=== PATIENT | female | born 1975 | race African-American/Black ===

== ENCOUNTER 2019-05-26 19:25 | Emergency (ER) | payer OTHER, SELFPAY ==
[2019-05-26] MEDS ORDERED: Ketorolac Tromethamine 30 MG/ML VIAL ONE (20:00)
--- NOTE | 2019-05-26 20:18 | RAD ---
EXAM: XR Toe(s) Rt Min 2 View DATE: 05/26/2019 7:56 PM INDICATION: Right toe injury 2 weeks ago; patient hit the right toe 2 weeks ago getting out of truck COMPARISON: None. FINDING: There is soft tissue swelling involving the third digit of the right foot. There is some pe riarticular osteopenia surrounding the third digit DIP joint. There is some mild periarticular erosions seen along the lateral aspect of the third digit distal phalangeal base as well as along the plantar aspect of the third digit distal phalangeal base. 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 IMPRESSION:Soft tissue swelling involving the third digit of the right foot. Periarticular osteopenia and intra-articular erosions surrounding the third digit distal interphalangeal joint. Findings can be seen related to an crystalline arthropathy such as gout or CPPD deposition disease. Monoarticu lar arthropathy such as this can also be seen with septic arthritis.
== END 2019-05-26 19:27 | disposition home or self-care (01) ==
LOC: ERS 19:25
DX: M10.9 Gout, unspecified (principal); I10 Essential (primary) hypertension
CPT/HCPCS: 96372; J1885

== ENCOUNTER 2019-11-27 14:54 | Emergency (ER) | payer MEDICAID, OTHER ==
[2019-11-27 16:19] LABS: #Basophils 0.1 thou/uL (0.0-0.2); #Eosinphils 0.2 thou/uL (0.0-0.7); #Lymphocytes 1.3 thou/uL (1.20-3.40); #Neutrophils 10.7 thou/uL (1.40-6.50); %Basophils 0.6 % (0.0-1.0); %Eosinophils 1.3 % (0.0-10.0); %Monocytes 7.5 % (0.0-10.0); %Neutrophils 80.7 % (42.0-75.0); Hemoglobin 11.8 g/dL (12.0-16.0); Mean Corpuscular HGB CONC 34.2 g/dL (32.0-36.0); Mean Corpuscular Hemoglobin 32.1 pg (27.0-31.0); Mean Corpuscular Volume 93.8 fL (78.0-98.0); RBC Distribution Width 12.7 % (11.5-14.5); Red Blood Cell (RBC) Count 3.67 mill/uL (4.20-5.40); White Blood Cell (WBC) Count 13.2 thou/uL (4.8-10.8)
[2019-11-27 16:22] LABS: BHCG - Serum Negative (NEGATIVE); Pregs Control Background? CLEAR/WHITE (CLR/WHITE); Pregs Control Bar Appear? YES (CONTROL BAR)
[2019-11-27 16:23] LABS: Mean Platelet Volume 11.5 fL (7.4-10.4); Platelet Count 92 thou/uL (130-400)
[2019-11-27 16:33] LABS: Platelet Morphology Comment Appears Decreased; RBC Morphology Normal
[2019-11-27 17:05] LABS: Bacteria/HPF 3+ HPF (None Seen); Bilirubin Negative (Negative); Blood, Urine 3+ (Negative); Clarity Turbid (Clear); Glucose, Urine (Dipstick) Normal (Negative); Leukocyte 250 Leu/uL (Negative); Nitrite Negative (Negative); Protein, Urine (Dipstick) 70 mg/dL (Neg-Trace); Renal Epithelial 0-3 HPF (None Seen); Squamous Epithelial 0-3 HPF (0-3); Urobilinogen Normal mg/dL (Less than 2)
== END 2019-11-27 17:27 | disposition home or self-care (01) ==
LOC: ERS 14:54
DX: N93.9 Abnormal uterine and vaginal bleeding, unspecified (principal); N39.0 Urinary tract infection, site not specified; I10 Essential (primary) hypertension
CPT/HCPCS: 36415; 81003; 81015; 84703; 85025; 87086; 99284

== ENCOUNTER 2020-01-08 03:19 | Inpatient (IN) | payer MEDICAID, OTHER ==
[2020-01-08] MEDS ORDERED: hydrALAZINE 20 MG/ML VIAL ONE (03:42)
[2020-01-08 04:20] LABS: #Basophils 0.1 thou/uL (0.0-0.2); #Eosinphils 0.1 thou/uL (0.0-0.7); #Lymphocytes 1.4 thou/uL (1.20-3.40); #Monocytes 0.5 thou/uL (0.11-0.59); #Neutrophils 7.5 thou/uL (1.40-6.50); %Basophils 0.7 % (0.0-1.0); %Eosinophils 1.5 % (0.0-10.0); %Lymphocytes 14.4 % (21.0-51.0); %Monocytes 4.7 % (0.0-10.0); %Neutrophils 78.6 % (42.0-75.0); Hemoglobin 10.7 g/dL (12.0-16.0); Mean Corpuscular Hemoglobin 30.1 pg (27.0-31.0); Mean Corpuscular Volume 91.1 fL (78.0-98.0); Mean Platelet Volume 9.5 fL (7.4-10.4); Platelet Count 190 thou/uL (130-400); RBC Distribution Width 14.1 % (11.5-14.5); Red Blood Cell (RBC) Count 3.56 mill/uL (4.20-5.40); White Blood Cell (WBC) Count 9.5 thou/uL (4.8-10.8)
[2020-01-08 04:41] LABS: ALT (SGPT) 74 U/L (8-55); AST (SGOT) 46 U/L (5-34); Alkaline Phosphatase 138 U/L (40-110); Anion Gap 16 mmol/L (10-20); BUN (Urea Nitrogen) 69 mg/dL (7.0-18.7); Bilirubin, Total 0.6 mg/dL (0.2-1.2); Calc. Creatinine Clearance 0 mL/min (70-130); Calcium 9.2 mg/dL (7.8-10.44); Carbon Dioxide 22 mmol/L (22-29); Chloride 101 mmol/L (98-107); Estimated GFR-MDRD 8; Globulin 2.9 g/dL (2.4-3.5); Glucose 112 mg/dL (70-105); Potassium 3.4 mmol/L (3.5-5.1); Protein, Total 6.9 g/dL (6.0-8.3); Sodium 136 mmol/L (136-145)
[2020-01-08 04:41] LABS: Amphetamine Not Detected (NotDetected); Barbiturates Screen Not Detected (NotDetected); Benzodiazepine Screen Not Detected (NotDetected); Cocaine Metabolite Screen Not Detected (NotDetected); Medtox Control Line Valid? VALID (VALID); Medtox Reader # READER 4; Methadone Not Detected (NotDetected); Methamphetamine Not Detected (NotDetected); Opiate Screen Not Detected (NotDetected); Oxycodone Screen Not Detected (NotDetected); Phencyclidine (PCP) Not Detected (NotDetected); THC/Cannabinoid Screen Not Detected (NotDetected); Tricyclic Screen Not Detected (NotDetected)
[2020-01-08] MEDS ORDERED: Labetalol HCl 100 MG/20 ML VIAL ONE (04:54)
[2020-01-08 05:02] LABS: CKMB 5.3 ng/mL (0-6.6)
[2020-01-08] MEDS ORDERED: Aspirin 325 MG TAB ONE (05:34)
[2020-01-08] MEDS ORDERED: Nitroglycerin 2% Ointment 1 INCH/1 GM Packet ONE (05:34)
[2020-01-08] MEDS ORDERED: Furosemide 40 MG/4 ML VIAL ONE (05:34)
[2020-01-08] MEDS ORDERED: Ondansetron PF 4 MG/2 ML Vial ONE (05:37)
[2020-01-08] MEDS ORDERED: Nitroglycerin 0.4 MG TAB (25 Tab Bottle) PO PRN (05:42)
[2020-01-08] MEDS ORDERED: niCARdipine 20MG In NaCl 20 MG/200 ML BAG ONE (06:03)
--- NOTE | 2020-01-08 06:11 | PDOC.EVN ---
Event Note - Event Note Event Note: [id number] dictated
[2020-01-08 07:05] LABS: Troponin I 0.199 ng/mL (< 0.028)
--- NOTE | 2020-01-08 08:19 | HP ---
CHIEF COMPLAINT: Shortness of breath and headache. HISTORY OF PRESENT ILLNESS: Ms. Cheatham is a 44-year-old female with past medical history of hypertension, chronic kidney disease ?stage 5, presents to the emergency room with headache, nausea, and shortness of breath that has been going on for the last month. The patient said that her primary care physician recently adjusted her blood pressure medications because her kidney function has been worsening. She is currently on losartan for hypertension. Workup in the emergency room, the patient initially had a blood pressure of 221/151. The patient was given labetalol. Blood pressure went down to 200/130. The patient is going to be started on IV Cardene drip. On lab work, she was found to have a creatinine of 6.8. Potassium is 3.4. Troponin 0.2. BNP 50505. Denies fevers, chills. The patient is being admitted to hospital for further management. PAST MEDICAL HISTORY: 1. Hypertension. 2. Chronic kidney disease. PAST SURGICAL HISTORY: Kidney stone stent. FAMILY HISTORY: Reviewed and noncontributory. SOCIAL HISTORY: Smokes 1 pack a day. Drinks alcohol socially. Denies drug abuse. HOME MEDICATIONS: Please see home medication reconciliation form for updated medications. ALLERGIES: NO KNOWN ALLERGIES. REVIEW OF SYSTEMS: Review of 14 systems negative except what is mentioned in history of present illness. PHYSICAL EXAMINATION: GENERAL: The patient is awake, alert, in moderate distress. VITAL SIGNS: Blood pressure 200/130. HEAD: Normocephalic, atraumatic. NECK: Supple. CHEST: Few bibasilar crackles. HEART: S1, S2. Regular. ABDOMEN: Soft, nontender. Bowel sounds present. NEUROLOGIC: Awake, alert, oriented x3. No focal deficits. PSYCHIATRIC: Unable to assess. EXTREMITIES: No clubbing or cyanosis. GENITOURINARY: No suprapubic tenderness. No flank tenderness. LABORATORY DATA: As mentioned above in the history of present illness. ASSESSMENT: 1. Hypertensive emergency. 2. Acute congestive heart failure. 3. Acute renal failure on chronic kidney disease. 4. Elevated troponin? Rule out acute coronary syndrome. 5. History of kidney stones. 6. Headache. PLAN: 1. Admit. 2. The patient is going to be started on IV Cardene drip and will be admitted to CCU. 3. Serial troponins. 4. Aspirin. 5. 2D echo. 6. Consult Jewelry Enameler for evaluation and further management. 7. Consult Applications Sales Representative for evaluation and further management. 8. Reconcile home medications. 9. DVT prophylaxis as appropriate. 10. Expected length of stay, 2 midnights or more. Job ID: [id number]
[2020-01-08] MEDS: Furosemide 40 MG/4 ML VIAL SLOW IVP SCH ×2 (08:39→14:31)
[2020-01-08] MEDS: Aspirin 325 MG TAB PO SCH (08:40)
[2020-01-08] MEDS: Heparin 5,000 UNITS/ML VIAL SC SCH ×3 (08:47→20:15)
[2020-01-08] MEDS ORDERED: Metoprolol Tartrate 25 MG TAB PO SCH ×2 (09:00→11:00)
--- NOTE | 2020-01-08 09:02 | RAD ---
CHEST 1 VIEW: HISTORY: Dyspnea, headache, nausea and vomiting, body aches. COMPARISON: 11/28/2016. FINDINGS: Heart size is borderline. Mild bilateral vascular congestion with some increased linear and intersti tial changes noted bilaterally and slight costophrenic angle blunting suggesting probable mild or min imal edema versus diffuse pneumonitis which could include viral varieties. No confluent pneumonia. IMPRESSION: Mild cardiomegaly with probable small pleural effusions and vascular congestion and probably mild naila ateral edema. No confluent lobar pneumonia. Correlate clinically. Consider followup with PA and la teral chest. POS: [facility]
[2020-01-08] MEDS ORDERED: Senokot 8.6 MG TAB PO PRN (09:48)
[2020-01-08] MEDS: Acetaminophen 325 MG TAB PO PRN ×2 (10:03→20:15)
[2020-01-08] MEDS ORDERED: niCARdipine 25 MG in Sodium Chloride 0.9% 250 ML 240 ML IVPB SCH (10:30)
[2020-01-08 10:41] LABS: Troponin I 0.206 ng/mL (< 0.028)
[2020-01-08] MEDS ORDERED: Potassium Chloride 20 MEQ TAB PO PRN (10:45)
--- NOTE | 2020-01-08 11:29 | ULT ---
EXAM: US Abdominal CLINICAL HISTORY: Elevated liver function tests. Nausea, vomiting and upper abdominal pain. COMPARISON: None. FINDINGS: Pancreas: The head and proximal pancreatic body have a normal echotexture. IVC: Visualized IVC has a normal caliber. Aorta: Visualized aorta has a normal caliber. Liver:Normal hepatic parenchymal echotexture. No hepatic masses or intrahepatic biliary dilatation. T he contour of the hepatic margin is maintained. Right hepatic lobe measures 15.8 cm. Gallbladder: No sonographic evidence of cholelithiasis, gallbladder wall thickening or pericholecysti c fluid. Zhao's sign:Negative CBD: 0.55 cm common bile duct diameter Portal vein: Patent. Appropriate directional flow. Right kidney: Normal cortical echotexture. No hydronephrosis. Right kidney measuring 5.9 x 4.6 x 9.9 cm in length. Left kidney: Normal cortical echotexture. No hydronephrosis . Left kidney measuring 7.1 x 3.5 x 4.5 cm in length Spleen: No myometrial echotexture, measuring 8.6 cm in maximum dimension IMPRESSION: Unremarkable exam.
[2020-01-08 11:46] LABS: BHCG - Serum Negative (NEGATIVE); Pregs Control Background? CLEAR/WHITE (CLR/WHITE); Pregs Control Bar Appear? YES (CONTROL BAR)
[2020-01-08] MEDS: traMADol HCl 50 MG TAB PO PRN (12:21)
[2020-01-08 13:43] LABS: HBCM Index 0.05 S/CO (0-0.79); HBSAg Index 0.15 S/CO (0-0.99); Hep A IgM AB Non-Reactive (NonReactive); Hep A IgM S/CO 0.11 S/CO (0-0.79); Hep B Surf Ag Non-Reactive S/CO (NonReactive); Hep C IgG Ab Non-Reactive (NonReactive); Hep C Index 0.09 S/CO (0-0.79); Hepatitis B Core IgM Abs Non-Reactive (NonReactive)
--- NOTE | 2020-01-08 14:00 | CON ---
DATE OF CONSULTATION: 01/08/2020 HISTORY OF PRESENT ILLNESS: Colette Cheatham is a 44-year-old female with hypertension. She apparently has had intermittent nausea and vomiting for a month. She says she has been unable to keep her blood pressure pills down. She has chronic kidney disease and is followed by seo marketing specialist here in [facility]. Blood pressure on presentation was 221/151. She has subsequently been admitted to the critical care unit. She has been weaned off her Cardene drip. Her blood pressure is back in the normal range currently. Her only complaint is a headache. She has not thrown up today, but said she did throw up yesterday. She reports pain in her epigastrium. PAST MEDICAL HISTORY: Remarkable for: 1. Chronic kidney disease. 2. Hypertension. 3. Nephrolithiasis in the past. SOCIAL HISTORY: She is a pack-a-day smoker. Drinks occasionally. MEDICATIONS: She says she takes her medicine when she could keep it down, but had been unable to keep her medicine down. REVIEW OF SYSTEMS: Ten points otherwise negative. She has never had right upper quadrant pain or fatty food intolerance. She denies hematemesis or bright red blood per rectum or melena. PHYSICAL EXAMINATION: VITAL SIGNS: Heart rate is in the 70s, blood pressure 144/88, respiratory rates in the teens, and oximetry is 99. HEENT: Pupils are equal. Sclerae are anicteric. Extraocular movements are full. NECK: Supple. No lymphadenopathy. LUNGS: Clear. HEART: Regular rhythm. S1 and S2 are normal. ABDOMEN: Soft and nontender. EXTREMITIES: Without clubbing, cyanosis, or edema. LABORATORY DATA: White count 9.5, hemoglobin 10.7, and platelets 190. Electrolytes are normal. BUN 69 and creatinine 6.8. Creatinine in the system here last checked in 2017 was 0.93. IMPRESSION: Persistent nausea and vomiting. She is not uremic. I supposed some of this could be related to her kidney disease. She also has mildly elevated liver enzymes. The etiology of this is unclear. Her BNP was 15,945. It is not surprising that she felt bad with a blood pressure with a diastolic of over 150. Mild interstitial edema is likely related to her blood pressure. It is very unlikely she has a COVID infection. Gastroenterology probably needs to be involved to make sure she does not have some type of chronic gastritis leading to her persistent symptoms. I doubt this is gallbladder disease. I doubt it is entirely explained by renal insufficiency. She is still puking when she goes home. She would not be able to keep her blood pressure pills down, so we need to get this issue resolved while she is here. Once she is weaned off Cardene, she could in theory be transferred out of Critical Care Unit. TIME SPENT: This is a 70-minute consult, 50% of the time was spent on the unit coordinating care. Job ID: [id number] MARIFER
--- NOTE | 2020-01-08 14:08 | CON ---
DATE OF CONSULTATION: REASON FOR CONSULTATION: Elevated BNP. PRIMARY BINDER LOCKSTITCH: None. HISTORY OF PRESENT ILLNESS: Ms. Cheatham is a 44-year-old woman, who has not been seen or evaluated by Cardiology in the past. She recently presented with hypertensive urgency. Blood pressure was 221/151 while in the emergency room. She had associated shortness of breath. Now that blood pressure is better, symptoms are much improved. Her BNP was 15,000. No chest pain or pressure, shortness of breath, or associated symptoms. PAST MEDICAL HISTORY: Hypertension and chronic kidney disease. SOCIAL HISTORY: Positive tobacco use. ALLERGIES: NONE. REVIEW OF SYSTEMS: A 10-point review of systems is reviewed as above, otherwise negative. HOME MEDICATIONS: Include: 1. Losartan. 2. Atorvastatin. PHYSICAL EXAMINATION: VITAL SIGNS: Blood pressure 140/92, pulse 68, respirations 20. GENERAL: The patient is a pleasant woman, in no acute distress, appears stated age. HEAD, EYES, EARS, NOSE AND THROAT: Sclerae without icterus. Mouth: Moist mucous membranes, normal palate. NECK: No jugular venous distention. Carotid upstroke is brisk. No bruits bilaterally. LUNGS: Clear to auscultation. HEART: Regular rate and rhythm, normal S1 and S2. ABDOMEN: Soft, nontender, nondistended. EXTREMITIES: No edema. LABORATORY DATA: Hemoglobin 10.7, hematocrit 32.4. Creatinine 6.8 with GFR of 8. Troponin 0.224. BNP as above. IMPRESSION: 1. Hypertensive crisis. 2. Shortness of breath. 3. Elevated troponin. RECOMMENDATIONS: Ms. Cheatham's elevated BNP is likely multifactorial. She may have a component of systolic versus diastolic dysfunction in addition to creatinine of 6.8. At this point, we would recommend conservative therapy. We would recommend reviewing her echo. Since she is followed by Renal, we would recommend blood pressure management per Renal. Recommendation on extent of renal dysfunction will also be per Renal. Certainly, it seems reasonable with combined diastolic/systolic dysfunction in addition to advanced renal insufficiency, this may have precipitated her BNP of 15,000. Job ID: [id number]
[2020-01-08] MEDS ORDERED: Propofol 1,000 MG/100 ML VIAL IV ONE (15:10)
[2020-01-08] MEDS ORDERED: Nitroglycerin 50 MG/250 ML BOT 0 ML ONE (15:18)
--- NOTE | 2020-01-08 15:43 | PDOC.HOSPP ---
- Subjective Encounter Date: 01/08/20 Encounter Time: 12:10 Subjective: still has some nasuea; BP is improving, on cardene gtt, i have increased BB. - Objective Vital Signs & Weight: Vital Signs (12 hours) Temp Pulse Ox 01/08/20 12:00 98.2 F 01/08/20 08:00 98.1 F 95 Weight Weight 123 lb 14.397 oz Most Recent Monitor Data Heart Rate from ECG 61 NIBP 151/104 NIBP BP-Mean 119 Respiration from ECG 13 SpO2 100 I&O: 01/07/20 01/08/20 01/09/20 06:59 06:59 06:59 Intake Total 520 Output Total 600 Balance -80 Result Diagrams: 01/08/20 03:47 01/08/20 03:47 Hospitalist ROS - Medication Medications: Active Medications Generic Name Dose Route Start Last Admin Trade Name Freq PRN Reason Stop Dose Admin Acetaminophen 650 mg 01/08/20 09:47 01/08/20 10:03 Tylenol PO 650 mg Q6H PRN Administration Headache/Fever or Pain Aspirin 325 mg 01/08/20 09:00 01/08/20 08:40 Aspirin PO Not Given DAILY FIDENCIO Furosemide 40 mg 01/08/20 06:00 01/08/20 14:31 Lasix SLOW IVP 40 mg 0600,1400 FIDENCIO Administration Heparin Sodium (Porcine) 5,000 units 01/08/20 09:00 01/08/20 08:47 Heparin SC 5,000 units TID FIDENCIO Administration Sodium Chloride 10 ml 01/08/20 09:00 01/08/20 08:51 Flush - Normal Saline IVF 10 ml Q12HR FIDENCIO Administration Tramadol HCl 50 mg 01/08/20 09:47 01/08/20 12:21 Ultram PO 50 mg Q8H PRN Administration Breakthrough Pain - Exam General Appearance: NAD, awake alert Eye: PERRL ENT: normocephalic atraumatic Neck: supple Heart: RRR, normal peripheral pulses Respiratory: CTAB, normal chest expansion Gastrointestinal: soft, normal bowel sounds Neurological: no focal deficits Hosp A/P - Plan persistent N/V - mulitifactorial, with main concern for worsening kidney fn.. --renal on board. HTN Urgency abn trop d/t type demand ischemia w.. HTN Urgency --on cardene gtt -- wean off as BB dose inc'd to 50 bid -cardiology and renal on board. A/ch combined syn and diastolikc dysnf Interstitial edema . high BNP - 15K --lasix IV -s-trict monitoring i/O and daily wts -echo ordered on /CKD III hx of nephrolithiasis -not on nephrotoxic [other than ultram] -caution w.. aggressive IV diuresis. full code
--- NOTE | 2020-01-08 16:00 | CON ---
DATE OF CONSULTATION: 01/08/2020 REQUESTING PHYSICIAN: Dr. Vazquez. REASON FOR CONSULTATION: Nausea and vomiting. HISTORY OF PRESENT ILLNESS: Colette Cheatham is a very pleasant 44-year-old woman with a history of hypertension and chronic kidney disease. She was admitted to the hospital overnight with hypertensive emergency with a blood pressure initially 221/151. She was placed on a Cardene drip and blood pressures have improved significantly this morning. Presenting symptoms included headaches and shortness of breath as well as worsening nausea. She reports that really over the past month, she has been having significant intermittent nausea and vomiting, bothering her most days. It has become progressively worse and more difficult to take her antihypertensive medications. Along with the nausea, she has been having pain in the epigastrium and left upper quadrant. There has been no fever, no hematemesis or any change in bowel movements. She is not having diarrhea, constipation, melena, or hematochezia with this. Upon presentation, labs are showing acute on chronic renal failure with BUN 69, creatinine 6.0. BNP is also very elevated to 15,945. She also does have some mild LFT elevation with AST 46, ALT 74. She has been treated with Cardene drip, which was just now discontinued this morning. Nephrology and Cardiology evaluations including echocardiogram are all pending today. REVIEW OF SYSTEMS: Full review of systems including constitutional, head, eyes, ears, nose, throat, GI, , cardiovascular, respiratory, musculoskeletal, neurologic systems is negative except as noted in the HPI. PAST MEDICAL HISTORY: Hypertension; chronic kidney disease, not on dialysis; urolithiasis with stent placement. ALLERGIES: NO KNOWN DRUG ALLERGIES. OUTPATIENT MEDICATIONS: 1. Losartan 50 mg daily. 2. Atorvastatin 20 mg daily. INPATIENT MEDICATIONS: 1. Aspirin 325 mg daily. 2. Lasix 40 mg IV twice daily. 3. Heparin 5000 units subcutaneously t.i.d. 4. Hydralazine 20 mg p.r.n. 5. Metoprolol 25 mg b.i.d. 6. Zofran p.r.n. 7. Senna p.r.n. 8. Tramadol p.r.n. FAMILY HISTORY: Noncontributory. SOCIAL HISTORY: The patient does smoke one pack of cigarettes per day. Alcohol use is social. No drug use. PHYSICAL EXAMINATION: VITAL SIGNS: Blood pressure 138/88, pulse 78, and 98% oxygen saturation on room air. GENERAL: A 44-year-old woman, lying in bed comfortably, in no distress. SKIN: No jaundice. No rashes were palpable. EYES: No scleral icterus. Extraocular movements are intact. ENT: Mucous membranes are moist. No oral lesions. LYMPH: No submandibular or supraclavicular lymphadenopathy. THYROID: Nontender to palpation. HEART: Regular rate and rhythm. LUNGS: Bibasilar crackles. No wheezing. No respiratory distress. ABDOMEN: Flat. Bowel sounds present. Soft. Some tenderness to palpation in the left upper quadrant and epigastrium. Nontender elsewhere. There is what I believed to be palpable splenomegaly. EXTREMITIES: No peripheral edema. VESSELS: Radial pulses 2+ bilaterally. NEUROLOGIC: Cranial nerves 2 through 12 are intact bilaterally. No focal deficits. LABORATORY STUDIES: Hemoglobin 10.7, WBC 9.5, platelets 190, MCV 91.1. Sodium 136, potassium 3.4, BUN 69, creatinine 6.80, glucose 112, total bilirubin 0.6, alkaline phosphatase 138, AST 46, ALT 74, albumin 4.0. Troponin 0.2, stable. BNP is 15,945. IMAGING STUDIES: Chest x-ray showed cardiomegaly and mild bilateral pulmonary edema. ASSESSMENT AND PLAN: 1. Nausea and vomiting. 2. Left upper quadrant and epigastric pain. 3. Elevated LFTs, mild. 4. Hypertensive emergency. 5. Acute on chronic kidney injury. 6. Possible acute congestive heart failure. The patient and I discussed a wide differential for nausea and vomiting. This has really been going on for the past month. It may be primarily a manifestation of worsening kidney failure and uremia, but also need to consider primary gastrointestinal pathology or biliary etiology. She is having abdominal pain with this as well as mild LFT elevation. Awaiting Cardiology and Nephrology evaluations as well today. For our part, we will obtain an abdominal ultrasound, trend LFTs tomorrow as well as get a lipase with tomorrow morning's labs. We will get viral hepatitis serologies. We will tentatively plan for diagnostic esophagogastroduodenoscopy tomorrow, if okay from a cardiopulmonary perspective. Continue with diuresis in the meantime. Continue with antiemetics as needed. Thank you for the consultation. We will follow up results of labs and ultrasound, and plan for esophagogastroduodenoscopy tomorrow. Please call anytime with questions or concerns. Job ID: [id number]
--- NOTE | 2020-01-08 18:48 | CON ---
DATE OF CONSULTATION: HISTORY OF PRESENT ILLNESS: Ms. Cheatham is a 44-year-old black female, who initially was admitted for shortness of breath and headache. She was found to have CHF as well as an acute kidney injury/over chronic renal failure. BNP was noted at 15,945. She was also noted to have a poorly controlled blood pressure and for that reason is Cardene drip. Once the blood pressure was improved, the patient started breathing better. She voices no new complaints this morning. REVIEW OF SYSTEMS: Occasional nausea and vomiting. No diarrhea. No constipation. No productive cough. No fever or chills. Shortness of breath, resolved. No chest pain. Occasional headache. No diplopia. No gross hematuria. No dysuria. No urinary frequency. PAST MEDICAL HISTORY: Includes 1. Hypertension. 2. Recent diagnosis of kidney problem. 3. Nephrolithiasis. PAST SURGICAL HISTORY: Status post ureteral stent placement, status post cystoscopy. FAMILY HISTORY: No family history of ESRD. SOCIAL HISTORY: Patient is . Lives in [place]. Three children. Smokes about one pack a day for the last 25 years. Alcohol, 6 packs per week. Education, high school. Used to work in [employer]. Denies any IV drug abuse. ALLERGIES: NONE. TRAUMA: None. IMMUNIZATIONS: Up to date. HOSPITALIZATIONS: Please see past medical history. PHYSICAL EXAMINATION: VITAL SIGNS: Blood pressure is noted at 138/88, heart rate is 78, respiratory rate 19, and O2 saturation 98%. GENERAL: Awake, alert, and comfortable, not in distress. SKIN: Adequate turgor. HEENT: Patient has a slightly pale conjunctivae. Anicteric sclerae. No neck mass. No carotid bruits. No JVD. CHEST: No deformities. LUNGS: Decreased breath sounds. HEART: Normal sinus rhythm. No murmur. No gallops. No rubs. ABDOMEN: Globular, soft, nontender, no masses. EXTREMITIES: No edema. No deformities. NEUROLOGIC: Oriented to 3 spheres. Moving all extremities. No tremors. No asterixis. No ataxia. IMAGING: Abdominal ultrasound was said to be normal. There is no hydronephrosis. There is a normal cortical echotexture. Chest x-ray of January 08, 2020, mild cardiomegaly with increased lung markings. LABORATORIES: Of January 08, 2020, white count 9.5 and hemoglobin 10.7. Sodium 136, potassium 3.4, chloride 101, carbon dioxide 22, BUN 69, creatinine 6.8, AST 46, and ALT 74. Troponin I 0.206. Albumin is 4.0. Urinalysis of November 27, 2019, shows rbc 11 to 20, wbc 11 to 20, protein is 70. November 28, 2016, creatinine was 0.93. ASSESSMENT/PLAN: 1. Acute kidney injury, consider possible hemodynamically mediated dysfunction. Patient was noted to have a poorly controlled blood pressure as well was in congestive heart failure. I would probably continue to observe with this patient. Continue current diuretic regimen. No indication for any emergent hemodialysis with this patient. Her potassium is not elevated and volume status is much improved with control of the blood pressure. 2. Hypertension, currently on high Cardene drip and blood pressure is much improved. 3. Chronic renal failure. The possibility of a chronic glomerulonephritis remains with this patient, especially with the proteinuria and the hematuria. We will simply observe this patient for the moment. We will recheck basic metabolic profile tomorrow. Please note, the renal ultrasound was within normal limits. There is no evidence of obstruction. Agree with the current management. Job ID: [id number]
[2020-01-08] MEDS: Metoprolol Tartrate 50 MG TAB PO SCH (20:15)
[2020-01-09 04:15] LABS: #Basophils 0.1 thou/uL (0.0-0.2); #Eosinphils 0.3 thou/uL (0.0-0.7); #Lymphocytes 1.5 thou/uL (1.20-3.40); #Monocytes 0.4 thou/uL (0.11-0.59); #Neutrophils 4.7 thou/uL (1.40-6.50); %Eosinophils 3.7 % (0.0-10.0); %Lymphocytes 21.6 % (21.0-51.0); %Monocytes 6.3 % (0.0-10.0); %Neutrophils 67.4 % (42.0-75.0); Hemoglobin 9.5 g/dL (12.0-16.0); Mean Corpuscular HGB CONC 32.1 g/dL (32.0-36.0); Mean Corpuscular Hemoglobin 29.6 pg (27.0-31.0); Mean Corpuscular Volume 92.1 fL (78.0-98.0); Mean Platelet Volume 9.7 fL (7.4-10.4); Platelet Count 163 thou/uL (130-400); RBC Distribution Width 14.2 % (11.5-14.5); Red Blood Cell (RBC) Count 3.21 mill/uL (4.20-5.40); White Blood Cell (WBC) Count 6.9 thou/uL (4.8-10.8)
[2020-01-09] MEDS: hydrALAZINE 20 MG/ML VIAL SLOW IVP PRN ×2 (07:24→11:23)
[2020-01-09 08:04] LABS: Anion Gap 16 mmol/L (10-20); BUN (Urea Nitrogen) 73 mg/dL (7.0-18.7); Calc. Creatinine Clearance 10 mL/min (70-130); Calcium 8.1 mg/dL (7.8-10.44); Carbon Dioxide 22 mmol/L (22-29); Chloride 102 mmol/L (98-107); Estimated GFR-MDRD 8; Glucose 96 mg/dL (70-105); Potassium 3.7 mmol/L (3.5-5.1); Sodium 136 mmol/L (136-145)
[2020-01-09] MEDS ORDERED: PROPOFOL 200 MG/20 ML VIAL ONE (08:21)
--- NOTE | 2020-01-09 08:54 | OP ---
DATE OF PROCEDURE: 01/09/2020 TETRYL DISSOLVER OPERATOR SURGEON: None. PROCEDURE: Esophagogastroduodenoscopy with biopsies. INDICATIONS: 1. Nausea and vomiting. 2. Left upper quadrant pain. MEDICATIONS: See Anesthesia record. FINDINGS: After discussion of the risks, benefits, and alternatives of the procedure, informed consent was obtained and witnessed. Pre-endoscopic cardiopulmonary examination was satisfactory. Time-out was performed before sedation was achieved. Sedation was achieved with Anesthesia assistance in the Endoscopy Unit. A Pentax adult upper endoscope was placed into the oropharynx and passed through the cricopharyngeus under direct visualization. The esophageal mucosa appeared normal throughout with a normal-appearing Z-line. The endoscope was advanced into the stomach. Forward and retroflexed views of the entire gastric mucosa were obtained. There was diffuse gastritis, characterized by patches of moderate erythema throughout the gastric fundus, body, and antrum. There is some friability, though no significant erosions or ulcerations noted. Biopsies were obtained from the gastric antrum, body, and fundus to rule out H pylori infection. The endoscope was advanced through the pylorus and into the first and second portions of the duodenum, which appeared normal. The upper endoscope was completely withdrawn and the patient allowed to recover. The patient tolerated the procedure well. There were no immediate postprocedure complications. IMPRESSION: 1. Diffuse moderate nonerosive gastritis, biopsied. 2. Otherwise, normal esophagogastroduodenoscopy. RECOMMENDATIONS: 1. Follow up pathology results on the gastric biopsies. If H pylori is present, treat with triple therapy and confirm eradication. 2. Advance diet. 3. Stop smoking. 4. Pantoprazole 40 mg daily. 5. We will see her back in the GI Clinic in 3 to 4 weeks. GI will sign off. Please call back anytime with questions or concerns. Job ID: [id number]
[2020-01-09] MEDS: Heparin 5,000 UNITS/ML VIAL SC SCH ×3 (09:08→20:02)
[2020-01-09] MEDS: Furosemide 40 MG/4 ML VIAL SLOW IVP SCH ×2 (09:08→15:02)
[2020-01-09] MEDS: Aspirin 325 MG TAB PO SCH (09:09)
[2020-01-09] MEDS: Metoprolol Tartrate 50 MG TAB PO SCH (09:09)
[2020-01-09] MEDS: Acetaminophen 325 MG TAB PO PRN (09:12)
--- NOTE | 2020-01-09 10:04 | PDOC.CPN ---
- Subjective Date: 01/09/20 Time: 10:01 Interval history: Patient without complaints. s/p EGD today. - Review of Systems General: denies: fever/chills, weight/appetite/sleep changes, night sweats, fatigue Respiratory: denies: cough, congestion, shortness of breath, exercise intolerance Cardiovascular: denies: chest pain, palpitation, edema, paroxysmal nocturnal dyspnea, orthopnea Gastrointestinal: denies: nausea, vomiting, diarrhea, constipation, abd pain, GI bleeding Musculoskeletal: denies: pain, tenderness, stiffness, swelling, arthritis/ arthralgias Neurological: denies: numbness, syncope, seizure, weakness - Objective Allergies/Adverse Reactions: Allergies Allergy/AdvReac Type Severity Reaction Status Date / Time No Known Allergies Allergy Unverified 10/16/19 06:10 Visit Medications: Current Medications Acetaminophen (Tylenol) 650 mg PO Q6H PRN PRN Reason: Headache/Fever or Pain Last Admin: 01/09/20 09:12 Dose: 650 mg Amlodipine Besylate (Norvasc) 5 mg PO 1700 [facility] Aspirin (Aspirin) 325 mg PO DAILY [facility] Last Admin: 01/09/20 09:09 Dose: 325 mg Carvedilol (Coreg) 12.5 mg PO BID-[facility] Furosemide (Lasix) 40 mg SLOW IVP 0600,1400 [facility] Last Admin: 01/09/20 09:08 Dose: 40 mg Heparin Sodium (Porcine) (Heparin) 5,000 units SC TID [facility] Last Admin: 01/09/20 09:08 Dose: 5,000 units Hydralazine HCl (Apresoline) 20 mg SLOW IVP Q4H PRN PRN Reason: Hypertension Last Admin: 01/09/20 07:24 Dose: 20 mg Nicardipine HCl 25 mg/ Sodium (Chloride) 250 mls @ 0 mls/hr IVPB INF [facility]; Protocol Nitroglycerin (Nitrostat) 0.4 mg PO Q5MIN PRN PRN Reason: Chest Pain Ondansetron HCl (Zofran) 4 mg IVP Q6H PRN PRN Reason: Nausea/Vomiting Pantoprazole Sodium (Protonix) 40 mg PO DAILY [facility] Potassium Chloride (K-Dur) 40 meq PO ASDIR PRN PRN Reason: FOR SERUM K+ 2.5 - 3.5 Senna (Senokot) 2 tab PO BIDPRN PRN PRN Reason: Constipation Sodium Chloride (Flush - Normal Saline) 10 ml IVF Q12HR [facility] Last Admin: 01/09/20 09:09 Dose: 10 ml Sodium Chloride (Flush - Normal Saline) 10 ml IVF PRN PRN PRN Reason: Saline Flush Tramadol HCl (Ultram) 50 mg PO Q8H PRN PRN Reason: Breakthrough Pain Last Admin: 01/08/20 12:21 Dose: 50 mg Vital Signs & Weight: Vital Signs Temp Pulse Resp BP BP Pulse Ox 01/09/20 07:29 98.0 F 66 18 182/118 H 97 01/09/20 07:24 66 182/118 H 01/09/20 04:00 98.6 F 61 18 161/104 H 100 01/08/20 23:26 158/105 H Weight 130 lb 3.2 oz - Physical Exam General: alert & oriented x3, appears well HEENT: mucus membranes moist Neck: supple neck Cardiac: regular rate and rhythm Lungs: clear to auscultation Neuro: grossly intact Abdomen: soft, non-tender Extremities: no edema Skin: clear Musculoskeletal: no pain - Labs Result Diagrams: 01/09/20 04:00 01/09/20 04:00 Troponin/CKMB CK-MB (CK-2) 5.3 ng/mL (0-6.6) 01/08/20 03:47 Troponin I 0.206 ng/mL (< 0.028) H 01/08/20 09:59 - Assessment/Plan Assessment/Plan: 1. HTN Urgency 2. Abnormal EKG - ? LVH 3. CKD-V 4. Elevated trop Add Norvasc 5mg once daily. Change Toprol to Coreg for improved BP control. ECHO ordered for today. Elevated trop could be related to HTN urgency and demand ischemia, but needs stress test in the future as BP improved to definitively r/o CAD.
--- NOTE | 2020-01-09 10:57 | PRG ---
DATE OF SERVICE: 01/09/2020 SERVICE: Renal Medicine. SUBJECTIVE: Ms. Cheatham is a 44-year-old black female, who was seen for an acute kidney injury on top of a possible chronic renal failure. She was also noted to have labile hypertension. Please note that the patient had stopped taking her BP medications in the last several days prior to admission. She may be having a rebound hypertension at that time. She stopped the BP medications because she has been having nausea and vomiting. She has also been evaluated by Cardiology, Pulmonary. No new complaints today except for mild shortness of breath. The patient is being diuresed. The patient voices no other complaints. She denies any chest pain or syncopal episode. OBJECTIVE: VITAL SIGNS: Blood pressure 182/118, heart rate 66, respiratory rate 18, temperature 98, and pulse ox 97%. GENERAL: Noted to be awake, alert, comfortable, not in overt distress. SKIN: Adequate turgor. HEENT: She has slightly pale conjunctivae. Anicteric sclerae. NECK: No neck mass. No carotid bruits. No JVD. CHEST: No deformities. LUNGS: Clear breath sounds. HEART: Normal sinus rhythm. No murmur. No gallops. No rubs. ABDOMEN: Globular, soft, and nontender. No masses. EXTREMITIES: No edema. No deformities. MEDICATIONS: Medications of January 09, 2020, were also reviewed. LABORATORY DATA: Laboratories of January 09, 2020; sodium 136, potassium 3.7, chloride 102, carbon dioxide 22, BUN 73, creatinine 6.95, glucose 96, and calcium 8.1. BNP 10,909. Troponin I 0.206. ASSESSMENT AND PLAN: 1. Acute kidney injury/chronic renal failure. Creatinine is improved. We will continue to optimize blood pressure control. Currently, on IV diuretics due to the shortness of breath as well as possible congestive heart failure. No indication for any emergent hemodialysis. The patient is being worked up for a possible cause of her chronic renal failure. Previous urinalysis has shown proteinuria and hematuria. We will rule out vasculitis with this patient - ANCA and SHANE has been ordered. 2. Hypertension. We will add clonidine 0.1 mg tablet b.i.d. Currently, Cardiology is following the patient. Amlodipine was started today at 5 mg tablet once a day. 3. Mild shortness of breath - cardiac echo is currently pending. The initial chest x-ray on January 08, 2020, showed mild cardiomegaly with increased lung markings. She is currently on diuretics. Agree with current management. Recheck basic metabolic panel and CBC in a.m. Job ID: [id number]
[2020-01-09 12:40] LABS: Bacteria/HPF None Seen HPF (None Seen); Bilirubin Negative (Negative); Blood, Urine 3+ (Negative); Clarity Clear (Clear); Glucose, Urine (Dipstick) Normal (Negative); Leukocyte Negative Leu/uL (Negative); Nitrite Negative (Negative); Protein, Urine (Dipstick) 20 mg/dL (Neg-Trace); RBC/HPF 21-50 HPF (0-3); Squamous Epithelial 0-3 HPF (0-3); Urobilinogen Normal mg/dL (Less than 2)
--- NOTE | 2020-01-09 15:18 | PRG ---
DATE OF SERVICE: 01/09/2020 SUBJECTIVE: Colette Cheatham says her stomach feels better. Her headaches better. Her hemodynamics are stable. She underwent endoscopy which showed finding suggestive of diffuse gastritis. OBJECTIVE: VITAL SIGNS: Her blood pressure is still intermittently elevated. This morning she is 182/118, but at noon she is 149/70. LUNGS: Clear. HEART: Regular rhythm. ABDOMEN: Soft. LABORATORY DATA: Creatinine 6.95, BUN 73, yesterday creatinine was 6.8. I suspect with control of her blood pressure, her creatinine is going to go up. Her BNP today was 10,909. IMPRESSION: 1. Hypertensive renal disease. 2. Hypertension out of control with hypertensive emergency on presentation. 3. Gastritis, rule out Helicobacter. PLAN: Continue supportive care. Await gastric biopsies. Monitor renal function. Job ID: [id number]
[2020-01-09 15:38] LABS: ANA Symphony (Qualitative) Negative (Negative); ANA Symphony (Quantitative) 0.2 Ratio (< 0.7 Negative); dsDNA IgG Antibody 2.2 IU/mL (<10 Negative)
[2020-01-09] MEDS: Carvedilol 6.25 MG TAB PO SCH (17:26)
[2020-01-09] MEDS: Amlodipine 5 MG TAB PO SCH (17:26)
[2020-01-09] MEDS ORDERED: cloNIDine 0.1 MG TAB PO PRN (17:48)
--- NOTE | 2020-01-09 17:50 | PDOC.HOSPP ---
- Subjective Encounter Date: 01/09/20 Encounter Time: 13:00 Subjective: Patient seen and examined. No new complaints. No overnight events - Objective Vital Signs & Weight: Vital Signs (12 hours) Temp Pulse Resp BP BP Pulse Ox 01/09/20 17:29 61 156/100 H 01/09/20 15:25 97.7 F 55 L 12 153/90 H 100 01/09/20 12:22 149/70 H 01/09/20 11:17 97.6 F 60 12 163/106 H 100 01/09/20 07:29 98.0 F 66 18 182/118 H 97 01/09/20 07:24 66 182/118 H Weight Weight 130 lb 3.2 oz Most Recent Monitor Data Heart Rate from ECG 64 NIBP 146/100 NIBP BP-Mean 115 Respiration from ECG 17 SpO2 100 I&O: 01/08/20 01/09/20 01/10/20 06:59 06:59 06:59 Intake Total 595 480 Output Total 900 1100 Balance -305 -620 Result Diagrams: 01/09/20 04:00 01/09/20 04:00 Radiology Reviewed by me: Yes (CXR - no infiltrate) EKG Reviewed by me: Yes (Tele SR) Hospitalist ROS - Review of Systems Respiratory: denies: cough, dry, shortness of breath, hemoptysis, SOB with excertion, pleuritic pain, sputum, wheezing, other Cardiovascular: denies: chest pain, palpitations, orthopnea, paroxysmal noc. dyspnea, edema, light headedness, other Gastrointestinal: denies: nausea, vomiting, abdominal pain, diarrhea, constipation, melena, hematochezia, other - Medication Medications: Active Medications Generic Name Dose Route Start Last Admin Trade Name Freq PRN Reason Stop Dose Admin Acetaminophen 650 mg 01/08/20 09:47 01/09/20 09:12 Tylenol PO 650 mg Q6H PRN Administration Headache/Fever or Pain Amlodipine Besylate 5 mg 01/09/20 17:00 01/09/20 17:26 Norvasc PO 5 mg 1700 [facility]IDENCIO Administration Aspirin 325 mg 01/08/20 09:00 01/09/20 09:09 Aspirin PO 325 mg DAILY [facility] Administration Carvedilol 12.5 mg 01/09/20 17:00 01/09/20 17:26 Coreg PO 12.5 mg BID-WM [facility]IDENCIO Administration Furosemide 40 mg 01/08/20 06:00 01/09/20 15:02 Lasix SLOW IVP 40 mg 0600,1400 [facility]IDENCIO Administration Heparin Sodium (Porcine) 5,000 units 01/08/20 09:00 01/09/20 15:03 Heparin SC 5,000 units TID [facility]IDENCIO Administration Hydralazine HCl 20 mg 01/08/20 05:51 01/09/20 11:23 Apresoline SLOW IVP 20 mg Q4H PRN Administration Hypertension Pantoprazole Sodium 40 mg 01/09/20 09:00 01/09/20 10:01 Protonix PO 40 mg DAILY [facility] Administration Sodium Chloride 10 ml 01/08/20 09:00 01/09/20 09:09 Flush - Normal Saline IVF 10 ml Q12HR [facility]ENCIO Administration Tramadol HCl 50 mg 01/08/20 09:47 01/08/20 12:21 Ultram PO 50 mg Q8H PRN Administration Breakthrough Pain - Exam General Appearance: NAD Neck: supple, no JVD Heart: RRR, no gallops, no rubs Respiratory: no wheezes, no ronchi Gastrointestinal: non-tender, non-distended, normal bowel sounds Extremities: no cyanosis, no clubbing Skin: normal turgor Neurological: no new deficit Hosp A/P - Plan DVT proph w/SCDs Hypertensive emergency requiring Cardene drip Acute on chronic diastolic HF RHODA on CKD 5 N/V due to gastritis - nonerosive - s/p EGD Chronic anemia - prob due to renal insuff Abn EKG Hypokalemia PLAN: Cont Coreg Cont IV Lasix Cont Amlodipine Cont Clonidine Cont PPI AM labs
[2020-01-09] MEDS: cloNIDine 0.1 MG TAB PO SCH (20:02)
[2020-01-09] MEDS: traMADol HCl 50 MG TAB PO PRN (22:31)
[2020-01-09] MEDS: Ondansetron PF 4 MG/2 ML Vial IVP PRN (22:34)
[2020-01-10 04:13] LABS: #Basophils 0.1 thou/uL (0.0-0.2); #Eosinphils 0.2 thou/uL (0.0-0.7); #Monocytes 0.4 thou/uL (0.11-0.59); #Neutrophils 4.9 thou/uL (1.40-6.50); %Basophils 0.8 % (0.0-1.0); %Eosinophils 3.8 % (0.0-10.0); %Lymphocytes 15.3 % (21.0-51.0); %Monocytes 5.9 % (0.0-10.0); %Neutrophils 74.3 % (42.0-75.0); Hemoglobin 9.6 g/dL (12.0-16.0); Mean Corpuscular HGB CONC 33.4 g/dL (32.0-36.0); Mean Corpuscular Hemoglobin 30.9 pg (27.0-31.0); Mean Corpuscular Volume 92.3 fL (78.0-98.0); Platelet Count 159 thou/uL (130-400); RBC Distribution Width 14.1 % (11.5-14.5); Red Blood Cell (RBC) Count 3.09 mill/uL (4.20-5.40); White Blood Cell (WBC) Count 6.6 thou/uL (4.8-10.8)
[2020-01-10 04:31] LABS: Albumin 3.2 g/dL (3.5-5.0); Anion Gap 17 mmol/L (10-20); BUN (Urea Nitrogen) 83 mg/dL (7.0-18.7); BUN/Creatinine Ratio 10.64; Calc. Creatinine Clearance 8 mL/min (70-130); Calcium 8.1 mg/dL (7.8-10.44); Carbon Dioxide 22 mmol/L (22-29); Chloride 102 mmol/L (98-107); Estimated GFR-MDRD 7; Glucose 133 mg/dL (70-105); Phosphorus 6.3 mg/dL (2.3-4.7); Sodium 137 mmol/L (136-145)
[2020-01-10] MEDS: Furosemide 40 MG/4 ML VIAL SLOW IVP SCH ×2 (05:36→09:31)
--- NOTE | 2020-01-10 09:22 | PRG ---
DATE OF SERVICE: 01/10/2020 SUBJECTIVE: Ms. Cheatham is a 44-year-old black female, who was initially admitted for labile hypertension. During the initial evaluation, she was noted to have had an acute kidney injury with a significantly elevated creatinine. She was also found to be in CHF. This morning, she is feeling better. She denies any chest pain or shortness of breath. Currently, she is on diuretic regimen. In addition, a cardiac echo was done on January 09, 2020, which showed an EF of 50% to 55%. OBJECTIVE: VITAL SIGNS: Blood pressure 168/101, heart rate 60, respiratory rate 16, temperature 97.5, and O2 saturation 100% on room air. GENERAL: The patient is noted to be awake, alert, comfortable, not in overt distress. SKIN: Adequate turgor. HEENT: She has pinkish conjunctivae. Anicteric sclerae. No neck mass. No carotid bruits. No JVD. CHEST: No deformities. LUNGS: Clear breath sounds. No wheezing. No crackles. HEART: Normal sinus rhythm. No murmur. No gallops. No rubs. ABDOMEN: Globular, soft, nontender. No masses. EXTREMITIES: No edema. No deformities. MEDICATIONS: Of January 10, 2020, were reviewed. LABORATORY DATA: Of January 10, 2020, white count 6.6, hemoglobin 9.6. Sodium 137, potassium 4, chloride 102, carbon dioxide 22, BUN 83, creatinine 7.8, glucose 133, phosphorus is 6.3. ASSESSMENT AND PLAN: 1. Hyperphosphatemia. Start Renvela 800 mg p.o. t.i.d. with meals. 2. Acute kidney injury/chronic renal failure, unimproved renal function. This patient may need dialytic intervention. I had long discussion with her in dialysis. She will think about it. I will do an options visit with the dialysis team whether she might prefer peritoneal or hemodialysis. 3. Labile hypertension. Continue current BP medications. Check renal ultrasound in full with Doppler studies. 4. Congestive heart failure, clinically much improved. She may have underlying diastolic dysfunction. Due to the improved shortness of breath, we will decrease Lasix to once a day dosing. 5. Recheck basic metabolic and CBC in a.m. Job ID: [id number]
[2020-01-10] MEDS: Heparin 5,000 UNITS/ML VIAL SC SCH ×2 (09:30→20:18)
[2020-01-10] MEDS: cloNIDine 0.1 MG TAB PO SCH ×2 (09:30→20:18)
[2020-01-10] MEDS: Sevelamer Carbonate 800 MG TAB PO SCH ×3 (09:31→16:15)
[2020-01-10] MEDS: Aspirin 325 MG TAB PO SCH (09:31)
[2020-01-10] MEDS: Carvedilol 6.25 MG TAB PO SCH ×2 (10:11→16:15)
--- NOTE | 2020-01-10 10:19 | PRG ---
DATE OF SERVICE: 01/10/2020 SUBJECTIVE: Colette Cheatham is still having some elevated blood pressures, mainly in the morning. She is having no respiratory complaints. Vital signs are otherwise stable, but her diastolic is over 100 this morning. Creatinine is up to 7.8, BUN is up to 83, potassium is 4. Ejection fraction is normal on echocardiogram, but she did have evidence of diastolic dysfunction. IMPRESSION: 1. Gastritis leading to persistent nausea and vomiting. Biopsies are pending. 2. Hypertension [id number] with hypertensive pulmonary edema on presentation. 3. Acute on chronic kidney disease, probably getting close to a point where she may need dialysis. She is stable from a pulmonary standpoint. We will sign off. Job ID: [id number]
[2020-01-10] MEDS ORDERED: traMADol HCl 50 MG TAB PO PRN (10:30)
[2020-01-10 11:29] VITALS: BMI 18.6
--- NOTE | 2020-01-10 11:43 | PRG ---
DATE OF SERVICE: 01/10/2020 SUBJECTIVE: Ms. Cheatham has no current complaints. No chest pain or pressure noted. She is contemplating dialysis after discussing with Dr. Osman. OBJECTIVE: VITAL SIGNS: Blood pressure 120/85, pulse 71, temperature 97.5. LUNGS: Clear to auscultation. HEART: Regular rate and rhythm. ABDOMEN: Soft, nontender, and nondistended. EXTREMITIES: No edema. LABORATORY DATA: Recent echo with Doppler shows LVEF 50% to 55% with moderate concentric LVH. IMPRESSION: 1. Malignant hypertension. 2. Chronic kidney disease, stage 5. 3. Noncompliance. RECOMMENDATIONS: Ms. Cheatham does admit to noncompliance for blood pressure in the past. Blood pressure current management by Renal. She is contemplating dialysis. From my standpoint, I have no further recommendations. We will follow peripherally. Job ID: [id number]
--- NOTE | 2020-01-10 12:30 | PDOC.HOSPP ---
- Subjective Encounter Date: 01/10/20 Encounter Time: 11:15 Subjective: Patient seen and examined for RHODA/HTN emergency. Some SOB last night. Denies any CP. No new complaints. No overnight events - Objective Vital Signs & Weight: Vital Signs (12 hours) Temp Pulse Resp BP BP Pulse Ox 01/10/20 11:14 97.5 F L 71 16 128/85 100 01/10/20 07:39 97.5 F L 60 16 168/101 H 100 01/10/20 03:34 97.4 F L 61 20 158/101 H 99 Weight Admit Weight 123 lb 14.397 oz Weight 126 lb Most Recent Monitor Data Heart Rate from ECG 64 NIBP 146/100 NIBP BP-Mean 115 Respiration from ECG 17 SpO2 100 I&O: 01/09/20 01/10/20 01/11/20 06:59 06:59 06:59 Intake Total 595 845 Output Total 900 1650 Balance -305 -805 Result Diagrams: 01/10/20 04:02 01/10/20 04:02 EKG Reviewed by me: Yes (Tele SR) Hospitalist ROS - Review of Systems Cardiovascular: denies: chest pain, palpitations, orthopnea, paroxysmal noc. dyspnea, edema, light headedness, other Gastrointestinal: denies: nausea, vomiting, abdominal pain, diarrhea, constipation, melena, hematochezia, other - Medication Medications: Active Medications Generic Name Dose Route Start Last Admin Trade Name Freq PRN Reason Stop Dose Admin Acetaminophen 650 mg 01/08/20 09:47 01/09/20 09:12 Tylenol PO 650 mg Q6H PRN Administration Headache/Fever or Pain Amlodipine Besylate 5 mg 01/09/20 17:00 01/09/20 17:26 Norvasc PO 5 mg 1700 [facility] Administration Carvedilol 12.5 mg 01/09/20 17:00 01/10/20 10:11 Coreg PO 12.5 mg BID-WM [facility] Administration Clonidine 0.1 mg 01/09/20 21:00 01/10/20 09:30 Catapres PO 0.1 mg BID [facility] Administration Furosemide 40 mg 01/10/20 09:00 01/10/20 09:31 Lasix SLOW IVP 40 mg DAILY [facility] Administration Hydralazine HCl 20 mg 01/08/20 05:51 01/09/20 11:23 Apresoline SLOW IVP 20 mg Q4H PRN Administration Hypertension Ondansetron HCl 4 mg 01/08/20 09:47 01/09/20 22:34 Zofran IVP 4 mg Q6H PRN Administration Nausea/Vomiting Pantoprazole Sodium 40 mg 01/09/20 09:00 01/10/20 09:31 Protonix PO 40 mg DAILY [facility] Administration Sevelamer Carbonate 800 mg 01/10/20 08:00 01/10/20 11:18 Renvela PO 800 mg TID-WM [facility] Administration Sodium Chloride 10 ml 01/08/20 09:00 01/10/20 09:32 Flush - Normal Saline IVF 10 ml Q12HR [facility]IO Administration - Exam General Appearance: NAD Heart: RRR, no gallops, no rubs Respiratory: no wheezes, no rales, no ronchi Gastrointestinal: soft, non-tender, non-distended, normal bowel sounds Extremities: no cyanosis, no edema Neurological: no new deficit Psychiatric: normal affect, A&O x 3 Hosp A/P - Plan DVT proph w/heparin, DVT proph w/SCDs Hypertensive emergency requiring Cardene drip Acute on chronic diastolic HF RHODA on CKD 5 - worsening N/V due to gastritis - nonerosive - s/p EGD Chronic anemia - prob due to renal insuff Abn EKG Hypokalemia PLAN: Cont Coreg/Amlodipine/Clonidine Lasix dose reduced Renal ultrasound today Cont PPI AM labs Cont other meds as above
--- NOTE | 2020-01-10 15:18 | ULT ---
BILATERAL RENAL ULTRASOUND COMPLETE INCLUDING COLOR AND SPECTRAL DOPPLER IMAGING: Date: 01/10/2020 HISTORY: Chronic renal failue FINDINGS: Right kidney measures 8.0 x 3.7 x 3.5 cm. Left kidney measures 8.9 x 4.2 x 4.2 cm. No renal hydronephrosis. Marked increased renal cortical echogenicity, evidence for nonspecific chronic renal disease. Urinary bladder appears unremarkable. No evidence for abnormally increased renal artery velocities. Right renal artery/aortic ratio is 1.0. Left renal artery/aortic ratio is 0.5. Right arcuate resistive index is 0.6. Left arcuate resistive index is 0.7. IMPRESSION: 1. Evidence for nonspecific chronic renal disease. 2. No renal hydronephrosis. 3. No evidence for renal artery stenosis. POS: RRE
[2020-01-10] MEDS: Amlodipine 5 MG TAB PO SCH (16:15)
[2020-01-11 04:22] LABS: #Basophils 0.1 thou/uL (0.0-0.2); #Eosinphils 0.3 thou/uL (0.0-0.7); #Lymphocytes 1.1 thou/uL (1.20-3.40); #Monocytes 0.5 thou/uL (0.11-0.59); #Neutrophils 3.7 thou/uL (1.40-6.50); %Basophils 0.9 % (0.0-1.0); %Eosinophils 5.3 % (0.0-10.0); %Lymphocytes 19.8 % (21.0-51.0); %Monocytes 9.4 % (0.0-10.0); %Neutrophils 64.6 % (42.0-75.0); Hemoglobin 8.6 g/dL (12.0-16.0); Mean Corpuscular HGB CONC 32.8 g/dL (32.0-36.0); Mean Corpuscular Hemoglobin 30.2 pg (27.0-31.0); Platelet Count 157 thou/uL (130-400); Red Blood Cell (RBC) Count 2.85 mill/uL (4.20-5.40); White Blood Cell (WBC) Count 5.7 thou/uL (4.8-10.8)
[2020-01-11 04:40] LABS: Albumin 3.2 g/dL (3.5-5.0); Anion Gap 16 mmol/L (10-20); BUN (Urea Nitrogen) 85 mg/dL (7.0-18.7); BUN/Creatinine Ratio 10.33; Calc. Creatinine Clearance 8 mL/min (70-130); Carbon Dioxide 24 mmol/L (22-29); Chloride 100 mmol/L (98-107); Estimated GFR-MDRD 6; Glucose 85 mg/dL (70-105); Phosphorus 6.3 mg/dL (2.3-4.7); Potassium 3.7 mmol/L (3.5-5.1); Sodium 136 mmol/L (136-145)
[2020-01-11] MEDS: cloNIDine 0.1 MG TAB PO SCH ×2 (07:59→22:23)
[2020-01-11] MEDS: Furosemide 40 MG/4 ML VIAL SLOW IVP SCH (08:00)
[2020-01-11] MEDS: Sevelamer Carbonate 800 MG TAB PO SCH ×2 (08:00→12:42)
[2020-01-11] MEDS: Heparin 5,000 UNITS/ML VIAL SC SCH (08:00)
[2020-01-11] MEDS: Aspirin 81 mg Enteric Coated Tablet PO SCH (08:00)
[2020-01-11] MEDS: Carvedilol 6.25 MG TAB PO SCH (08:00)
[2020-01-11] MEDS ORDERED: Tuberculin PPD 0.1 ML VIAL I-DERMAL SCH (08:30)
--- NOTE | 2020-01-11 08:47 | PRG ---
DATE OF SERVICE: 01/11/2020 SUBJECTIVE: Ms. Cheatham is a 44-year-old black female, who was admitted for labile hypertension/CHF. She was seen by the Renal Service for her acute kidney injury on top of her chronic renal failure. Renal function continues to worsen. I had a long discussion with the patient and she has agreed to proceed with dialytic intervention. She prefers peritoneal dialysis. We will be consulting surgery for placement of a PD catheter. The patient denies any chest pain or shortness of breath. OBJECTIVE: VITAL SIGNS: Blood pressure is 165/104, heart rate is 62, respiratory rate 18, temperature 96.9, O2 saturation 100%. GENERAL: The patient is awake, alert, comfortable, not in overt distress. SKIN: Adequate turgor. HEENT: She has pinkish conjunctivae. Anicteric sclerae. No neck mass. No carotid bruits. No JVD. CHEST: No deformities. LUNGS: Clear breath sounds. No murmur. No gallops. No rubs. ABDOMEN: Globular, soft, nontender. No masses. EXTREMITIES: No edema, no deformities. IMAGING: Renal ultrasound of January 10, 2020, showed marked increased renal cortical echogenicity. No evidence of renal artery stenosis. LABORATORY DATA: Laboratories of January 11, 2020, white count 5.7, hemoglobin 8.6. Sodium 136, potassium 3.7, chloride 100, carbon dioxide 24, BUN 85, creatinine is 8.23, GFR 6 mL/minute, glucose 85, calcium 8, phosphorus is 6.3, albumin 3.2. PTH is 552.6. ASSESSMENT AND PLAN: 1. Secondary hyperparathyroidism-calcitriol 0.25 mcg tablet daily. 2. Hyperphosphatemia. Renvela 800 mg one tablet t.i.d. with meals. 3. Chronic renal failure- most likely from hypertensive nephropathy. Renal function continues to worsen. Consult Surgery for placement of PD catheter. 4. Labile hypertension continue, current blood pressure medications. 5. Agree with current management. Job ID: [id number]
--- NOTE | 2020-01-11 10:14 | ULT ---
EXAM: Vein mapping for dialysis access HISTORY: End-stage renal disease. TECHNIQUE: Multiplanar grayscale and color Doppler images were obtained in a bilateral upper extremit y venous ultrasound. Spectral analysis of the Doppler waveforms of the vessels were performed. FINDINGS: The bilateral internal jugular veins and subclavian veins are patent without evidence of th rombus. Right brachial artery 4.4 mm Right radial artery 2.2 mm Right ulnar artery 2.2 mm Left brachial artery 4.2mm Left radial artery 2.3 mm Left ulnar artery 1.2 mm RIGHT CEPHALIC VEIN in millimeters 3.7 -- Shoulder 3.4 -- Upper arm 3.3 -- Mid upper arm 3.0-- Just proximal to the elbow 2.1 -- Just distal to the elbow 2.7 -- Forearm 1.4 -- Wrist RIGHT BASILIC VEIN in millimeters 4.1 -- Shoulder 4.1 -- Upper arm 5.1 -- Mid upper arm 5.1 with partial compressibility -- Just proximal to the elbow 1.0 -- Just distal to the elbow 1.6 -- Forearm 1.8 -- Wrist LEFT CEPHALIC VEIN in millimeters 1.4 -- Shoulder 1.6 -- Upper arm 1.7 -- Mid upper arm 1.5 -- Just proximal to the elbow 1.5 -- Just distal to the elbow 1.7 -- Forearm 1.6 -- Wrist LEFT BASILIC VEIN in millimeters 3.1 -- Shoulder 3.1 -- Upper arm 2.6 -- Mid upper arm 2.1 -- Just proximal to the elbow 1.7 -- Just distal to the elbow 1.2 -- Forearm 1.3 -- Wrist IMPRESSION: Vein mapping for dialysis access as above
[2020-01-11] MEDS ORDERED: Lidocaine 1% PF 5 ML VIAL ONE (11:03)
[2020-01-11] MEDS ORDERED: EPHEDRINE 25 MG/5 ML SYRINGE ONE (11:03)
[2020-01-11] MEDS ORDERED: PROPOFOL 200 MG/20 ML VIAL ONE (11:03)
[2020-01-11] MEDS ORDERED: Ondansetron PF 4 MG/2 ML Vial ONE (11:03)
[2020-01-11] MEDS ORDERED: PHENYLEPHRINE-NS 100 MCG/ML 10 ML SYRINGE ONE (11:03)
[2020-01-11 11:14] LABS: Hep B Core Total Ab Non-Reactive (NonReactive); Hep B Core Total Index 0.04 S/CO (0-0.79)
[2020-01-11 11:18] LABS: HBSAg Index 0.14 S/CO (0-0.99); Hep B Surf Ag Non-Reactive S/CO (NonReactive)
[2020-01-11 11:19] LABS: HBSAB Concentration 2.53 mIU/mL; Hep B Surf AB Non-Reactive (NonReactive); Hep C IgG Ab Non-Reactive (NonReactive); Hep C Index 0.09 S/CO (0-0.79)
[2020-01-11] MEDS: Calcitriol 0.25 MCG CAP PO SCH (13:12)
[2020-01-11] MEDS ORDERED: Acetaminophen 500 MG TAB PO PRN (13:14)
[2020-01-11] MEDS ORDERED: CEFAZOLIN 2 GM in Premix Bag 1 BAG IVPB SCH (13:15)
--- NOTE | 2020-01-11 13:56 | CON ---
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 Osman. I have been asked to see her regarding placement of a peritoneal dialysis catheter, as she needs to be dialyzed soon. The patient also this hospitalization has been seen by Cardiology and Gastroenterology. The patient was found on upper endoscopy to have diffuse erosive gastritis. She is recommended to stop smoking. H pylori studies have been submitted. Echocardiogram obtained on 01/09/2020 noting 50% to 55% EF, moderate LVH, no significant valvular disease except for mild to moderate MR. Dr. Esquivel and Elissa Baker had been seeing her. They have been seeing her for hypertensive emergency. They prescribed medication to control her hypertension. Dr. Esquivel saw her today and Cardiology signed off as she has no cardiac symptoms. The patient underwent ultrasound vein mapping demonstrating superior veins in her left. She had right when I was consulted, her nurse removed. Since Dr. Osman has talked to her this morning, the patient has talked to her family and she has decided she does not want to do PD at this time. I have explained hemodialysis and peritoneal dialysis. I have talked to Dr. Osmna by telephone and returned to talk to the patient again, spending an hour or more with the patient regarding these issues. Currently, the patient was told that if she decides she wants to do peritoneal dialysis later, she could. Plan at this time is place a hemodialysis catheter and right arm fistula and a central line. She understands risks and benefits of procedure and consents. She understands she should not allow Emergency Room or nursing to place antecubital IVs. She should avoid a phlebotomy of antecubital veins. ALLERGIES: NONE SOCIAL HISTORY: Tobacco, one pack per day. Alcohol, occasionally. MEDICATIONS: Outpatient; 1. Losartan. 2. Atorvastatin. Inpatient, she has been placed on; 1. Tramadol. 2. Sevelamer. 3. Clonidine. 4. Carvedilol. 5. Amlodipine. PAST SURGICAL HISTORY: Urolithiasis, urinary stenting, bilateral tubal ligation. 3, para 3. PAST MEDICAL HISTORY: Hypertension. REVIEW OF SYSTEMS: Ten-point noncontributory. No history of colonoscopy. PHYSICAL EXAMINATION: VITAL SIGNS: Height 5 foot 9 inches, 124 pounds, 18 BMI. Temperature 97.6, pulse 57, and blood pressure 159/104. HEAD, EARS, EYES, NOSE, AND THROAT: Unremarkable.. NEUROLOGICAL: Intact. LUNGS: Clear to auscultation. CARDIAC: Regular rate and rhythm without murmur or gallop. ABDOMEN: Soft and nontender. Umbilical ring in place. Palpable radial pulses. Scar from right antecubital IV, which has been removed. EXTREMITIES: No ankle edema. LABORATORY DATA: White count 5, hemoglobin 8.6. Sodium 136, BUN 85, creatinine 8.23, GFR 6. ASSESSMENT AND PLAN: 1. End-stage renal disease. The patient does not desire peritoneal dialysis at this time. We will plan placement of right arm primary fistula and a hemodialysis catheter and a central line. She understands risks, benefits, and consents. They will initiate dialysis tomorrow. 2. Tobacco abuse. 3. Alcohol use. Job ID: [id number]
--- NOTE | 2020-01-11 15:43 | PDOC.HOSPP ---
- Subjective Encounter Date: 01/11/20 Encounter Time: 12:00 Subjective: Patient seen and examined for RHODA/HTN. Feels weak. Reports some blood in urine. No other complaints. No overnight events - Objective Vital Signs & Weight: Vital Signs (12 hours) Temp Pulse Resp BP BP Pulse Ox 01/11/20 12:00 97.6 F 57 L 15 159/104 H 100 01/11/20 08:00 165/104 H 01/11/20 07:59 165/104 H 01/11/20 07:54 96.9 F L 62 18 165/104 H 100 01/11/20 06:35 100 01/11/20 04:00 98.3 F 59 L 14 151/87 H 100 Weight Admit Weight 123 lb 14.397 oz Weight 124 lb 11.2 oz Most Recent Monitor Data Heart Rate from ECG 64 NIBP 146/100 NIBP BP-Mean 115 Respiration from ECG 17 SpO2 100 I&O: 01/10/20 01/11/20 01/12/20 06:59 06:59 06:59 Intake Total 845 940 Output Total 1650 850 Balance -805 90 Result Diagrams: 01/11/20 04:07 01/11/20 04:07 EKG Reviewed by me: Yes (Tele SR) Hospitalist ROS - Review of Systems Cardiovascular: denies: chest pain, palpitations, orthopnea, paroxysmal noc. dyspnea, edema, light headedness, other Gastrointestinal: denies: nausea, vomiting, abdominal pain, diarrhea, constipation, melena, hematochezia, other - Medication Medications: Active Medications Generic Name Dose Route Start Last Admin Trade Name Darek PRN Reason Stop Dose Admin Amlodipine Besylate 5 mg 01/09/20 17:00 01/10/20 16:15 Norvasc PO 01/11/20 23:59 5 mg 1700 FIDENCIO Administration Aspirin 81 mg 01/11/20 09:00 01/11/20 08:00 Ecotrin PO 81 mg DAILY FIDENCIO Administration Calcitriol 0.25 mcg 01/11/20 09:00 01/11/20 13:12 Rocaltrol PO 0.25 mcg DAILY FIDENCIO Administration Carvedilol 12.5 mg 01/09/20 17:00 01/11/20 08:00 Coreg PO 12.5 mg BID- FIDENCIO Administration Clonidine 0.1 mg 01/09/20 21:00 01/11/20 07:59 Catapres PO 0.1 mg BID FIDENCIO Administration Furosemide 40 mg 01/10/20 09:00 01/11/20 08:00 Lasix SLOW IVP 40 mg DAILY FIDENCIO Administration Heparin Sodium (Porcine) 5,000 units 01/10/20 21:00 01/11/20 08:00 Heparin SC 5,000 units BID FIDENCIO Administration Hydralazine HCl 20 mg 01/08/20 05:51 01/09/20 11:23 Apresoline SLOW IVP 20 mg Q4H PRN Administration Hypertension Ondansetron HCl 4 mg 01/08/20 09:47 01/09/20 22:34 Zofran IVP 4 mg Q6H PRN Administration Nausea/Vomiting Pantoprazole Sodium 40 mg 01/09/20 09:00 01/11/20 08:00 Protonix PO 40 mg DAILY FIDENCIO Administration Sevelamer Carbonate 800 mg 01/10/20 08:00 01/11/20 12:42 Renvela PO Not Given TID-WM FIDENCIO Sodium Chloride 10 ml 01/08/20 09:00 01/11/20 08:01 Flush - Normal Saline IVF 10 ml Q12HR FIDENCIO Administration Tuberculin PPD 0.1 ml 01/11/20 08:30 01/11/20 13:12 Tuberculin Ppd I-DERMAL 01/14/20 08:31 0.1 ml ONE FIDENCIO Administration - Exam General Appearance: NAD Heart: RRR, no gallops Respiratory: no wheezes, no ronchi Gastrointestinal: non-tender, non-distended, normal bowel sounds Extremities: no cyanosis, no clubbing Hosp A/P - Plan DVT proph w/SCDs Hypertensive emergency requiring Cardene drip Acute on chronic diastolic HF RHODA on CKD 5 - worsening N/V due to gastritis - nonerosive - s/p EGD Chronic anemia - prob due to renal insuff Abn EKG Hypokalemia Gross hematuria PLAN: DC SQ Heparin due to hematuria Monitor HH Cont Coreg Increase Amlodipine Cont Clonidine IV Lasix per Nephrology Cont other meds as above
[2020-01-11] MEDS ORDERED: traMADol HCl 50 MG TAB PO PRN (17:05)
[2020-01-11] MEDS ORDERED: Protamine Sulfate 50 MG/5 ML VIAL ONE (17:07)
[2020-01-11] MEDS ORDERED: Lidocaine 2% PF 5 ML VIAL ONE (17:07)
[2020-01-11] MEDS ORDERED: Heparin 5,000 UNITS/ML VIAL ONE (17:07)
[2020-01-11] MEDS ORDERED: Sodium Chloride 0.9% 40 ML ONE (17:07)
[2020-01-11] MEDS ORDERED: Bupivacaine PF 0.5% 30 ML VIAL ONE (17:07)
[2020-01-11] MEDS ORDERED: Heparin 10,000 UNITS/1 ML VIAL ONE (17:07)
[2020-01-11] MEDS ORDERED: Lidocaine 2% Jelly 5 ML TUBE ONE (17:08)
[2020-01-11] MEDS ORDERED: Fentanyl 100 MCG/2 ML VIAL ONE (17:08)
[2020-01-11] MEDS ORDERED: hydrALAZINE 20 MG/ML VIAL ONE (19:29)
--- NOTE | 2020-01-11 19:42 | RAD ---
CHEST ONE VIEW: 01/11/20 INDICATION: History of central line placement. COMPARISON: Prior exam dated 01/08/20. FINDINGS: There is persistent cardiomegaly with pulmonary vascular congestion. There is a new right IJ dialysis catheter and a new left IJ central venous catheter. The tip of the catheters are seen within the reg ion of the SVC. No pneumothorax is evident. Osseous structures are unchanged. IMPRESSION: 1. Stable cardiomegaly with pulmonary vascular congestion. 2. New central line. POS: BH
[2020-01-11] MEDS: Ondansetron PF 4 MG/2 ML Vial IVP PRN (21:21)
[2020-01-12] MEDS: Amlodipine 5 MG TAB PO SCH ×3 (00:11→20:52)
[2020-01-12] MEDS: Carvedilol 6.25 MG TAB PO SCH ×3 (00:11→17:52)
[2020-01-12] MEDS: Sevelamer Carbonate 800 MG TAB PO SCH ×4 (00:12→17:52)
--- NOTE | 2020-01-12 02:25 | OP ---
DATE OF PROCEDURE: 01/11/2020 PREOPERATIVE DIAGNOSIS: End-stage renal disease. POSTOPERATIVE DIAGNOSIS: End-stage renal disease. PROCEDURES PERFORMED: Right internal jugular cuffed tunneled hemodialysis catheter, AngioDynamics pre-curved. Left internal jugular triple-lumen catheter, right arm primary fistula antecubital vein to the proximal radial artery, outflow cephalic vein primarily secondary to outflow basilic vein. Ligation of lateral collateral to the cephalic vein. ANESTHESIA: General, local 0.5% Marcaine 30 mL mixed with 1% Xylocaine with epinephrine 20 mL. Ultrasound and fluoroscopy used for line placement. DESCRIPTION OF PROCEDURE: The patient was taken to the operating room, where under general anesthesia, neck, chest, and right upper extremity were prepared with ChloraPrep and draped in routine fashion. Local anesthetic was infiltrated in the skin and subcutaneous tissue about the operative sites. Using ultrasound guidance, the right and left internal jugular veins were cannulated with trocar catheter. J-wire was threaded. Trocar catheter was removed. Skin site enlarged sharply. Stab incision was made over the right chest. Seldinger technique was used to place triple-lumen catheter in the left IJ, secured with interrupted 3-0 nylon suture and aspirated each port of blood, flushed with saline solution. A CHG dressing was applied. On the right side, the tunneling device was used to tunnel the pre-curved AngioDynamics cuffed tunneled dialysis catheter between the 2 incisions, placed the fabric cuff beneath the skin exit site over the chest and secured with 3-0 nylon sutures, and sterile dressing was applied. Small and medium size dilators were placed over the J-wire and removed. Dilator and Peel-Away sheath were placed over the J-wire into the internal jugular vein and superior vena cava. Dilator and J-wire were removed. Catheter was placed with the Peel-Away sheath. Peel-Away sheath was removed. Fluoroscopically, catheter was noted to be in good position. Platysma was approximated with 4-0 Monocryl, skin with subdermal 4-0 Monocryl, and Lignite glue and sterile dressings applied. Each port aspirated of blood, flushed with saline solution and heparinized saline solution with 1000 units of heparin per mL, indicating volume of the port. Attention was then turned to the right upper arm. A longitudinal incision was made below the antecubital fossa and carried down through skin and subcutaneous tissue, identifying the antecubital vein, brachial artery dissected free. The patient was given 6000 units of heparin intravenously. Proximal radial artery identified. It was good quality. No arterial sclerotic disease noted. Perforating branch was not present, communicating branch to the basilic vein preserved. There was secondary vein that was divided between silk ties and the cephalic vein proximal forearm stump on the hand side ligated with 3-0 silk tie, divided, spatulated, interrogated with coronary dilators, passing coronary dilators from 2 mm to 4 mm coronary dilator out the cephalic vein outflow without restriction. It was then flushed with heparinized saline solution. Proximal radial artery was clamped proximally and distally. Longitudinal arteriotomy was made sharply, elongated with the Ventura scissors for 2 cm anastomosis, appropriately spatulating the cephalic vein and anastomosis completed with continuous suture of 6-0 Prolene, releasing the clamps, noted good Doppler signal in the cephalic vein outflow. There was a branch laterally of the cephalic vein in the distal third upper arm, where an incision was made. It was ligated with 3-0 silk tie. Subcutaneous tissue was approximated with 3-0 Monocryl, skin with subdermal 4-0 Monocryl, noted good hemostasis and administering 25 mg of protamine intravenously by Anesthesia. The cephalic vein stood up well in the upper arm. Job ID: [id number]
[2020-01-12 04:13] LABS: Hemoglobin 8.9 g/dL (12.0-16.0); Platelet Count 172 thou/uL (130-400)
[2020-01-12 04:26] LABS: Albumin 3.3 g/dL (3.5-5.0); Anion Gap 17 mmol/L (10-20); BUN (Urea Nitrogen) 81 mg/dL (7.0-18.7); BUN/Creatinine Ratio 9.69; Calc. Creatinine Clearance 8 mL/min (70-130); Calcium 8.3 mg/dL (7.8-10.44); Carbon Dioxide 23 mmol/L (22-29); Chloride 99 mmol/L (98-107); Estimated GFR-MDRD 6; Glucose 129 mg/dL (70-105); Phosphorus 6.7 mg/dL (2.3-4.7); Potassium 3.9 mmol/L (3.5-5.1); Sodium 135 mmol/L (136-145)
[2020-01-12] MEDS ORDERED: EPOETIN ALFA-EPBX (ESRD) 4,000 UNIT/ML VIAL SC SCH (08:15)
--- NOTE | 2020-01-12 08:59 | PRG ---
DATE OF SERVICE: 01/12/2020 SERVICE: Renal Medicine. SUBJECTIVE: Ms. Cheatham is a 44-year-old black female, who was initially admitted for labile hypertension. She was also noted to have an acute kidney injury. However, I did review the renal ultrasound, which showed chronicity as well as increased echogenicity on renal ultrasound suggesting that the renal failure may be chronic in nature. Yesterday, she has changed her mind from pursuing peritoneal dialysis at the present time. A cuffed hemodialysis catheter and AV fistula had been placed. The patient voices no new complaints today except for postop pain. OBJECTIVE: VITAL SIGNS: Blood pressure 165/92, heart rate 62, respiratory rate 18, temperature 98.5, and O2 saturation 100%. GENERAL: The patient is awake, alert, comfortable, not in overt distress. SKIN: Adequate turgor. HEENT: Slightly pale conjunctivae. Anicteric sclerae. No neck mass. No carotid bruits. No JVD. CHEST: No deformities. LUNGS: Clear breath sounds. HEART: Normal sinus rhythm. No murmur. No gallops. No rubs. ABDOMEN: Globular, soft, nontender. No masses. EXTREMITIES: No edema. No deformities. MEDICATIONS: Medications of January 12, 2020, were reviewed. LABORATORY DATA: Of January 12, 2020; hemoglobin 8.9. Sodium 135, potassium 3.9, chloride 99, carbon dioxide 23, BUN 81, creatinine 8.36, glucose 129, calcium is 8.3, phosphorus is 6.7, albumin 3.3, and PTH 552. ASSESSMENT AND PLAN: 1. Hyperphosphatemia-the patient has been started on sevelamer 800 mg p.o. t.i.d. 2. Secondary hyperparathyroidism, currently on calcitriol 0.25 mcg tablet daily. 3. Anemia. We will start Epogen 7500 units subcu every week. In addition, iron tablets will also be started. 4. Labile hypertension, stable. Continue current BP medications. 5. Chronic renal failure/end-stage renal disease. We will initiate hemodialysis. We will dialyze for 1 hour and then 2 hours and subsequently increase dialysis time until it becomes a total of 4 hours, then we will convert her on Friday, Friday, and Friday. Consider outpatient dialysis placement. Job ID: [id number]
[2020-01-12] MEDS: Calcitriol 0.25 MCG CAP PO SCH (11:57)
[2020-01-12] MEDS: cloNIDine 0.1 MG TAB PO SCH ×2 (12:01→20:53)
[2020-01-12] MEDS: Aspirin 81 mg Enteric Coated Tablet PO SCH (12:02)
[2020-01-12] MEDS ORDERED: Heparin 10,000 UNITS/ 10 ML VIAL ONE (12:45)
[2020-01-12 16:36] LABS: Cytoplasmic (C-ANCA) <1:20 titer (Neg:<1:20); Myeloperoxidase AutoAbs <9.0 U/mL (0.0-9.0); Perinuclear (P-ANCA) <1:20 titer (Neg:<1:20); Proteinase-3 AutoAbs Less than 3.5 U/mL (0.0-3.5)
[2020-01-12] MEDS: Ferrous Sulfate 325 MG TAB PO SCH (17:53)
--- NOTE | 2020-01-12 18:55 | PRG ---
DATE OF SERVICE: 01/12/2020 Colette Cheatham is doing well today. She has to initiate dialysis. Her dialysis catheter is working well. Her right arm fistula has a good thrill and bruit. Her right upper arm cephalic vein fistula is well distended. She has 18 BMI, height 5 feet and 9 inches, weight 126 pounds. At this point, we would recommend exercising in the right arm and using her right arm and hand without restrictions. She should follow up in my office in 3 weeks. I suspect they will be able to begin accessing her fistula in the next 4 to 6 weeks. I will see her as needed in this hospitalization. Job ID: [id number]
--- NOTE | 2020-01-12 23:51 | PDOC.HOSPP ---
- Subjective Encounter Date: 01/12/20 Encounter Time: 14:00 Subjective: Patient seen and examined for HTN crisis/RHODA. No N/V. Tolerated 1 hr hemodialysis. No new complaints. No overnight events - Objective Vital Signs & Weight: Vital Signs (12 hours) Temp Pulse Resp BP BP Pulse Ox 01/12/20 20:53 137/81 01/12/20 20:52 70 137/81 01/12/20 19:25 99.3 F 70 18 137/81 100 01/12/20 17:52 138/86 01/12/20 15:30 97.8 F 63 16 152/93 H 100 01/12/20 14:56 147/86 H 01/12/20 11:56 65 01/12/20 11:53 98 F 65 18 176/103 H 100 Weight Admit Weight 123 lb 14.397 oz Weight 126 lb 8 oz Most Recent Monitor Data Heart Rate from ECG 64 NIBP 146/100 NIBP BP-Mean 115 Respiration from ECG 17 SpO2 100 I&O: 01/11/20 01/12/20 01/13/20 06:59 06:59 06:59 Intake Total 940 240 720 Output Total 850 450 Balance 90 -210 720 Result Diagrams: 01/13/20 04:45 01/13/20 04:45 EKG Reviewed by me: Yes (Tele SR) Hospitalist ROS - Review of Systems Respiratory: denies: cough, dry, shortness of breath, hemoptysis, SOB with excertion, pleuritic pain, sputum, wheezing, other Cardiovascular: denies: chest pain, palpitations, orthopnea, paroxysmal noc. dyspnea, edema, light headedness, other Gastrointestinal: denies: nausea, vomiting, abdominal pain, diarrhea, constipation, melena, hematochezia, other - Medication Medications: Active Medications Generic Name Dose Route Start Last Admin Trade Name Freq PRN Reason Stop Dose Admin Amlodipine Besylate 5 mg 01/12/20 09:00 01/12/20 20:52 Norvasc PO 5 mg BID FIDENCIO Administration Aspirin 81 mg 01/11/20 09:00 01/12/20 12:02 Ecotrin PO 81 mg DAILY FIDENCIO Administration Calcitriol 0.25 mcg 01/11/20 09:00 01/12/20 11:57 Rocaltrol PO 0.25 mcg DAILY FIDENCIO Administration Carvedilol 12.5 mg 01/09/20 17:00 01/12/20 17:52 Coreg PO 12.5 mg BID-WM FIDENCIO Administration Clonidine 0.1 mg 01/09/20 21:00 01/12/20 20:53 Catapres PO 0.1 mg BID FIDENCIO Administration Epoetin Sandor-epbx 7,500 unit 01/12/20 08:15 01/12/20 12:06 Retacrit SC 7,500 unit Q7D FIDENCIO Administration Ferrous Sulfate 325 mg 01/12/20 17:00 01/12/20 17:53 Feosol PO 325 mg BID-WM FIDENCIO Administration Hydralazine HCl 20 mg 01/08/20 05:51 01/09/20 11:23 Apresoline SLOW IVP 20 mg Q4H PRN Administration Hypertension Ondansetron HCl 4 mg 01/08/20 09:47 01/11/20 21:21 Zofran IVP 4 mg Q6H PRN Administration Nausea/Vomiting Pantoprazole Sodium 40 mg 01/09/20 09:00 01/12/20 11:56 Protonix PO 40 mg DAILY FIDENCIO Administration Sevelamer Carbonate 800 mg 01/10/20 08:00 01/12/20 17:52 Renvela PO 800 mg TID-WM FIDENCIO Administration Sodium Chloride 10 ml 01/08/20 09:00 01/12/20 20:53 Flush - Normal Saline IVF 10 ml Q12HR FIDENCIO Administration Tramadol HCl 50 mg 01/11/20 17:05 01/12/20 14:04 Ultram PO 50 mg Q6H PRN Administration Moderate Pain (4-6) Tuberculin PPD 0.1 ml 01/11/20 08:30 01/11/20 13:12 Tuberculin Ppd I-DERMAL 01/14/20 08:31 0.1 ml ONE FIDENCIO Administration - Exam General Appearance: NAD Heart: RRR, no gallops Respiratory: no wheezes, no ronchi Gastrointestinal: soft, non-tender, non-distended Extremities: no cyanosis Neurological: no new deficit Hosp A/P - Plan DVT proph w/SCDs Hypertensive emergency s/p Cardene drip Acute on chronic diastolic HF RHODA on CKD 5 - worsening N/V due to gastritis - nonerosive - s/p EGD Chronic anemia - prob due to renal insuff Abn EKG Hypokalemia Gross hematuria PLAN: Cont Coreg/Amlodipine/Clonidine Started on dialysis Outpt dialysis setup AM labs Cont other meds as above
[2020-01-13 04:59] LABS: Hemoglobin 8.4 g/dL (12.0-16.0); Platelet Count 163 thou/uL (130-400)
[2020-01-13 05:16] LABS: Anion Gap 14 mmol/L (10-20); BUN (Urea Nitrogen) 68 mg/dL (7.0-18.7); Calc. Creatinine Clearance 9 mL/min (70-130); Calcium 8.6 mg/dL (7.8-10.44); Carbon Dioxide 26 mmol/L (22-29); Chloride 98 mmol/L (98-107); Estimated GFR-MDRD 7; Glucose 96 mg/dL (70-105); Sodium 134 mmol/L (136-145)
[2020-01-13] MEDS: Carvedilol 6.25 MG TAB PO SCH ×2 (07:45→16:18)
[2020-01-13] MEDS: Ferrous Sulfate 325 MG TAB PO SCH ×2 (07:45→16:18)
[2020-01-13] MEDS: cloNIDine 0.1 MG TAB PO SCH ×2 (07:45→20:54)
[2020-01-13] MEDS: Amlodipine 5 MG TAB PO SCH ×2 (07:45→20:55)
[2020-01-13] MEDS: Aspirin 81 mg Enteric Coated Tablet PO SCH (07:45)
[2020-01-13] MEDS: Sevelamer Carbonate 800 MG TAB PO SCH ×3 (07:46→16:18)
[2020-01-13] MEDS: Calcitriol 0.25 MCG CAP PO SCH (07:46)
[2020-01-13] MEDS: Losartan 25 MG TAB PO SCH (08:33)
--- NOTE | 2020-01-13 08:46 | PRG ---
DATE OF SERVICE: 01/13/2020 SERVICE: Renal Medicine. SUBJECTIVE: Ms. Cheatham is a 44-year-old black female, who was admitted for labile hypertension and an acute kidney injury. After evaluation of her renal function, she was found to have ESRD. Hemodialysis has been initiated with this patient. She also had proteinuria and hematuria in the urinalysis. She was screened for lupus as well as for vasculitis. The tests were all reported as negative. She most likely has hypertensive nephropathy. She underwent hemodialysis yesterday. She initially was considered peritoneal dialysis, but changed her mind. She is now on hemodialysis. She voices no new complaints today. OBJECTIVE: VITAL SIGNS: Blood pressure 158/93, heart rate 68, respiratory rate 16, temperature 98.7, O2 saturation 99% room air. GENERAL: The patient is awake, alert, comfortable, not in distress. SKIN: Adequate turgor. HEENT: She has slightly pale conjunctivae. Anicteric sclerae. No neck mass. No carotid bruits. No JVD. CHEST: No deformities. LUNGS: Clear breath sounds. No wheezing. No crackles. HEART: Normal sinus rhythm. No murmur. No gallops. No rubs. ABDOMEN: Globular, soft, nontender. No masses. EXTREMITIES: No edema. No deformities. MEDICATIONS: Medications of January 13, 2020, were reviewed. LABORATORY DATA: Laboratories of January 13, 2020; hemoglobin 8.4, sodium 134, potassium 4, chloride 98, carbon dioxide 26, BUN 68, creatinine 7.55, calcium 8.6, glucose 96. ASSESSMENT AND PLAN: 1. Chronic renal failure/end-stage renal disease - Most likely from hypertensive nephropathy. Continue current supportive care. Continue daily hemodialysis. Fluid removal as tolerated. 2. Labile hypertension. We will add losartan 25 mg tablet q.a.m. 3. Anemia, currently on iron supplementation and Epogen. 4. Renal osteodystrophy - The patient is now on calcitriol and sevelamer. 5. Awaiting outpatient dialysis placement. Job ID: [id number]
[2020-01-13] MEDS ORDERED: Heparin 10,000 UNITS/ 10 ML VIAL ONE (12:47)
--- NOTE | 2020-01-13 15:07 | PDOC.HOSPP ---
- Subjective Encounter Date: 01/13/20 Encounter Time: 11:00 Subjective: Patient seen and examined for RHODA/HTN. No new complaints. No overnight events - Objective Vital Signs & Weight: Vital Signs (12 hours) Temp Pulse Resp BP Pulse Ox 01/13/20 11:37 58 L 20 132/80 100 01/13/20 08:35 99 01/13/20 07:42 98.7 F 68 16 158/93 H 99 01/13/20 04:28 98.4 F 68 14 144/93 H 100 Weight Admit Weight 123 lb 14.397 oz Weight 126 lb 8 oz Most Recent Monitor Data Heart Rate from ECG 64 NIBP 146/100 NIBP BP-Mean 115 Respiration from ECG 17 SpO2 100 I&O: 01/12/20 01/13/20 01/14/20 06:59 06:59 06:59 Intake Total 240 870 Output Total 450 Balance -210 870 Result Diagrams: 01/13/20 04:45 01/13/20 04:45 EKG Reviewed by me: Yes (Tele SR) Hospitalist ROS - Review of Systems Respiratory: denies: cough, dry, shortness of breath, hemoptysis, SOB with excertion, pleuritic pain, sputum, wheezing, other Cardiovascular: denies: chest pain, palpitations, orthopnea, paroxysmal noc. dyspnea, edema, light headedness, other - Medication Medications: Active Medications Generic Name Dose Route Start Last Admin Trade Name Freq PRN Reason Stop Dose Admin Amlodipine Besylate 5 mg 01/12/20 09:00 01/13/20 07:45 Norvasc PO 5 mg BID FIDENCIO Administration Aspirin 81 mg 01/11/20 09:00 01/13/20 07:45 Ecotrin PO 81 mg DAILY FIDENCIO Administration Calcitriol 0.25 mcg 01/11/20 09:00 01/13/20 07:46 Rocaltrol PO 0.25 mcg DAILY FIDENCIO Administration Carvedilol 12.5 mg 01/09/20 17:00 01/13/20 07:45 Coreg PO 12.5 mg BID-WM FIDENCIO Administration Clonidine 0.1 mg 01/09/20 21:00 01/13/20 07:45 Catapres PO 0.1 mg BID FIDENCIO Administration Epoetin Sandor-epbx 7,500 unit 01/12/20 08:15 01/12/20 12:06 Retacrit SC 7,500 unit Q7D FIDENCIO Administration Ferrous Sulfate 325 mg 01/12/20 17:00 01/13/20 07:45 Feosol PO 325 mg BID-WM FIDENCIO Administration Hydralazine HCl 20 mg 01/08/20 05:51 01/09/20 11:23 Apresoline SLOW IVP 20 mg Q4H PRN Administration Hypertension Losartan Potassium 25 mg 01/13/20 09:00 01/13/20 08:33 Cozaar PO 25 mg DAILY FIDENCIO Administration Ondansetron HCl 4 mg 01/08/20 09:47 01/11/20 21:21 Zofran IVP 4 mg Q6H PRN Administration Nausea/Vomiting Pantoprazole Sodium 40 mg 01/09/20 09:00 01/13/20 07:45 Protonix PO 40 mg DAILY FIDENCIO Administration Sevelamer Carbonate 800 mg 01/10/20 08:00 01/13/20 11:50 Renvela PO 800 mg TID-WM FIDENCIO Administration Sodium Chloride 10 ml 01/08/20 09:00 01/13/20 07:46 Flush - Normal Saline IVF 10 ml Q12HR FIDENCIO Administration Tramadol HCl 50 mg 01/11/20 17:05 01/12/20 14:04 Ultram PO 50 mg Q6H PRN Administration Moderate Pain (4-6) Tuberculin PPD 0.1 ml 01/11/20 08:30 01/11/20 13:12 Tuberculin Ppd I-DERMAL 01/14/20 08:31 0.1 ml ONE FIDENCIO Administration - Exam General Appearance: NAD Heart: RRR, no gallops Respiratory: no wheezes, no ronchi Gastrointestinal: non-tender, normal bowel sounds, no guarding, no rigidity Neurological: no new deficit Hosp A/P - Plan DVT proph w/SCDs Hypertensive emergency s/p Cardene drip Acute on chronic diastolic HF RHODA on CKD 5 - worsening N/V due to gastritis - nonerosive - s/p EGD Chronic anemia - prob due to renal insuff Abn EKG Hypokalemia Gross hematuria PLAN: Cont Coreg Cont Amlodipine Cont Clonidine Cont dialysis per Nephrology Await outpt dialysis setup Cont other meds as above Renal diet AM labs Transfer to [facility]
[2020-01-14 06:04] LABS: #Basophils 0.1 thou/uL (0.0-0.2); #Eosinphils 0.2 thou/uL (0.0-0.7); #Lymphocytes 1.4 thou/uL (1.20-3.40); #Monocytes 0.6 thou/uL (0.11-0.59); #Neutrophils 4.1 thou/uL (1.40-6.50); %Basophils 1.3 % (0.0-1.0); %Eosinophils 3.3 % (0.0-10.0); %Lymphocytes 21.7 % (21.0-51.0); %Monocytes 8.9 % (0.0-10.0); %Neutrophils 64.7 % (42.0-75.0); Hemoglobin 9.2 g/dL (12.0-16.0); Mean Corpuscular HGB CONC 32.5 g/dL (32.0-36.0); Mean Corpuscular Volume 92.1 fL (78.0-98.0); Mean Platelet Volume 10.2 fL (7.4-10.4); Platelet Count 182 thou/uL (130-400); RBC Distribution Width 13.7 % (11.5-14.5); Red Blood Cell (RBC) Count 3.06 mill/uL (4.20-5.40); White Blood Cell (WBC) Count 6.3 thou/uL (4.8-10.8)
[2020-01-14 06:39] LABS: Anion Gap 10 mmol/L (10-20); BUN (Urea Nitrogen) 42 mg/dL (7.0-18.7); Calc. Creatinine Clearance 11 mL/min (70-130); Calcium 8.4 mg/dL (7.8-10.44); Carbon Dioxide 29 mmol/L (22-29); Chloride 100 mmol/L (98-107); Estimated GFR-MDRD 10; Glucose 82 mg/dL (70-105); Potassium 4.3 mmol/L (3.5-5.1); Sodium 135 mmol/L (136-145)
--- NOTE | 2020-01-14 09:23 | PRG ---
DATE OF SERVICE: 01/14/2020 SUBJECTIVE: Ms. Cheatham is a 44-year-old black female, who came in for labile hypertension and acute kidney injury. At that time, we felt that this was acute, but further review of her records and lab suggested this is chronic renal failure. She is now undergoing hemodialysis. She voices no new complaints. OBJECTIVE: VITAL SIGNS: Blood pressure 132/84, heart rate 60, respiratory rate 16, temperature 97.9, and pulse ox 100%. GENERAL: Awake, alert, and comfortable, not in distress. SKIN: Adequate turgor. HEENT: Slightly pale conjunctivae. Anicteric sclerae. NECK: No neck mass. No carotid bruits. No JVD. CHEST: No deformities. LUNGS: Clear breath sounds. No wheezing. No crackles. HEART: Normal sinus rhythm. No murmur. No gallops. No rubs. ABDOMEN: Globular, soft, and nontender. No masses. EXTREMITIES: No edema. No deformities. MEDICATIONS: Medications of January 14, 2020, were reviewed. LABORATORY DATA: Laboratories of January 14, 2020; white count 6.3, hemoglobin 9.2. Sodium 135, potassium 4.3, chloride 100, carbon dioxide 29, BUN 42, creatinine 5.6, and calcium 8.4. ASSESSMENT AND PLAN: 1. Chronic renal failure/end-stage renal disease. Continue daily hemodialysis with this patient. After a 4-hour treatment in the next few days, we will place the patient on 3 times a week hemodialysis. We are awaiting for outpatient dialysis placement. 2. Anemia, continuing weekly Epogen. 3. Hypertension, much improved with addition of losartan. 4. Agree with current management. Job ID: [id number]
[2020-01-14] MEDS ORDERED: Heparin 10,000 UNITS/ 10 ML VIAL ONE (10:02)
[2020-01-14] MEDS: Amlodipine 5 MG TAB PO SCH ×2 (11:36→20:18)
[2020-01-14] MEDS: cloNIDine 0.1 MG TAB PO SCH ×2 (11:36→20:17)
[2020-01-14] MEDS: Aspirin 81 mg Enteric Coated Tablet PO SCH (11:36)
[2020-01-14] MEDS: Losartan 25 MG TAB PO SCH (11:36)
[2020-01-14] MEDS: Carvedilol 6.25 MG TAB PO SCH ×2 (11:37→17:00)
[2020-01-14] MEDS: Ferrous Sulfate 325 MG TAB PO SCH ×2 (11:37→17:00)
[2020-01-14] MEDS: Sevelamer Carbonate 800 MG TAB PO SCH ×3 (11:37→17:00)
[2020-01-14] MEDS: Calcitriol 0.25 MCG CAP PO SCH (11:38)
--- NOTE | 2020-01-14 13:34 | PDOC.HOSPP ---
- Subjective Encounter Date: 01/14/20 Encounter Time: 12:30 Subjective: Patient seen and examined for RHODA/HTN. No new complaints. No overnight events - Objective Vital Signs & Weight: Vital Signs (12 hours) Temp Pulse Resp BP Pulse Ox 01/14/20 11:45 97.7 F 60 16 132/75 100 01/14/20 11:36 57 L 01/14/20 10:39 97.6 F 57 L 16 160/89 H 100 01/14/20 08:00 100 01/14/20 03:37 97.9 F 60 16 132/84 100 Weight Admit Weight 123 lb 14.397 oz Weight 125 lb 3.2 oz Most Recent Monitor Data Heart Rate from ECG 64 NIBP 146/100 NIBP BP-Mean 115 Respiration from ECG 17 SpO2 100 I&O: 01/13/20 01/14/20 01/15/20 06:59 06:59 06:59 Intake Total 870 1500 180 Balance 870 1500 180 Result Diagrams: 01/14/20 06:00 01/14/20 06:00 Hospitalist ROS - Review of Systems Respiratory: denies: cough, dry, shortness of breath, hemoptysis, SOB with excertion, pleuritic pain, sputum, wheezing, other Cardiovascular: denies: chest pain, palpitations, orthopnea, paroxysmal noc. dyspnea, edema, light headedness, other - Medication Medications: Active Medications Generic Name Dose Route Start Last Admin Trade Name Freq PRN Reason Stop Dose Admin Amlodipine Besylate 5 mg 01/12/20 09:00 01/14/20 11:36 Norvasc PO 5 mg BID FIDENCIO Administration Aspirin 81 mg 01/11/20 09:00 01/14/20 11:36 Ecotrin PO 81 mg DAILY FIDENCIO Administration Calcitriol 0.25 mcg 01/11/20 09:00 01/14/20 11:38 Rocaltrol PO 0.25 mcg DAILY FIDENCIO Administration Carvedilol 12.5 mg 01/09/20 17:00 01/14/20 11:37 Coreg PO 12.5 mg BID-WM FIDENCIO Administration Clonidine 0.1 mg 01/09/20 21:00 01/14/20 11:36 Catapres PO 0.1 mg BID FIDENCIO Administration Epoetin Sandor-epbx 7,500 unit 01/12/20 08:15 01/12/20 12:06 Retacrit SC 7,500 unit Q7D FIDENCIO Administration Ferrous Sulfate 325 mg 01/12/20 17:00 01/14/20 11:37 Feosol PO 325 mg BID-WM FIDENCIO Administration Hydralazine HCl 20 mg 01/08/20 05:51 01/09/20 11:23 Apresoline SLOW IVP 20 mg Q4H PRN Administration Hypertension Losartan Potassium 25 mg 01/13/20 09:00 01/14/20 11:36 Cozaar PO 25 mg DAILY FIDENCIO Administration Ondansetron HCl 4 mg 01/08/20 09:47 01/11/20 21:21 Zofran IVP 4 mg Q6H PRN Administration Nausea/Vomiting Pantoprazole Sodium 40 mg 01/09/20 09:00 01/14/20 12:42 Protonix PO 40 mg DAILY FIDENCIO Administration Sevelamer Carbonate 800 mg 01/10/20 08:00 01/14/20 12:44 Renvela PO Not Given TID-WM FIDENCIO Sodium Chloride 10 ml 01/08/20 09:00 01/14/20 11:38 Flush - Normal Saline IVF 10 ml Q12HR FIDENCIO Administration Tramadol HCl 50 mg 01/11/20 17:05 01/12/20 14:04 Ultram PO 50 mg Q6H PRN Administration Moderate Pain (4-6) - Exam General Appearance: NAD Heart: RRR, no gallops Respiratory: no wheezes, no rales Gastrointestinal: non-tender, non-distended, normal bowel sounds Extremities: no cyanosis Neurological: no new deficit Hosp A/P - Plan DVT proph w/SCDs Hypertensive emergency s/p Cardene drip Acute on chronic diastolic HF RHODA on CKD 5 - worsening N/V due to gastritis - nonerosive - s/p EGD Chronic anemia - prob due to renal insuff Abn EKG Hypokalemia Gross hematuria PLAN: Cont Coreg, Amlodipine with Clonidine Cont dialysis per Nephrology Cont other meds as above Await outpt dialysis setup
[2020-01-15 05:42] LABS: #Basophils 0.1 thou/uL (0.0-0.2); #Eosinphils 0.3 thou/uL (0.0-0.7); #Lymphocytes 1.5 thou/uL (1.20-3.40); #Monocytes 0.7 thou/uL (0.11-0.59); #Neutrophils 4.5 thou/uL (1.40-6.50); %Basophils 0.8 % (0.0-1.0); %Eosinophils 4.6 % (0.0-10.0); %Lymphocytes 21.8 % (21.0-51.0); %Monocytes 9.4 % (0.0-10.0); %Neutrophils 63.5 % (42.0-75.0); Hemoglobin 9.6 g/dL (12.0-16.0); Mean Corpuscular HGB CONC 32.6 g/dL (32.0-36.0); Mean Corpuscular Volume 92.3 fL (78.0-98.0); Mean Platelet Volume 9.8 fL (7.4-10.4); Platelet Count 191 thou/uL (130-400); RBC Distribution Width 13.6 % (11.5-14.5); Red Blood Cell (RBC) Count 3.19 mill/uL (4.20-5.40); White Blood Cell (WBC) Count 7.1 thou/uL (4.8-10.8)
[2020-01-15 06:06] LABS: Anion Gap 12 mmol/L (10-20); BUN (Urea Nitrogen) 28 mg/dL (7.0-18.7); Calc. Creatinine Clearance 15 mL/min (70-130); Calcium 8.5 mg/dL (7.8-10.44); Carbon Dioxide 29 mmol/L (22-29); Chloride 97 mmol/L (98-107); Estimated GFR-MDRD 13; Glucose 90 mg/dL (70-105); Potassium 4.1 mmol/L (3.5-5.1); Sodium 134 mmol/L (136-145)
--- NOTE | 2020-01-15 10:19 | PRG ---
DATE OF SERVICE: 01/15/2020 SERVICE: Renal Medicine. SUBJECTIVE: Ms. Cheatham is a 44-year-old black female, who was admitted for labile hypertension. She was found to have chronic renal failure from hypertensive nephropathy. She has been initiated on dialysis. She is undergoing hemodialysis today and tolerating said treatment. Adjustment of BP medications has also been done with her, which has improved her blood pressure. OBJECTIVE: VITAL SIGNS: Blood pressure 143/85, heart rate 55, respiratory rate 16, temperature 98, O2 saturation 100%. GENERAL: The patient is awake, alert, comfortable, not in distress. SKIN: Adequate turgor. HEENT: Slightly pale conjunctivae. Anicteric sclerae. NECK: No neck mass. No carotid bruits. No JVD. CHEST: No deformities. LUNGS: Clear breath sounds. No wheezing. No crackles. HEART: Normal sinus rhythm. No murmurs. No gallops. No rubs. ABDOMEN: Globular, soft, nontender. No masses. EXTREMITIES: No edema. No deformities. MEDICATIONS: On January 15, 2020, were reviewed. LABORATORY DATA: On January 15, 2020; white count 7.1, hemoglobin 9.6. Sodium 134, potassium 4.1, chloride 97, carbon dioxide 29, BUN 28, creatinine 4.28, glucose 90, calcium 8.5. ASSESSMENT AND PLAN: 1. Chronic renal failure/end-stage renal disease. Continuing hemodialysis regimen. She is undergoing 4-hour hemodialysis today. Our plan is to place her back on 3 times a week hemodialysis. We are awaiting outpatient dialysis placement. 2. Secondary hyperparathyroidism, currently on calcitriol. 3. Hyperphosphatemia, continuing Renvela. 4. Anemia. The patient is noted to be on a weekly Epogen regimen. 5. Overall, agree with current management. Job ID: [id number]
--- NOTE | 2020-01-15 10:36 | PDOC.HOSPP ---
- Subjective Encounter Date: 01/15/20 Encounter Time: 09:30 Subjective: Patient seen and examined for RHODA. No new complaints. No overnight events - Objective Vital Signs & Weight: Vital Signs (12 hours) Temp Pulse Resp BP Pulse Ox 01/15/20 08:16 98 F 55 L 16 143/85 H 100 01/15/20 08:00 100 01/15/20 02:13 99 Weight Admit Weight 123 lb 14.397 oz Weight 126 lb 1.6 oz Most Recent Monitor Data Heart Rate from ECG 64 NIBP 146/100 NIBP BP-Mean 115 Respiration from ECG 17 SpO2 100 I&O: 01/14/20 01/15/20 01/16/20 06:59 06:59 06:59 Intake Total 1500 570 Balance 1500 570 Result Diagrams: 01/15/20 05:30 01/15/20 05:30 Hospitalist ROS - Review of Systems Respiratory: denies: cough, dry, shortness of breath, hemoptysis, SOB with excertion, pleuritic pain, sputum, wheezing, other Cardiovascular: denies: chest pain, palpitations, orthopnea, paroxysmal noc. dyspnea, edema, light headedness, other Gastrointestinal: denies: nausea, vomiting, abdominal pain, diarrhea, constipation, melena, hematochezia, other - Medication Medications: Active Medications Generic Name Dose Route Start Last Admin Trade Name Darek PRN Reason Stop Dose Admin Amlodipine Besylate 5 mg 01/12/20 09:00 01/14/20 20:18 Norvasc PO Not Given BID FIDENCIO Aspirin 81 mg 01/11/20 09:00 01/14/20 11:36 Ecotrin PO 81 mg DAILY FIDENCIO Administration Calcitriol 0.25 mcg 01/11/20 09:00 01/14/20 11:38 Rocaltrol PO 0.25 mcg DAILY FIDENCIO Administration Carvedilol 12.5 mg 01/09/20 17:00 01/14/20 17:00 Coreg PO 12.5 mg BID-WM FIDENCIO Administration Clonidine 0.1 mg 01/09/20 21:00 01/14/20 20:17 Catapres PO 0.1 mg BID FIDENCIO Administration Epoetin Sandor-epbx 7,500 unit 01/12/20 08:15 01/12/20 12:06 Retacrit SC 7,500 unit Q7D FIDENCIO Administration Ferrous Sulfate 325 mg 01/12/20 17:00 01/14/20 17:00 Feosol PO 325 mg BID-WM FIDENCIO Administration Hydralazine HCl 20 mg 01/08/20 05:51 01/09/20 11:23 Apresoline SLOW IVP 20 mg Q4H PRN Administration Hypertension Losartan Potassium 25 mg 01/13/20 09:00 01/14/20 11:36 Cozaar PO 25 mg DAILY FIDENCIO Administration Ondansetron HCl 4 mg 01/08/20 09:47 01/11/20 21:21 Zofran IVP 4 mg Q6H PRN Administration Nausea/Vomiting Pantoprazole Sodium 40 mg 01/09/20 09:00 01/14/20 12:42 Protonix PO 40 mg DAILY FIDENCIO Administration Sevelamer Carbonate 800 mg 01/10/20 08:00 01/14/20 17:00 Renvela PO 800 mg TID-WM FIDENCIO Administration Sodium Chloride 10 ml 01/08/20 09:00 01/14/20 20:20 Flush - Normal Saline IVF 10 ml Q12HR FIDENCIO Administration Tramadol HCl 50 mg 01/11/20 17:05 01/12/20 14:04 Ultram PO 50 mg Q6H PRN Administration Moderate Pain (4-6) - Exam General Appearance: NAD Heart: RRR, no gallops Respiratory: no wheezes, no rales Gastrointestinal: soft, non-tender, non-distended Extremities: no cyanosis Neurological: no new deficit Psychiatric: normal affect, A&O x 3 Hosp A/P - Plan DVT proph w/heparin, DVT proph w/SCDs Hypertensive emergency s/p Cardene drip Acute on chronic diastolic HF RHODA on CKD 5 - worsening N/V due to gastritis - nonerosive - s/p EGD Chronic anemia - prob due to renal insuff Abn EKG Hypokalemia Gross hematuria - resolved PLAN: Cont Coreg Amlodipine Cont Losartan and Clonidine Dialysis per Nephrology Cont other meds as above Await outpt dialysis setup - stable for dc
[2020-01-15] MEDS: Sevelamer Carbonate 800 MG TAB PO SCH ×3 (14:38→18:22)
--- NOTE | 2020-01-15 14:38 | EKG ---
Test Reason : EMERGENCY Blood Pressure : / mmHG Vent. Rate : 105 BPM Atrial Rate : 105 BPM P-R Int : 148 ms QRS Dur : 086 ms QT Int : 354 ms P-R-T Axes : 081 059 011 degrees QTc Int : 467 ms Sinus tachycardia Possible Left atrial enlargement Left ventricular hypertrophy with repolarization abnormality Abnormal ECG Confirmed by CORAZON MINOR ([id number]), video news editor MAITE GARCIA ([id number]) on 01/15/2020 2:37:50 PM Referred By: Confirmed By:CORAZON MINOR
[2020-01-15] MEDS: Losartan 25 MG TAB PO SCH (14:39)
[2020-01-15] MEDS: Carvedilol 6.25 MG TAB PO SCH ×2 (14:39→18:22)
[2020-01-15] MEDS: Aspirin 81 mg Enteric Coated Tablet PO SCH (14:39)
[2020-01-15] MEDS: cloNIDine 0.1 MG TAB PO SCH ×2 (14:39→22:09)
[2020-01-15] MEDS: Amlodipine 5 MG TAB PO SCH ×2 (14:40→22:10)
[2020-01-15] MEDS: Ferrous Sulfate 325 MG TAB PO SCH ×2 (14:41→18:22)
[2020-01-15] MEDS: Calcitriol 0.25 MCG CAP PO SCH (14:41)
[2020-01-16] MEDS: Sevelamer Carbonate 800 MG TAB PO SCH ×3 (08:36→18:15)
[2020-01-16] MEDS: Carvedilol 6.25 MG TAB PO SCH ×2 (08:36→18:15)
[2020-01-16] MEDS: Ferrous Sulfate 325 MG TAB PO SCH ×2 (08:36→18:15)
--- NOTE | 2020-01-16 09:36 | PDOC.HOSPP ---
- Subjective Encounter Date: 01/16/20 Encounter Time: 08:00 Subjective: Patient seen and examined for RHODA. s/p dialysis yesterday. No CP/SOB. No new complaints. No overnight events - Objective Vital Signs & Weight: Vital Signs (12 hours) Temp Pulse Resp BP Pulse Ox 01/16/20 07:26 98.1 F 99 18 127/77 97 01/16/20 00:53 100 01/15/20 22:10 63 Weight Admit Weight 123 lb 14.397 oz Weight 125 lb 14.4 oz Most Recent Monitor Data Heart Rate from ECG 64 NIBP 146/100 NIBP BP-Mean 115 Respiration from ECG 17 SpO2 100 I&O: 01/15/20 01/16/20 01/17/20 06:59 06:59 06:59 Intake Total 570 1580 Output Total 2100 Balance 570 -520 Result Diagrams: 01/15/20 05:30 01/15/20 05:30 Hospitalist ROS - Review of Systems Respiratory: denies: cough, dry, shortness of breath, hemoptysis, SOB with excertion, pleuritic pain, sputum, wheezing, other Cardiovascular: denies: chest pain, palpitations, orthopnea, paroxysmal noc. dyspnea, edema, light headedness, other Gastrointestinal: denies: nausea, vomiting, abdominal pain, diarrhea, constipation, melena, hematochezia, other - Medication Medications: Active Medications Generic Name Dose Route Start Last Admin Trade Name Freq PRN Reason Stop Dose Admin Amlodipine Besylate 5 mg 01/12/20 09:00 01/15/20 22:10 Norvasc PO 5 mg BID FIDENCIO Administration Aspirin 81 mg 01/11/20 09:00 01/15/20 14:39 Ecotrin PO 81 mg DAILY FIDENCIO Administration Calcitriol 0.25 mcg 01/11/20 09:00 01/15/20 14:41 Rocaltrol PO 0.25 mcg DAILY FIDENCIO Administration Carvedilol 12.5 mg 01/09/20 17:00 01/15/20 18:22 Coreg PO 12.5 mg BID-WM FIDENCIO Administration Clonidine 0.1 mg 01/09/20 21:00 01/15/20 22:09 Catapres PO 0.1 mg BID FIDENCIO Administration Epoetin Sandor-epbx 7,500 unit 01/12/20 08:15 01/12/20 12:06 Retacrit SC 7,500 unit Q7D FIDENCIO Administration Ferrous Sulfate 325 mg 01/12/20 17:00 01/15/20 18:22 Feosol PO 325 mg BID-WM FIDENCIO Administration Hydralazine HCl 20 mg 01/08/20 05:51 01/09/20 11:23 Apresoline SLOW IVP 20 mg Q4H PRN Administration Hypertension Losartan Potassium 25 mg 01/13/20 09:00 01/15/20 14:39 Cozaar PO 25 mg DAILY FIDENCIO Administration Ondansetron HCl 4 mg 01/08/20 09:47 01/11/20 21:21 Zofran IVP 4 mg Q6H PRN Administration Nausea/Vomiting Pantoprazole Sodium 40 mg 01/09/20 09:00 01/15/20 14:40 Protonix PO 40 mg DAILY FIDENCIO Administration Sevelamer Carbonate 800 mg 01/10/20 08:00 01/15/20 18:22 Renvela PO 800 mg TID-WM FIDENCIO Administration Sodium Chloride 10 ml 01/08/20 09:00 01/15/20 22:12 Flush - Normal Saline IVF 10 ml Q12HR FIDENCIO Administration Tramadol HCl 50 mg 01/11/20 17:05 01/12/20 14:04 Ultram PO 50 mg Q6H PRN Administration Moderate Pain (4-6) - Exam General Appearance: NAD Heart: RRR, no gallops Respiratory: no wheezes, no rales Gastrointestinal: soft, non-tender, normal bowel sounds Extremities: no cyanosis Neurological: no new deficit Psychiatric: A&O x 3 Hosp A/P - Plan Hypertensive emergency -s/p Cardene drip -on Amlodipine/Coreg/Losartan Acute on chronic diastolic HF -improved with dialysis RHODA on CKD 5/ESRD -started on dialysis -s/p dialysis access N/V due to gastritis - nonerosive -s/p EGD this admission -on PPI Chronic anemia - prob due to renal insuff -on Epogen per Nephro Abn EKG -prob due to uncontrolled HTN -Echo - LVH -needs stress test as outpt Abn LFTS -prob due to passive hepatic congestion Hypokalemia -corrected Secondary hyperparathyroidism -on Calcitriol/Sevelamer Gross hematuria -resolved PLAN: Cont above meds Dialysis per Nephrology Await outpt dialysis setup - stable for dc
[2020-01-16] MEDS: cloNIDine 0.1 MG TAB PO SCH ×2 (09:37→20:22)
[2020-01-16] MEDS: Aspirin 81 mg Enteric Coated Tablet PO SCH (09:37)
[2020-01-16] MEDS: Amlodipine 5 MG TAB PO SCH ×2 (09:39→20:22)
[2020-01-16] MEDS: Losartan 25 MG TAB PO SCH (09:39)
[2020-01-16] MEDS: Calcitriol 0.25 MCG CAP PO SCH (09:39)
--- NOTE | 2020-01-16 11:08 | PRG ---
DATE OF SERVICE: 01/16/2020 SUBJECTIVE: Ms. Cheatham is a 44-year-old black female, who was initially admitted for labile hypertension. She was found to be in acute kidney injury/chronic renal failure and was initiated on dialysis. Her etiology is most likely from underlying hypertensive nephropathy. The patient voices no new complaints today. She has been tolerating dialysis. We are awaiting outpatient dialysis placement. OBJECTIVE: VITAL SIGNS: Blood pressure 127/77, heart rate 99, respiratory rate 18, temperature 98.1, O2 saturation 97%. GENERAL: The patient is awake, alert, comfortable, not in overt distress. SKIN: Adequate turgor. HEENT: She has pinkish conjunctivae. Anicteric sclerae. No neck mass. No carotid bruits. No JVD. CHEST: No deformities. LUNGS: Clear breath sounds. No wheezing. No crackles. HEART: Normal sinus rhythm. No murmur. No gallops. No rubs. ABDOMEN: Globular, soft, nontender. No masses. EXTREMITIES: No edema. No deformities. MEDICATIONS: Medications of January 16, 2020, was reviewed. LABORATORY DATA: Laboratories of January 15, 2020 was also reviewed. ASSESSMENT AND PLAN: 1. Chronic renal failure/end-stage renal disease, continuing 3 times a week hemodialysis. Fluid removal as tolerated. 2. Labile hypertension, much improved. Continue current BP medications. 3. Renal osteodystrophy. Continuing phosphate binders and calcitriol. 4. Anemia, continuing weekly Epogen. Continue current management. Job ID: [id number]
[2020-01-17 06:29] LABS: #Basophils 0.1 thou/uL (0.0-0.2); #Eosinphils 0.4 thou/uL (0.0-0.7); #Lymphocytes 1.7 thou/uL (1.20-3.40); #Monocytes 0.9 thou/uL (0.11-0.59); #Neutrophils 5.2 thou/uL (1.40-6.50); %Basophils 1.1 % (0.0-1.0); %Eosinophils 5.3 % (0.0-10.0); %Lymphocytes 20.7 % (21.0-51.0); %Monocytes 10.3 % (0.0-10.0); %Neutrophils 62.6 % (42.0-75.0); Hemoglobin 9.9 g/dL (12.0-16.0); Mean Corpuscular HGB CONC 32.7 g/dL (32.0-36.0); Mean Corpuscular Hemoglobin 30.2 pg (27.0-31.0); Mean Corpuscular Volume 92.3 fL (78.0-98.0); Mean Platelet Volume 9.6 fL (7.4-10.4); Platelet Count 252 thou/uL (130-400); RBC Distribution Width 13.5 % (11.5-14.5); Red Blood Cell (RBC) Count 3.26 mill/uL (4.20-5.40); White Blood Cell (WBC) Count 8.2 thou/uL (4.8-10.8)
[2020-01-17 06:52] LABS: ALT (SGPT) Less than 7 U/L (8-55); AST (SGOT) 8 U/L (5-34); Albumin 3.2 g/dL (3.5-5.0); Alkaline Phosphatase 87 U/L (40-110); Anion Gap 13 mmol/L (10-20); BUN (Urea Nitrogen) 46 mg/dL (7.0-18.7); Bilirubin, Total 0.2 mg/dL (0.2-1.2); Calc. Creatinine Clearance 11 mL/min (70-130); Calcium 8.8 mg/dL (7.8-10.44); Carbon Dioxide 27 mmol/L (22-29); Chloride 99 mmol/L (98-107); Estimated GFR-MDRD 9; Globulin 2.7 g/dL (2.4-3.5); Glucose 87 mg/dL (70-105); Potassium 4.6 mmol/L (3.5-5.1); Protein, Total 5.9 g/dL (6.0-8.3); Sodium 134 mmol/L (136-145)
--- NOTE | 2020-01-17 08:18 | PRG ---
DATE OF SERVICE: 01/17/2020 SUBJECTIVE: Ms. Cheatham is a 44-year-old black female with known history of chronic renal failure/ESRD. She was initiated dialysis with this hospitalization. She was initially admitted for labile hypertension, which is much improved. She voices no new complaints. She denies any chest pain or shortness of breath. OBJECTIVE: VITAL SIGNS: Blood pressure 147/77, heart rate 60, respiratory rate 14, temperature 97.4, O2 saturation 100% on room air. GENERAL: Awake, alert, comfortable, not in overt distress. SKIN: Adequate turgor. HEENT: She has pinkish conjunctivae. Anicteric sclerae. No neck mass. No carotid bruits. No JVD. CHEST: No deformities. LUNGS: Clear breath sounds. HEART: Normal sinus rhythm. No murmur. No gallops. No rubs. ABDOMEN: Globular, soft, nontender. No masses. EXTREMITIES: No edema. No deformities. MEDICATIONS: Medications of January 17, 2020, reviewed. LABORATORY DATA: Laboratories of January 17, 2020; white count 8.2, hemoglobin 9.9, hematocrit 30.1. Sodium 134, potassium 4.6, chloride 99, carbon dioxide 27, BUN 46, creatinine 5.92, calcium 8.8, AST is 8, ALT less than 7, albumin 3.2. ASSESSMENT AND PLAN: 1. Chronic renal failure/end-stage renal disease - secondary to hypertensive nephropathy. Continuing 3 times a week hemodialysis. Awaiting outpatient dialysis placement. 2. Anemia - we will continue current weekly Epogen. Continue iron supplementation. Job ID: [id number]
[2020-01-17 08:22] VITALS: TEMP 98.2
[2020-01-17] MEDS: Amlodipine 5 MG TAB PO SCH (08:35)
[2020-01-17] MEDS: Calcitriol 0.25 MCG CAP PO SCH (08:35)
[2020-01-17] MEDS: Sevelamer Carbonate 800 MG TAB PO SCH ×2 (09:14→12:45)
[2020-01-17] MEDS: Carvedilol 6.25 MG TAB PO SCH (09:14)
[2020-01-17] MEDS: Aspirin 81 mg Enteric Coated Tablet PO SCH (09:14)
[2020-01-17] MEDS: Losartan 25 MG TAB PO SCH (09:14)
[2020-01-17] MEDS: Ferrous Sulfate 325 MG TAB PO SCH (09:14)
[2020-01-17] MEDS: cloNIDine 0.1 MG TAB PO SCH (09:15)
[2020-01-17 09:16] VITALS: BP 147/77
--- NOTE | 2020-01-17 15:05 | DIS ---
DATE OF ADMISSION: 01/08/2020 DATE OF DISCHARGE: 01/17/2020 DISCHARGE DISPOSITION: Home. FOLLOWUP: 1. Follow up with primary care physician at [facility] in [place] in 1 week. 2. Follow up with General Surgery, Dr. Stewart as scheduled. 3. Follow up with Cardiology, Dr. Esquivel in 2 to 3 weeks. 4. Outpatient cardiac rehab. 5. Stress test as outpatient is recommended. Primary care physician advised to follow. The patient was seen and examined on the day of discharge. Denies any new complaints. No chest pain, shortness of breath, or palpitations reported. VITAL SIGNS: Showed temperature 98.2, pulse of 76, respirations of 16, blood pressure of 144/84 with O2 saturation 99% on room air. BRIEF HOSPITAL COURSE: The patient is a 44-year-old female with hypertension and CKD, presented to the hospital with shortness of breath along with headache. Her blood pressure in the emergency room was 221/151. She was started on Cardene drip and was monitored in the intensive care unit. Her creatinine was 6.8. The patient was evaluated by Nephrology, Cardiology, and Critical Care. Later on, she was transferred to the telemetry unit. She has been started on beta blockers along with clonidine and amlodipine. Her echocardiogram showed ejection fraction 50% to 55% with moderate concentric left ventricular hypertrophy with diastolic dysfunction. It also showed mild to moderate mitral regurgitation and mild tricuspid regurgitation. Dialysis has been initiated. She had a dialysis access placed by Dr. Stewart. Creatinine at discharge is 5.92. Due to significant nausea and vomiting, the patient was seen by Gastroenterology and underwent EGD that showed nonerosive gastritis. DISCHARGE MEDICATIONS: 1. Protonix 40 mg daily. 2. Aspirin 81 mg daily. 3. Clonidine 0.1 mg twice a day. 4. Carvedilol 12.5 mg b.i.d. 5. Calcitriol 0.25 mcg daily. 6. Ferrous sulfate 325 b.i.d. 7. Losartan 25 daily. 8. Renvela 800 mg 3 times a day. 9. Lipitor 20 mg daily. FINAL DIAGNOSES: 1. Hypertensive emergency, requiring Cardene drip. 2. Acute on chronic diastolic heart failure, improved with dialysis. 3. Acute kidney injury on chronic kidney disease stage 5. The patient has been started on hemodialysis. 4. Nausea and vomiting secondary to nonerosive gastritis, started on PPIs. 5. Chronic anemia, probably due to renal insufficiency. 6. Abnormal EKG, probably secondary to uncontrolled hypertension. An outpatient stress test is recommended. Primary care physician advised to follow. 7. Abnormal LFTs secondary to passive hepatic congestion. 8. Hypokalemia. 9. Hyponatremia. 10. Secondary hyperparathyroidism. 11. Gross hematuria, resolved. 12. The patient understands the above plan of care. TIME SPENT: Time coordinating the discharge of this patient was 36 minutes. Job ID: [id number]
== END 2020-01-17 14:33 | disposition home or self-care (01) | DRG 264 ==
LOC: ERS 03:19 → CCU 07:29 → 2NO 17:57 → ONC 01-13 18:08
PROVIDERS: ADMIT Internal Medicine; ATTEND Internal Medicine
PROC: 0DB78ZX Excision of Stomach, Pylorus, Via Natural or Artificial Opening Endoscopic, Diagnostic (ICD-10-PCS; 2020-01-09)
PROC: 031B3ZF Bypass Right Radial Artery to Lower Arm Vein, Percutaneous Approach (ICD-10-PCS; principal; 2020-01-11)
PROC: 0JH63XZ Insertion of Tunneled Vascular Access Device into Chest Subcutaneous Tissue and Fascia, Percutaneous Approach (ICD-10-PCS; 2020-01-11)
PROC: 02HV33Z Insertion of Infusion Device into Superior Vena Cava, Percutaneous Approach (ICD-10-PCS; 2020-01-11)
DX: I13.2 Hypertensive heart and chronic kidney disease with heart failure and with stage 5 chronic kidney disease, or end stage renal disease (principal); I50.33 Acute on chronic diastolic (congestive) heart failure; N18.5 Chronic kidney disease, stage 5; N17.9 Acute kidney failure, unspecified; N25.81 Secondary hyperparathyroidism of renal origin; I16.1 Hypertensive emergency; E87.1 Hypo-osmolality and hyponatremia; I24.8 Other forms of acute ischemic heart disease; E87.6 Hypokalemia; R31.0 Gross hematuria; D63.1 Anemia in chronic kidney disease; K76.1 Chronic passive congestion of liver; K29.60 Other gastritis without bleeding; F17.210 Nicotine dependence, cigarettes, uncomplicated; Z87.442 Personal history of urinary calculi; Z79.899 Other long term (current) drug therapy; Z91.19 Patient's noncompliance with other medical treatment and regimen; E83.39 Other disorders of phosphorus metabolism
CPT/HCPCS: 36415; 71045; 76770; 80048; 80053; 80069; 80074; 80306; 81001; 82553; 83520; 83690; 83880; 83970; 84484; 84703; 85014; 85018; 85025; 85049; 86038; 86225; 86256; 86580; 86704; 86706; 86803; 87340; 88305; 88312; 90935; 93005; 93306; 93798; 93970; 93975; 94760; 96365; 96375; C1752; G0257; G0365; J0360; J0690; J1644; J1940; J2001; J2405; J2704; J2720; J3010; Q5105; S0020

== ENCOUNTER 2020-02-18 07:15 | Outpatient (CLI) | payer OTHER ==
[2020-02-18 14:08] LABS: #Eosinphils 0.4 thou/uL (0.0-0.7); #Lymphocytes 1.5 thou/uL (1.20-3.40); #Monocytes 0.8 thou/uL (0.11-0.59); #Neutrophils 8.9 thou/uL (1.40-6.50); %Basophils 0.3 % (0.0-1.0); %Eosinophils 3.2 % (0.0-10.0); %Lymphocytes 12.8 % (21.0-51.0); %Monocytes 6.4 % (0.0-10.0); %Neutrophils 77.2 % (42.0-75.0); Hemoglobin 12.4 g/dL (12.0-16.0); Mean Corpuscular HGB CONC 32.8 g/dL (32.0-36.0); Mean Corpuscular Hemoglobin 29.7 pg (27.0-31.0); Mean Corpuscular Volume 90.6 fL (78.0-98.0); Mean Platelet Volume 9.8 fL (7.4-10.4); Platelet Count 191 thou/uL (130-400); RBC Distribution Width 13.6 % (11.5-14.5); White Blood Cell (WBC) Count 11.6 thou/uL (4.8-10.8)
[2020-02-18 14:19] LABS: BHCG - Serum Negative (NEGATIVE); Pregs Control Background? CLEAR/WHITE (CLR/WHITE); Pregs Control Bar Appear? YES (CONTROL BAR)
[2020-02-18 14:22] LABS: Anion Gap 14 mmol/L (10-20); BUN (Urea Nitrogen) 22 mg/dL (7.0-18.7); Calc. Creatinine Clearance 0 mL/min (70-130); Calcium 9.9 mg/dL (7.8-10.44); Carbon Dioxide 32 mmol/L (22-29); Chloride 95 mmol/L (98-107); Estimated GFR-MDRD 10; Glucose 73 mg/dL (70-105); Potassium 4.3 mmol/L (3.5-5.1); Sodium 137 mmol/L (136-145)
[2020-02-19 12:28] LABS: SARS-CoV-2 MS2 Positive; SARS-CoV-2 N Gene Negative; SARS-CoV-2 S Gene Negative; SARS-CoV-2 by NAA Not Detected (NotDetected); SARS-CoV-2 orf1ab Negative
== END 2020-02-18 07:16 | disposition home or self-care (01) ==
LOC: LABBT 07:15
PROVIDERS: ATTEND Specialist
DX: Z01.812 Encounter for preprocedural laboratory examination (principal); Z11.59 Encounter for screening for other viral diseases; N18.6 End stage renal disease; T82.590A Other mechanical complication of surgically created arteriovenous fistula, initial encounter
CPT/HCPCS: 80048; 84703; 85025; 87635; U0003

== ENCOUNTER 2020-02-23 06:10 | Day surgery (SDC) | payer OTHER ==
[2020-02-15 10:47] VITALS: BMI 18.8
--- NOTE | 2020-02-22 08:45 | HP ---
HISTORY OF PRESENT ILLNESS: Colette Cheatham is a 44-year-old black female who I initially saw and placed in her right arm fistula and hemodialysis catheter in right IJ. She initiated dialysis, followed by Dr. Osman, dialyzes at [facility] on Friday, , and Friday. At the time of formation of her right arm fistula on 01/11/2020, the patient had a good antecubital vein and good outflow calibrated from a 2 mm to 4 mm dilator. She had preferential outflow through her cephalic vein, stood up nicely post arterialization. She states the last 2 weeks Dialysis Center notes the bruit became weaker and by the time she presented today her cephalic vein fistula is thrombosed. Ultrasound vein mapping revealed her cephalic vein in left arm was inadequate; basilic vein, may be adequate; basilic vein right arm superior to the left. Plan at this time is left arm fistula, possibly staged basilic vein versus prosthetic graft outpatient under general anesthesia. She had general anesthesia last time. She understands risks and benefits and possibly she may need an operation to definitively gain function. HABITS: Tobacco, 3 cigarettes a day. Alcohol, occasionally. MEDICATIONS: 1. Calcitriol. 2. Ferrous sulfate. 3. Protonix. 4. Amlodipine. 5. Clonidine. 6. Losartan. 7. Minoxidil. 8. Carvedilol. ALLERGIES: NONE. VEIN MAPPING ON 01/11/2020 NOTED ABOVE, CEPHALIC VEIN IN LEFT ARM FOR 1.4, 1.6, 1.7, 1.5 MM TO ELBOW. BASILIC VEIN IN LEFT ARM, 3.1, 3.1, 2.6, 2.1 JUST PROXIMAL TO THE ELBOW, 1.7 JUST DISTAL TO THE ELBOW. PAST SURGICAL HISTORY: 1. Urolithiasis. 2. Urinary stenting. 3. Bilateral tubal ligation, 3, para 3. PAST MEDICAL HISTORY: 1. Hypertension. 2. End-stage renal disease. 3. History of urolithiasis. REVIEW OF SYSTEMS: Noncontributory. FAMILY HISTORY: Noncontributory. PHYSICAL EXAMINATION: VITAL SIGNS: Weight 135 pounds, blood pressure 165/99, heart rate 58, and temperature 97.7 degrees. HEAD, EARS, EYES, NOSE, AND THROAT: Unremarkable. LUNGS: Clear to auscultation. CARDIAC: Regular rate and rhythm without murmur or gallop. ABDOMEN: Soft and nontender. EXTREMITIES: Unremarkable. Right arm fistula thrombosed. Palpable radial pulse. ASSESSMENT AND PLAN: Thrombosed cephalic vein fistula, right arm. PLAN: Left arm fistula or graft is indicated under general anesthesia outpatient. Job ID: [id number]
[2020-02-23] MEDS ORDERED: Propofol 500 MG/50 ML VIAL ONE (06:44)
[2020-02-23] MEDS ORDERED: Fentanyl 100 MCG/2 ML VIAL ONE ×2 (06:44→06:59)
[2020-02-23 06:48] LABS: #Eosinphils 0.3 thou/uL (0.0-0.7); #Lymphocytes 1.5 thou/uL (1.20-3.40); #Neutrophils 6.1 thou/uL (1.40-6.50); %Basophils 0.5 % (0.0-1.0); %Eosinophils 3.7 % (0.0-10.0); %Lymphocytes 16.8 % (21.0-51.0); %Monocytes 10.9 % (0.0-10.0); %Neutrophils 68.1 % (42.0-75.0); Hemoglobin 10.7 g/dL (12.0-16.0); Mean Corpuscular HGB CONC 32.9 g/dL (32.0-36.0); Mean Corpuscular Hemoglobin 29.9 pg (27.0-31.0); Mean Corpuscular Volume 90.9 fL (78.0-98.0); Mean Platelet Volume 7.9 fL (7.4-10.4); Platelet Count 232 thou/uL (130-400); RBC Distribution Width 13.4 % (11.5-14.5); White Blood Cell (WBC) Count 8.9 thou/uL (4.8-10.8)
[2020-02-23] MEDS ORDERED: Bupivacaine PF 0.5% 30 ML VIAL ONE (06:51)
[2020-02-23] MEDS ORDERED: Protamine Sulfate 50 MG/5 ML VIAL ONE (06:51)
[2020-02-23] MEDS ORDERED: Lidocaine 1% w/Epinephrine 1:100K 20 ML VIAL ONE (06:51)
[2020-02-23] MEDS ORDERED: Heparin 5,000 UNITS/ML VIAL ONE (06:51)
[2020-02-23] MEDS ORDERED: Acetaminophen 500 MG TAB ONE (06:57)
[2020-02-23 07:07] LABS: Anion Gap 14 mmol/L (10-20); BUN (Urea Nitrogen) 27 mg/dL (7.0-18.7); Calc. Creatinine Clearance 10 mL/min (70-130); Calcium 9.2 mg/dL (7.8-10.44); Carbon Dioxide 29 mmol/L (22-29); Chloride 97 mmol/L (98-107); Estimated GFR-MDRD 8; Glucose 78 mg/dL (70-105); Potassium 3.8 mmol/L (3.5-5.1); Sodium 136 mmol/L (136-145)
[2020-02-23] MEDS ORDERED: Bupivacaine HCl 0.5%/Epinephrine 1:200,000/PF 30 ml Vial ONE (09:05)
[2020-02-23] MEDS ORDERED: PROPOFOL 200 MG/20 ML VIAL ONE (09:05)
[2020-02-23] MEDS ORDERED: Heparin 10,000 UNITS/ 10 ML VIAL ONE (09:49)
--- NOTE | 2020-02-23 11:40 | OP ---
DATE OF PROCEDURE: 02/23/2020 PREOPERATIVE DIAGNOSES: End-stage renal disease, thrombosed fistula right arm, left cephalic vein inadequate for a fistula, basilic vein possibly adequate. POSTOPERATIVE DIAGNOSES: End-stage renal disease, thrombosed fistula right arm, left cephalic vein inadequate for a fistula, basilic vein possibly adequate. PROCEDURES PERFORMED: Left arm primary fistula antecubital vein to the proximal radial artery, which is a good caliber, outflow basilic vein, will need a basilic vein transposition if this maintains patency. Otherwise, she will need a graft left arm. Left arm primary fistula, perforating branch antecubital vein, outflow basilic vein only. ANESTHESIA: Regional, TIVA. DESCRIPTION OF PROCEDURE: The patient was taken to the operating room, where under regional anesthesia, left upper extremity was prepared with ChloraPrep and draped in routine fashion. Incision was made in the proximal volar forearm longitudinally below the antecubital fossa carrying to skin and subcutaneous tissue. Cephalic vein was nonexistent. Perforating branch was dissected free. Branches divided between clips. Antecubital vein dissected free, ligated on the hand side with double clips. Perforating branch dissected free and the outflow was temperamental, but it did accept dilators up to 3.5 mm coronary dilator out the basilic vein communicating outflow. The antecubital vein seemed to be a superior quality as it was transected, spatulated, and interrogated up to a 3.5 mm coronary dilator, flushed with heparinized saline solution. The patient was given 6000 heparin intravenously. Brachial, ulnar, and proximal radial artery dissected free. After adequate circulation time, vascular clamps applied, longitudinal arteriotomy was made in the proximal radial artery, elongated with [place] scissors for a 2.5 cm anastomosis. Vein accordingly spatulated, cephalic vein forearm and end vein to side proximal radial artery anastomosis created with continuous suture of 6-0 Prolene, completing the anastomosis, releasing clamps, noting good outflow to the basilic vein. Good hemostasis noted. The patient was given 25 mg of protamine intravenously by Anesthesia. Subcutaneous tissue was approximated with 3- 0 Monocryl, skin with subdermal 4-0 Monocryl, and [place] glue applied. Good Doppler signal noted. Job ID: [id number]
== END 2020-02-23 10:14 | disposition home or self-care (01) ==
LOC: SDC 06:10
PROVIDERS: ATTEND Specialist
PROC: 05WY07Z Revision of Autologous Tissue Substitute in Upper Vein, Open Approach (ICD-10-PCS; principal; 2020-02-23)
DX: T82.868A Thrombosis due to vascular prosthetic devices, implants and grafts, initial encounter (principal); I11.0 Hypertensive heart disease with heart failure; N18.6 End stage renal disease; F17.210 Nicotine dependence, cigarettes, uncomplicated; Z79.899 Other long term (current) drug therapy
CPT/HCPCS: 80048; 85025; J0670; J0690; J1644; J2704; J2720; J3010; S0020

== ENCOUNTER 2020-04-14 05:58 | Outpatient (CLI) | payer OTHER ==
[2020-04-14 13:59] LABS: #Eosinphils 0.3 thou/uL (0.0-0.7); #Lymphocytes 1.2 thou/uL (1.20-3.40); #Monocytes 0.6 thou/uL (0.11-0.59); #Neutrophils 5.5 thou/uL (1.40-6.50); %Basophils 0.5 % (0.0-1.0); %Eosinophils 4.1 % (0.0-10.0); %Lymphocytes 16.1 % (21.0-51.0); %Neutrophils 71.2 % (42.0-75.0); Hemoglobin 11.3 g/dL (12.0-16.0); Mean Corpuscular HGB CONC 32.1 g/dL (32.0-36.0); Mean Corpuscular Hemoglobin 30.5 pg (27.0-31.0); Platelet Count 196 thou/uL (130-400); RBC Distribution Width 15.8 % (11.5-14.5); White Blood Cell (WBC) Count 7.7 thou/uL (4.8-10.8)
[2020-04-14 14:40] LABS: Anion Gap 20 mmol/L (10-20); BUN (Urea Nitrogen) 65 mg/dL (7.0-18.7); Calc. Creatinine Clearance 0 mL/min (70-130); Calcium 8.8 mg/dL (7.8-10.44); Carbon Dioxide 23 mmol/L (22-29); Chloride 104 mmol/L (98-107); Estimated GFR-MDRD 5; Glucose 78 mg/dL (70-105); Potassium 5.4 mmol/L (3.5-5.1); Sodium 142 mmol/L (136-145)
[2020-04-15 14:47] LABS: SARS-CoV-2 MS2 Positive; SARS-CoV-2 N Gene Negative; SARS-CoV-2 S Gene Negative; SARS-CoV-2 by NAA Not Detected (NotDetected); SARS-CoV-2 orf1ab Negative
== END 2020-04-14 05:59 | disposition home or self-care (01) ==
LOC: LABBT 05:58
PROVIDERS: ATTEND Specialist
DX: Z01.812 Encounter for preprocedural laboratory examination (principal); N18.6 End stage renal disease; Z20.828 Contact with and (suspected) exposure to other viral communicable diseases
CPT/HCPCS: 80048; 85025; 87635; U0003

== ENCOUNTER 2020-04-18 09:54 | Day surgery (SDC) | payer OTHER ==
[2020-04-14 11:47] VITALS: BMI 19.0
--- NOTE | 2020-04-14 12:07 | HP ---
HISTORY OF PRESENT ILLNESS: Colette Cheatham is a 44-year-old female, black, who has had a right arm fistula and hemodialysis catheter, right IJ. She dialyzes at [facility] on Friday, , and Friday. This was placed in her right arm on 01/11/2020, but it thrombosed. She more recently had a left arm fistula placed antecubital vein to the proximal radial artery of good caliber, outflow basilic vein noted at that time that she would need a basilic vein transposition. On followup today, she has a good thrill and bruit in her fistula. She has a collateral vein connecting to a more proximal cephalic vein upper arm. Plan at this time is for a basilic vein transposition fistula as an outpatient in the next 1 or 2 weeks. We will plan this under either regional versus general per Anesthesia and the patient's choice. HABITS: Tobacco, 3 cigarettes a day. Alcohol occasionally. MEDICATIONS: 1. Calcitriol. 2. Ferrous sulfate. 3. Protonix. 4. Amlodipine. 5. Clonidine. 6. Losartan. 7. Minoxidil. 8. Carvedilol. ALLERGIES: NONE. VEIN MAPPING FOR CEPHALIC VEINS BILATERALLY PREOPERATIVELY. PAST SURGICAL HISTORY: Urolithiasis, urinary stenting, bilateral tubal ligation. PAST MEDICAL HISTORY: End-stage renal disease, on maintenance dialysis; hypertension; urolithiasis. REVIEW OF SYSTEMS: Noncontributory. FAMILY HISTORY: Noncontributory. PHYSICAL EXAMINATION: VITAL SIGNS: Weight 133 pounds, height 66 inches, blood pressure 146/105, heart rate 74, temperature 97.3 degrees. HEAD, EYES EARS, NOSE, AND THROAT: Unremarkable. LUNGS: Clear to auscultation. CARDIAC: Regular rhythm without murmur or gallop. ABDOMEN: Soft and nontender. No masses. EXTREMITIES: Unremarkable. Left upper arm primary fistula with good thrill and bruit. Outflow basilic vein and collateral vein to the cephalic vein upper arm. PLAN: We will plan basilic vein transposition fistula as an outpatient. She understands risks and benefits. Job ID: [id number]
[2020-04-18] MEDS ORDERED: Fentanyl 100 MCG/2 ML VIAL ONE ×2 (11:47→11:56)
[2020-04-18] MEDS ORDERED: Propofol 1,000 MG/100 ML VIAL IV ONE (11:56)
[2020-04-18] MEDS ORDERED: Heparin 5,000 UNITS/ML VIAL ONE (12:02)
[2020-04-18] MEDS ORDERED: Lidocaine 1% w/Epinephrine 1:100K 20 ML VIAL ONE (12:02)
[2020-04-18] MEDS ORDERED: Bupivacaine PF 0.5% 30 ML VIAL ONE (12:02)
[2020-04-18] MEDS ORDERED: Lidocaine 2% Jelly 5 ML TUBE ONE (12:23)
[2020-04-18] MEDS ORDERED: Ketamine 50 MG/ML (10ML VIAL) ONE (12:55)
[2020-04-18] MEDS ORDERED: Protamine Sulfate 50 MG/5 ML VIAL ONE (13:52)
[2020-04-18] MEDS ORDERED: Bupivacaine HCl 0.5%/Epinephrine 1:200,000/PF 30 ml Vial ONE (13:56)
[2020-04-18] MEDS ORDERED: Heparin 1,000 UNITS/ML VIAL ONE ×2 (15:28)
--- NOTE | 2020-04-18 19:46 | OP ---
DATE OF PROCEDURE: 04/18/2020 PREOPERATIVE DIAGNOSES: End-stage renal disease, occluded cephalic vein. POSTOPERATIVE DIAGNOSES: End-stage renal disease, occluded cephalic vein. PROCEDURE PERFORMED: Basilic vein transposition fistula, left arm. ANESTHESIA: Regional, TIVA, local 0.5% Marcaine 30 mL mixed with 1% Xylocaine with epinephrine 20 mL. DESCRIPTION OF PROCEDURE: The patient was taken to the operating room, where under regional anesthesia and intravenous sedation, left upper extremity was prepared with ChloraPrep and draped in routine fashion. Incision was made from the proximal volar forearm across the antecubital fossa to the mid upper arm to the axilla, carried down to skin and subcutaneous tissue identifying the basilic vein, dissected free, dividing branch between 4-0 silk ties and clips. There was a large branch communicating the basilic vein to the cephalic vein in the upper arm. The basilic vein more proximally seemed to be decompressed. There seemed to be a point of obstruction just beyond this larger collateral vein. There was another collateral vein laterally, dissected free. The vein was dissected up from the axilla. This nerve was kept free of harm. A Ann Marie Wick tunneler, 12 head used to create a tunnel anterior upper arm from the antecubital fossa to the axilla. The patient was given 6000 units of heparin intravenously. The basilic vein was then dissected free and a larger collateral branch divided and flushed with heparinized saline solution and it distended nicely. There was an area at the distal 3rd of the basilic vein that seemed to have an occlusive process. I placed a 5 Chelo catheter through this to the collateral vein and this reestablished arterial inflow. It had good flow. There were two large collaterals that I then anastomosed in the end spatulating both using continuous suture of 6-0 Prolene, and I divided the intervening segment that had had an obstruction. Then, I ligated both these ends with 4-0 silk ties. The vein then had excellent arterial flow. It was marked with a marker, and the basilic vein above the antecubital fossa divided sharply and connected to Ann Marie Wick tunneler with 3-0 Monocryl placed in the tunnel, maintained the marker to prevent torsion. The end-to-end vein anastomosis was created with continuous suture of 6-0 Prolene after spatulating each. Vascular clamp was released. There was good flow in the fistula, and it distended nicely. Melcroft bed was hemostatic. The patient was given 25 mg of protamine intravenously by Anesthesia. Subcutaneous tissue was approximated with 3-0 Monocryl after Surgicel placed in the harvest bed. Skin approximated with west. Sterile dressing applied. Good signal palpated on the basilic vein coursing the anterior upper arm. Sterile dressings applied. Job ID: [id number]
== END 2020-04-18 15:50 | disposition home or self-care (01) ==
LOC: SDC 09:54
PROVIDERS: ATTEND Specialist
PROC: 05SC3ZZ Reposition Left Basilic Vein, Percutaneous Approach (ICD-10-PCS; principal; 2020-04-18)
DX: T82.868A Thrombosis due to vascular prosthetic devices, implants and grafts, initial encounter (principal); I12.0 Hypertensive chronic kidney disease with stage 5 chronic kidney disease or end stage renal disease; N18.6 End stage renal disease; F17.210 Nicotine dependence, cigarettes, uncomplicated; Z79.899 Other long term (current) drug therapy; Z99.2 Dependence on renal dialysis
CPT/HCPCS: J0670; J0690; J1644; J2704; J2720; J3010; S0020

== ENCOUNTER 2020-05-19 05:11 | Emergency (ER) | payer OTHER ==
[2020-05-19 05:55] LABS: #Basophils 0.1 thou/uL (0.0-0.2); #Eosinphils 0.3 thou/uL (0.0-0.7); #Lymphocytes 1.5 thou/uL (1.20-3.40); #Monocytes 0.6 thou/uL (0.11-0.59); %Basophils 1.4 % (0.0-1.0); %Eosinophils 4.2 % (0.0-10.0); %Lymphocytes 19.4 % (21.0-51.0); %Monocytes 8.2 % (0.0-10.0); %Neutrophils 66.8 % (42.0-75.0); Hemoglobin 11.5 g/dL (12.0-16.0); Mean Corpuscular HGB CONC 33.1 g/dL (32.0-36.0); Mean Corpuscular Hemoglobin 32.2 pg (27.0-31.0); Mean Corpuscular Volume 97.3 fL (78.0-98.0); Mean Platelet Volume 8.2 fL (7.4-10.4); Platelet Count 188 thou/uL (130-400); RBC Distribution Width 13.7 % (11.5-14.5); Red Blood Cell (RBC) Count 3.56 mill/uL (4.20-5.40); White Blood Cell (WBC) Count 7.5 thou/uL (4.8-10.8)
[2020-05-19 06:14] LABS: ALT (SGPT) Less than 7 U/L (8-55); AST (SGOT) 7 U/L (5-34); Albumin 4.5 g/dL (3.5-5.0); Alkaline Phosphatase 60 U/L (40-110); Anion Gap 15 mmol/L (10-20); BUN (Urea Nitrogen) 22 mg/dL (7.0-18.7); Bilirubin, Total 0.4 mg/dL (0.2-1.2); Calc. Creatinine Clearance 0 mL/min (70-130); Calcium 9.3 mg/dL (7.8-10.44); Carbon Dioxide 30 mmol/L (22-29); Chloride 97 mmol/L (98-107); Estimated GFR-MDRD 9; Globulin 3.1 g/dL (2.4-3.5); Glucose 102 mg/dL (70-105); Potassium 3.5 mmol/L (3.5-5.1); Protein, Total 7.6 g/dL (6.0-8.3); Sodium 138 mmol/L (136-145)
[2020-05-19 06:36] LABS: CKMB 1.2 ng/mL (0-6.6)
[2020-05-19 07:47] LABS: Troponin I 0.035 ng/mL (< 0.028)
--- NOTE | 2020-05-19 08:05 | RAD ---
EXAM: Chest 2 views: HISTORY: Shortness of breath COMPARISON: 01/11/2020 FINDINGS: There is a normal-sized cardiomediastinal silhouette. A right IJ dialysis catheter seen with its tip in the superior vena cava. The left IJ central venous catheter has been removed. There is no evidence of consolidation, mass, or pleural effusion. No acute osseous abnormality. IMPRESSION: No evidence of acute cardiopulmonary disease
== END 2020-05-19 08:45 | disposition home or self-care (01) ==
LOC: ERS 05:11
DX: R06.00 Dyspnea, unspecified (principal); I10 Essential (primary) hypertension; F17.210 Nicotine dependence, cigarettes, uncomplicated; Z79.899 Other long term (current) drug therapy
CPT/HCPCS: 36415; 71046; 80053; 82553; 83880; 84484; 85025; 93005

== ENCOUNTER 2021-05-08 01:18 | Inpatient (IN) | payer MEDICARE, MEDICAID ==
[2021-05-08 02:01] LABS: #Basophils 0.1 thou/uL (0.0-0.2); #Eosinphils 0.2 thou/uL (0.0-0.7); #Monocytes 0.9 thou/uL (0.11-0.59); #Neutrophils 6.8 thou/uL (1.40-6.50); %Basophils 0.9 % (0.0-1.0); %Eosinophils 2.3 % (0.0-10.0); %Monocytes 8.7 % (0.0-10.0); %Neutrophils 68.1 % (42.0-75.0); Hemoglobin 12.1 g/dL (12.0-16.0); Mean Corpuscular HGB CONC 33.4 g/dL (32.0-36.0); Mean Corpuscular Volume 98.9 fL (78.0-98.0); Mean Platelet Volume 9.1 fL (7.4-10.4); Platelet Count 176 thou/uL (130-400); RBC Distribution Width 14.6 % (11.5-14.5); Red Blood Cell (RBC) Count 3.66 mill/uL (4.20-5.40); White Blood Cell (WBC) Count 9.9 thou/uL (4.8-10.8)
[2021-05-08 02:15] LABS: ALT (SGPT) 145 U/L (8-55); AST (SGOT) 170 U/L (5-34); Albumin 4.3 g/dL (3.5-5.0); Alkaline Phosphatase 99 U/L (40-110); Anion Gap 20 mmol/L (10-20); BUN (Urea Nitrogen) 46 mg/dL (7.0-18.7); Bilirubin, Total 0.4 mg/dL (0.2-1.2); Calc. Creatinine Clearance 0 mL/min (70-130); Calcium 9.3 mg/dL (7.8-10.44); Carbon Dioxide 23 mmol/L (22-29); Chloride 102 mmol/L (98-107); Globulin 2.8 g/dL (2.4-3.5); Glucose 83 mg/dL (70-105); Potassium 5.4 mmol/L (3.5-5.1); Protein, Total 7.1 g/dL (6.0-8.3); Sodium 140 mmol/L (136-145)
[2021-05-08] MEDS ORDERED: Nitroglycerin 0.4 MG TAB 1 EACH ONE ×2 (02:25→03:21)
[2021-05-08] MEDS ORDERED: Furosemide 40 MG/4 ML VIAL ONE (02:30)
[2021-05-08] MEDS ORDERED: Nitroglycerin 2% Ointment 1 INCH/1 GM Packet ONE (02:30)
[2021-05-08 02:37] LABS: CKMB 2.2 ng/mL (0-6.6)
[2021-05-08] MEDS ORDERED: cloNIDine 0.1 MG TAB ONE (02:45)
[2021-05-08] MEDS ORDERED: niCARdipine 20MG In NaCl 20 MG/200 ML BAG ONE (03:26)
[2021-05-08] MEDS ORDERED: hydrALAZINE 20 MG/ML VIAL ONE (03:26)
[2021-05-08] MEDS ORDERED: Acetaminophen 650 MG Suppository PR PRN (03:55)
[2021-05-08] MEDS ORDERED: Ondansetron ODT 4 MG TAB PO PRN (03:55)
[2021-05-08] MEDS ORDERED: Acetaminophen 325 MG TAB PO PRN (03:55)
[2021-05-08 05:05] LABS: SARS-CoV-2 NAA Rapid Test Not Detected (NotDetected)
[2021-05-08 05:08] LABS: Troponin I 0.091 ng/mL (< 0.028)
[2021-05-08 05:10] LABS: Anion Gap 21 mmol/L (10-20); BUN (Urea Nitrogen) 48 mg/dL (7.0-18.7); Calc. Creatinine Clearance 0 mL/min (70-130); Calcium 8.8 mg/dL (7.8-10.44); Carbon Dioxide 20 mmol/L (22-29); Chloride 103 mmol/L (98-107); Glucose 90 mg/dL (70-105); Potassium 5.2 mmol/L (3.5-5.1); Sodium 139 mmol/L (136-145)
[2021-05-08] MEDS: Heparin 5,000 UNITS/ML VIAL SC SCH ×3 (09:12→19:40)
[2021-05-08] MEDS ORDERED: Amlodipine 5 MG TAB PO SCH ×2 (10:15→10:30)
[2021-05-08] MEDS ORDERED: Non-Formulary Item 1 EACH (Carvedilol [Coreg] 12.5 MG Tab) PO SCH (10:15)
[2021-05-08] MEDS ORDERED: Amlodipine 5 MG TAB ONE (10:22)
[2021-05-08] MEDS ORDERED: Carvedilol 6.25 MG TAB PO SCH (10:30)
[2021-05-08] MEDS: hydrALAZINE 20 MG/ML VIAL SLOW IVP PRN (13:17)
[2021-05-08] MEDS: Ferrous Sulfate 325 MG TAB PO SCH (18:38)
[2021-05-08] MEDS: Carvedilol 6.25 MG TAB PO SCH (19:42)
[2021-05-08] MEDS: Amlodipine 5 MG TAB PO SCH (19:42)
[2021-05-08] MEDS: Ondansetron PF 4 MG/2 ML Vial IVP PRN (19:43)
[2021-05-08] MEDS ORDERED: Non-Formulary Item 1 EACH (Carvedilol [Coreg] 12.5 MG) PO SCH (21:00)
[2021-05-08] MEDS ORDERED: Minoxidil 2.5 MG TAB PO SCH (21:00)
[2021-05-09] MEDS: hydrALAZINE 20 MG/ML VIAL SLOW IVP PRN (03:59)
[2021-05-09] MEDS ORDERED: HYDROcodone/Acetaminophen 5/325 mg Tablet PO SCH (04:30)
[2021-05-09] MEDS: Carvedilol 6.25 MG TAB PO SCH (08:56)
[2021-05-09] MEDS: Amlodipine 5 MG TAB PO SCH (08:57)
[2021-05-09] MEDS: Ferrous Sulfate 325 MG TAB PO SCH (08:58)
[2021-05-09] MEDS: Heparin 5,000 UNITS/ML VIAL SC SCH ×2 (08:59→15:19)
[2021-05-09] MEDS ORDERED: Losartan 25 MG TAB PO SCH (09:00)
[2021-05-09] MEDS: Ondansetron PF 4 MG/2 ML Vial IVP PRN (09:04)
[2021-05-09 10:15] LABS: #Eosinphils 0.2 thou/uL (0.0-0.7); #Monocytes 0.7 thou/uL (0.11-0.59); #Neutrophils 6.2 thou/uL (1.40-6.50); %Basophils 0.5 % (0.0-1.0); %Eosinophils 2.6 % (0.0-10.0); %Lymphocytes 12.7 % (21.0-51.0); %Monocytes 8.7 % (0.0-10.0); %Neutrophils 75.5 % (42.0-75.0); Hemoglobin 10.5 g/dL (12.0-16.0); Mean Corpuscular Volume 97.2 fL (78.0-98.0); Mean Platelet Volume 8.8 fL (7.4-10.4); Platelet Count 202 thou/uL (130-400); RBC Distribution Width 14.6 % (11.5-14.5); Red Blood Cell (RBC) Count 3.29 mill/uL (4.20-5.40); White Blood Cell (WBC) Count 8.2 thou/uL (4.8-10.8)
[2021-05-09 10:32] LABS: ALT (SGPT) 70 U/L (8-55); AST (SGOT) 18 U/L (5-34); Albumin 3.9 g/dL (3.5-5.0); Alkaline Phosphatase 77 U/L (40-110); Anion Gap 14 mmol/L (10-20); BUN (Urea Nitrogen) 19 mg/dL (7.0-18.7); Bilirubin, Total 0.6 mg/dL (0.2-1.2); Calc. Creatinine Clearance 0 mL/min (70-130); Carbon Dioxide 28 mmol/L (22-29); Chloride 101 mmol/L (98-107); Globulin 2.4 g/dL (2.4-3.5); Glucose 120 mg/dL (70-105); Potassium 4.2 mmol/L (3.5-5.1); Protein, Total 6.3 g/dL (6.0-8.3); Sodium 139 mmol/L (136-145)
[2021-05-09 11:43] VITALS: BP 150/98; TEMP 98
== END 2021-05-09 16:30 | disposition home or self-care (01) | DRG 291 ==
LOC: ERS 01:18 → ERHOLD 03:47 → 2SW 12:28
PROVIDERS: ADMIT Student in an Organized Health Care Education/Training Program; ATTEND Internal Medicine
PROC: 5A1D70Z Performance of Urinary Filtration, Intermittent, Less than 6 Hours Per Day (ICD-10-PCS; principal; 2021-05-08)
DX: I13.2 Hypertensive heart and chronic kidney disease with heart failure and with stage 5 chronic kidney disease, or end stage renal disease (principal); N18.6 End stage renal disease; J96.01 Acute respiratory failure with hypoxia; I50.31 Acute diastolic (congestive) heart failure; I16.1 Hypertensive emergency; I24.8 Other forms of acute ischemic heart disease; E87.5 Hyperkalemia; Z20.822 Contact with and (suspected) exposure to COVID-19; F17.210 Nicotine dependence, cigarettes, uncomplicated; D63.1 Anemia in chronic kidney disease; Z99.2 Dependence on renal dialysis; Z79.899 Other long term (current) drug therapy; Z87.442 Personal history of urinary calculi; Z95.828 Presence of other vascular implants and grafts; Z91.14 Patient's other noncompliance with medication regimen
CPT/HCPCS: 36415; 36416; 71045; 80053; 82553; 83880; 84484; 85025; 90935; 93005; 94640; 94660; 94760; G0257; J0360; J1644; J1940; J2405; J7620; U0002

== ENCOUNTER 2021-05-27 22:12 | Inpatient (IN) | payer MEDICARE, MEDICAID ==
[2021-05-27] MEDS ORDERED: Calcium Chloride 1 GM/10 ML Abboject SYRINGE ONE (23:02)
[2021-05-27] MEDS ORDERED: Furosemide 40 MG/4 ML VIAL ONE (23:02)
[2021-05-27] MEDS ORDERED: Nitroglycerin 2% Ointment 1 INCH/1 GM Packet ONE (23:02)
[2021-05-27 23:03] LABS: #Basophils 0.1 thou/uL (0.0-0.2); #Eosinphils 0.1 thou/uL (0.0-0.7); #Lymphocytes 1.6 thou/uL (1.20-3.40); #Monocytes 0.8 thou/uL (0.11-0.59); #Neutrophils 9.8 thou/uL (1.40-6.50); %Basophils 0.5 % (0.0-1.0); %Eosinophils 1.2 % (0.0-10.0); %Lymphocytes 12.8 % (21.0-51.0); %Monocytes 6.1 % (0.0-10.0); %Neutrophils 79.4 % (42.0-75.0); Hemoglobin 14.4 g/dL (12.0-16.0); Mean Corpuscular Hemoglobin 33.5 pg (27.0-31.0); Mean Corpuscular Volume 98.5 fL (78.0-98.0); Mean Platelet Volume 8.6 fL (7.4-10.4); Platelet Count 228 thou/uL (130-400); RBC Distribution Width 14.1 % (11.5-14.5); Red Blood Cell (RBC) Count 4.31 mill/uL (4.20-5.40); White Blood Cell (WBC) Count 12.3 thou/uL (4.8-10.8)
[2021-05-27] MEDS ORDERED: Ondansetron PF 4 MG/2 ML Vial ONE (23:03)
[2021-05-27 23:29] LABS: ALT (SGPT) 129 U/L (8-55); AST (SGOT) 169 U/L (5-34); Albumin 4.9 g/dL (3.5-5.0); Alkaline Phosphatase 106 U/L (40-110); Anion Gap 23 mmol/L (10-20); BUN (Urea Nitrogen) 70 mg/dL (7.0-18.7); Bilirubin, Total 0.6 mg/dL (0.2-1.2); Calc. Creatinine Clearance 0 mL/min (70-130); Calcium 10.1 mg/dL (7.8-10.44); Carbon Dioxide 23 mmol/L (22-29); Chloride 107 mmol/L (98-107); Globulin 3.1 g/dL (2.4-3.5); Glucose 94 mg/dL (70-105); Potassium 6.5 mmol/L (3.5-5.1); Sodium 146 mmol/L (136-145)
[2021-05-27] MEDS ORDERED: Metoprolol Tartrate 5 MG/5 ML VIAL ONE ×2 (23:29→23:36)
[2021-05-27] MEDS ORDERED: Metoprolol Tartrate 50 MG TAB ONE (23:34)
[2021-05-27 23:40] LABS: CKMB 4.2 ng/mL (0-6.6)
[2021-05-27] MEDS ORDERED: Insulin Regular 300 UNITS/3 ML VIAL ONE (23:54)
[2021-05-27] MEDS ORDERED: Dextrose 50% Abboject 50 ML SYRINGE ONE (23:54)
[2021-05-28] MEDS ORDERED: Acetaminophen 325 MG TAB PO PRN (00:49)
[2021-05-28] MEDS ORDERED: Ondansetron PF 4 MG/2 ML Vial IVP PRN (00:49)
[2021-05-28] MEDS ORDERED: niCARdipine 20MG In NaCl 20 MG/200 ML BAG ONE (00:57)
[2021-05-28] MEDS ORDERED: Vancomycin 1 GM in Premix Bag 1 BAG IVPB SCH ×2 (02:00→10:00)
[2021-05-28] MEDS ORDERED: Cefepime 1 GM in Sodium Chloride 0.9% 100 ML IVPB SCH (02:00)
[2021-05-28 02:04] LABS: SARS-CoV-2 NAA Rapid Test Not Detected (NotDetected)
[2021-05-28] MEDS ORDERED: Losartan 25 MG TAB PO SCH (09:00)
[2021-05-28] MEDS ORDERED: cloNIDine 0.2 MG TAB PO SCH (09:00)
[2021-05-28] MEDS: Heparin 5,000 UNITS/ML VIAL SC SCH ×2 (09:13→14:55)
[2021-05-28] MEDS ORDERED: HOLD VANCOMYCIN FOR LEVEL >20 FS SCH (10:00)
[2021-05-28] MEDS ORDERED: Vancomycin HCl 500 MG in Sodium Chloride 0.9% 100 ML IVPB SCH (10:00)
[2021-05-28] MEDS ORDERED: Vancomycin HCl 750 MG in Sodium Chloride 0.9% 250 ML 250 ML IVPB SCH (10:00)
[2021-05-28] MEDS ORDERED: Vancomycin HCl 250 MG in Sodium Chloride 0.9% 100 ML IVPB SCH (10:00)
[2021-05-28 11:50] VITALS: BMI 17.2
[2021-05-28] MEDS: Sevelamer Carbonate 800 MG TAB PO SCH ×2 (11:59→17:06)
[2021-05-28 12:02] LABS: #Basophils 0.1 thou/uL (0.0-0.2); #Eosinphils 0.1 thou/uL (0.0-0.7); #Lymphocytes 1.8 thou/uL (1.20-3.40); #Monocytes 0.7 thou/uL (0.11-0.59); #Neutrophils 7.7 thou/uL (1.40-6.50); %Basophils 0.6 % (0.0-1.0); %Eosinophils 0.9 % (0.0-10.0); %Lymphocytes 17.3 % (21.0-51.0); %Monocytes 6.6 % (0.0-10.0); %Neutrophils 74.6 % (42.0-75.0); Hemoglobin 13.6 g/dL (12.0-16.0); Mean Corpuscular HGB CONC 32.8 g/dL (32.0-36.0); Mean Corpuscular Hemoglobin 31.7 pg (27.0-31.0); Mean Corpuscular Volume 96.8 fL (78.0-98.0); Mean Platelet Volume 8.8 fL (7.4-10.4); Platelet Count 212 thou/uL (130-400); RBC Distribution Width 14.1 % (11.5-14.5); White Blood Cell (WBC) Count 10.4 thou/uL (4.8-10.8)
[2021-05-28 12:23] LABS: ALT (SGPT) 90 U/L (8-55); AST (SGOT) 41 U/L (5-34); Albumin 4.5 g/dL (3.5-5.0); Alkaline Phosphatase 96 U/L (40-110); Bilirubin, Direct 0.3 mg/dL (0.1-0.3); Bilirubin, Total 0.6 mg/dL (0.2-1.2); Protein, Total 7.7 g/dL (6.0-8.3)
[2021-05-28 12:24] LABS: Anion Gap 19 mmol/L (10-20); BUN (Urea Nitrogen) 40 mg/dL (7.0-18.7); Calc. Creatinine Clearance 8 mL/min (70-130); Calcium 10.2 mg/dL (7.8-10.44); Carbon Dioxide 28 mmol/L (22-29); Chloride 98 mmol/L (98-107); Glucose 165 mg/dL (70-105); Potassium 4.7 mmol/L (3.5-5.1); Sodium 140 mmol/L (136-145)
[2021-05-28 17:16] VITALS: BP 144/97; TEMP 98.5
[2021-05-29] MEDS ORDERED: Cefepime 0.5 GM, Admixture Fee 1 EACH in Sodium Chloride 0.9% 100 ML IVPB SCH (02:00)
[2021-05-31] MEDS ORDERED: FLU VACC QS2021-22(6MOS UP)/PF 60 MCG/0.5 ML SYRINGE IM ONE (09:00)
== END 2021-05-28 18:59 | disposition home or self-care (01) | DRG 280 ==
LOC: ERS 22:12 → CCU 05-28 00:46 → T4-B 05-28 10:36
PROVIDERS: ADMIT Internal Medicine; ATTEND Internal Medicine
PROC: 5A1D70Z Performance of Urinary Filtration, Intermittent, Less than 6 Hours Per Day (ICD-10-PCS; principal; 2021-05-28)
DX: I16.1 Hypertensive emergency (principal); N18.6 End stage renal disease; I21.A1 Myocardial infarction type 2; Z20.822 Contact with and (suspected) exposure to COVID-19; E87.5 Hyperkalemia; I12.0 Hypertensive chronic kidney disease with stage 5 chronic kidney disease or end stage renal disease; E87.70 Fluid overload, unspecified; Z99.2 Dependence on renal dialysis; Z87.891 Personal history of nicotine dependence; Z79.899 Other long term (current) drug therapy; Z87.442 Personal history of urinary calculi; Z95.828 Presence of other vascular implants and grafts; Z82.49 Family history of ischemic heart disease and other diseases of the circulatory system
CPT/HCPCS: 36415; 71045; 80048; 80053; 80076; 82553; 83605; 83880; 84484; 85025; 87040; 87070; 87205; 90935; 93005; 94760; G0257; J0692; J1644; J1815; J1940; J2405; J3370; J3490; U0002

== ENCOUNTER 2021-12-10 12:58 | Inpatient (IN) | payer MEDICARE, MEDICAID ==
[2021-12-10 13:51] LABS: #Eosinphils 0.2 thou/uL (0.0-0.7); #Lymphocytes 1.2 thou/uL (1.20-3.40); #Monocytes 0.5 thou/uL (0.11-0.59); #Neutrophils 4.7 thou/uL (1.40-6.50); %Basophils 0.6 % (0.0-1.0); %Lymphocytes 18.6 % (21.0-51.0); %Monocytes 7.5 % (0.0-10.0); %Neutrophils 70.3 % (42.0-75.0); Hemoglobin 14.2 g/dL (12.0-16.0); Mean Corpuscular HGB CONC 32.3 g/dL (32.0-36.0); Mean Corpuscular Volume 99.1 fL (78.0-98.0); Mean Platelet Volume 8.4 fL (7.4-10.4); Platelet Count 157 thou/uL (130-400); RBC Distribution Width 14.6 % (11.5-14.5); Red Blood Cell (RBC) Count 4.44 mill/uL (4.20-5.40); White Blood Cell (WBC) Count 6.7 thou/uL (4.8-10.8)
[2021-12-10 14:21] LABS: Acetaminophen Less than 10.0 mcg/mL (10.0-30.0); Alcohol Less than 10 mg/dL (Less than 10); Salicylate Less than 8.0 mg/dL (15.0-30.0)
[2021-12-10 14:22] LABS: ALT (SGPT) Less than 7 U/L (8-55); AST (SGOT) 7 U/L (5-34); Albumin 4.4 g/dL (3.5-5.0); Alkaline Phosphatase 57 U/L (40-110); Anion Gap 18 mmol/L (10-20); BUN (Urea Nitrogen) 52 mg/dL (7.0-18.7); Bilirubin, Total 0.6 mg/dL (0.2-1.2); CK (CPK) 51 U/L (29-168); Calc. Creatinine Clearance 0 mL/min (70-130); Carbon Dioxide 28 mmol/L (22-29); Chloride 100 mmol/L (98-107); Globulin 2.9 g/dL (2.4-3.5); Glucose 85 mg/dL (70-105); Protein, Total 7.3 g/dL (6.0-8.3); Sodium 141 mmol/L (136-145)
[2021-12-10] MEDS ORDERED: Nitroglycerin 2% Ointment 1 INCH/1 GM Packet ONE (15:48)
[2021-12-10] MEDS ORDERED: Ondansetron PF 4 MG/2 ML Vial IVP PRN (15:55)
[2021-12-10] MEDS ORDERED: Bisacodyl 5 MG TAB PO PRN (15:55)
[2021-12-10] MEDS ORDERED: Senokot S 8.6-50 MG TAB PO PRN (15:55)
[2021-12-10] MEDS ORDERED: Ondansetron ODT 4 MG TAB PO PRN (15:55)
[2021-12-10] MEDS ORDERED: HYDROcodone/Acetaminophen 5/325 mg Tablet PO PRN (15:55)
[2021-12-10] MEDS ORDERED: Bisacodyl 10 MG SUPP PR PRN (15:55)
[2021-12-10] MEDS ORDERED: hydrALAZINE 25 MG TAB ONE (16:12)
[2021-12-10] MEDS ORDERED: Ziprasidone 20 MG VIAL ONE (16:28)
[2021-12-10] MEDS ORDERED: Ziprasidone 20 MG VIAL IM SCH (16:30)
[2021-12-10] MEDS ORDERED: Haloperidol Lactate 5 MG/ML VIAL IM SCH (17:15)
[2021-12-10] MEDS ORDERED: Lorazepam 2 MG/ML VIAL IM SCH (17:15)
[2021-12-10] MEDS ORDERED: Lorazepam 2 MG/ML VIAL ONE (17:16)
[2021-12-10] MEDS ORDERED: Haloperidol Lactate 5 MG/ML VIAL ONE (17:16)
[2021-12-10 19:22] LABS: Hemoglobin A1c 4.8 % (4.0-6.0)
[2021-12-11] MEDS: Atorvastatin Calcium 20 MG TAB PO SCH (00:39)
[2021-12-11] MEDS: Minoxidil 2.5 MG TAB PO SCH (00:40)
[2021-12-11] MEDS: Cyproheptadine 4 MG TAB PO SCH (00:40)
[2021-12-11] MEDS: Carvedilol 6.25 MG TAB PO SCH ×2 (00:40→10:18)
[2021-12-11] MEDS: cloNIDine 0.2 MG TAB PO SCH ×2 (00:40→10:55)
[2021-12-11] MEDS: hydrALAZINE 20 MG/ML VIAL SLOW IVP PRN ×3 (03:34→23:32)
[2021-12-11 04:14] LABS: #Basophils 0.1 thou/uL (0.0-0.2); #Eosinphils 0.3 thou/uL (0.0-0.7); #Lymphocytes 1.7 thou/uL (1.20-3.40); #Monocytes 0.7 thou/uL (0.11-0.59); #Neutrophils 5.1 thou/uL (1.40-6.50); %Basophils 1.1 % (0.0-1.0); %Eosinophils 3.9 % (0.0-10.0); %Lymphocytes 21.8 % (21.0-51.0); %Monocytes 8.8 % (0.0-10.0); %Neutrophils 64.4 % (42.0-75.0); Hemoglobin 14.6 g/dL (12.0-16.0); Mean Corpuscular HGB CONC 32.6 g/dL (32.0-36.0); Mean Corpuscular Hemoglobin 31.9 pg (27.0-31.0); Mean Corpuscular Volume 97.9 fL (78.0-98.0); Mean Platelet Volume 8.4 fL (7.4-10.4); Platelet Count 170 thou/uL (130-400); RBC Distribution Width 14.5 % (11.5-14.5); Red Blood Cell (RBC) Count 4.59 mill/uL (4.20-5.40); White Blood Cell (WBC) Count 7.9 thou/uL (4.8-10.8)
[2021-12-11 04:32] LABS: ALT (SGPT) 7 U/L (8-55); AST (SGOT) 11 U/L (5-34); Albumin 4.3 g/dL (3.5-5.0); Alkaline Phosphatase 61 U/L (40-110); Anion Gap 20 mmol/L (10-20); BUN (Urea Nitrogen) 59 mg/dL (7.0-18.7); Bilirubin, Direct 0.2 mg/dL (0.1-0.3); Bilirubin, Total 0.7 mg/dL (0.2-1.2); Calc. Creatinine Clearance 0 mL/min (70-130); Calcium 10.1 mg/dL (7.8-10.44); Carbon Dioxide 23 mmol/L (22-29); Cardiac Risk 2.9 (Less than 4.5); Chloride 100 mmol/L (98-107); Cholesterol 147 mg/dl (< 200 Desired); Glucose 65 mg/dL (70-105); HDL Cholesterol 50 mg/dL (>60 Neg Risk); LDL Cholesterol, Calculated 79 mg/dL; Magnesium 3.1 mg/dL (1.6-2.6); Potassium 5.2 mmol/L (3.5-5.1); Protein, Total 7.4 g/dL (6.0-8.3); Sodium 138 mmol/L (136-145); Triglycerides 90 mg/dL (Less than 150)
[2021-12-11 07:48] VITALS: BMI 20.1
[2021-12-11] MEDS ORDERED: cloNIDine 0.3mg/24 Hour PATCH TD SCH (09:00)
[2021-12-11] MEDS ORDERED: Labetalol HCl 100 MG/20 ML VIAL SLOW IVP PRN ×2 (09:05→09:08)
[2021-12-11] MEDS ORDERED: Lorazepam 2 MG/ML VIAL SLOW IVP PRN (09:07)
[2021-12-11] MEDS: Amlodipine 5 MG TAB PO SCH (10:18)
[2021-12-11] MEDS: Losartan 25 MG TAB PO SCH (10:21)
[2021-12-11 11:01] LABS: Amphetamine Not Detected (NotDetected); Barbiturates Screen Not Detected (NotDetected); Benzodiazepine Screen Not Detected (NotDetected); Cocaine Metabolite Screen Not Detected (NotDetected); Methadone Not Detected (NotDetected); Methamphetamine Not Detected (NotDetected); Opiate Screen Not Detected (NotDetected); Oxycodone Screen Not Detected (NotDetected); Phencyclidine (PCP) Not Detected (NotDetected); THC/Cannabinoid Screen Not Detected (NotDetected); Tricyclic Screen Not Detected (NotDetected)
[2021-12-11 11:18] LABS: Syphilis Antibody Nonreactive (Nonreactive); Syphilis Antibody Index 0.04 S/CO (<1.00 Non-Reactive)
[2021-12-11 17:33] LABS: Pregnancy Test - Urine (BHCG) Negative (Negative); Specific Gravity 1.014 (1.002-1.036)
[2021-12-11 17:34] LABS: Pregu Control Background? CLEAR/WHITE (CLR/WHITE); Pregu Control Bar Appear? YES (CONTROL BAR)
[2021-12-11] MEDS: Lorazepam 2 MG/ML VIAL SLOW IVP SCH ×2 (18:52→23:22)
[2021-12-11 21:40] LABS: SARS-CoV-2 PCR by NAA Not Detected (NotDetected)
[2021-12-12] MEDS: Atorvastatin Calcium 20 MG TAB PO SCH (00:22)
[2021-12-12] MEDS: Cyproheptadine 4 MG TAB PO SCH ×2 (00:23→21:12)
[2021-12-12] MEDS: Minoxidil 2.5 MG TAB PO SCH ×2 (00:23→21:12)
[2021-12-12] MEDS: Carvedilol 6.25 MG TAB PO SCH ×3 (00:23→21:11)
[2021-12-12 04:17] LABS: #Basophils 0.1 thou/uL (0.0-0.2); #Eosinphils 0.1 thou/uL (0.0-0.7); #Lymphocytes 1.7 thou/uL (1.20-3.40); #Neutrophils 6.9 thou/uL (1.40-6.50); %Basophils 1.2 % (0.0-1.0); %Eosinophils 1.2 % (0.0-10.0); %Lymphocytes 17.1 % (21.0-51.0); %Monocytes 10.1 % (0.0-10.0); %Neutrophils 70.5 % (42.0-75.0); Mean Corpuscular HGB CONC 32.3 g/dL (32.0-36.0); Mean Corpuscular Hemoglobin 31.4 pg (27.0-31.0); Mean Corpuscular Volume 97.5 fL (78.0-98.0); Mean Platelet Volume 8.1 fL (7.4-10.4); Platelet Count 172 thou/uL (130-400); RBC Distribution Width 14.8 % (11.5-14.5); Red Blood Cell (RBC) Count 5.08 mill/uL (4.20-5.40); White Blood Cell (WBC) Count 9.8 thou/uL (4.8-10.8)
[2021-12-12 04:46] LABS: Anion Gap 23 mmol/L (10-20); BUN (Urea Nitrogen) 32 mg/dL (7.0-18.7); Calc. Creatinine Clearance 10 mL/min (70-130); Calcium 10.3 mg/dL (7.8-10.44); Carbon Dioxide 25 mmol/L (22-29); Chloride 97 mmol/L (98-107); Glucose 92 mg/dL (70-105); Magnesium 2.7 mg/dL (1.6-2.6); Potassium 4.3 mmol/L (3.5-5.1); Sodium 141 mmol/L (136-145)
[2021-12-12] MEDS: Losartan 25 MG TAB PO SCH (08:55)
[2021-12-12] MEDS: Lorazepam 2 MG/ML VIAL SLOW IVP SCH ×3 (08:56→21:10)
[2021-12-12] MEDS: Amlodipine 5 MG TAB PO SCH (08:59)
[2021-12-12] MEDS ORDERED: Atorvastatin Calcium 40 MG TAB PO SCH (21:00)
[2021-12-13 04:19] LABS: #Eosinphils 0.3 thou/uL (0.0-0.7); #Lymphocytes 1.7 thou/uL (1.20-3.40); #Neutrophils 4.7 thou/uL (1.40-6.50); %Basophils 0.6 % (0.0-1.0); %Eosinophils 3.9 % (0.0-10.0); %Lymphocytes 21.8 % (21.0-51.0); %Monocytes 13.1 % (0.0-10.0); %Neutrophils 60.5 % (42.0-75.0); Hemoglobin 14.9 g/dL (12.0-16.0); Mean Corpuscular HGB CONC 32.5 g/dL (32.0-36.0); Mean Corpuscular Hemoglobin 31.8 pg (27.0-31.0); Mean Platelet Volume 8.4 fL (7.4-10.4); Platelet Count 149 thou/uL (130-400); RBC Distribution Width 14.9 % (11.5-14.5); Red Blood Cell (RBC) Count 4.67 mill/uL (4.20-5.40); White Blood Cell (WBC) Count 7.7 thou/uL (4.8-10.8)
[2021-12-13 04:42] LABS: Anion Gap 21 mmol/L (10-20); BUN (Urea Nitrogen) 61 mg/dL (7.0-18.7); Calc. Creatinine Clearance 7 mL/min (70-130); Calcium 9.2 mg/dL (7.8-10.44); Carbon Dioxide 25 mmol/L (22-29); Chloride 95 mmol/L (98-107); Glucose 97 mg/dL (70-105); Potassium 4.6 mmol/L (3.5-5.1); Sodium 136 mmol/L (136-145)
[2021-12-13] MEDS ORDERED: Aspirin 81 mg Enteric Coated Tablet PO SCH (09:00)
[2021-12-13 09:35] LABS: HBSAg Index 0.21 S/CO (0-0.99); Hep B Surf Ag Non-Reactive S/CO (NonReactive)
[2021-12-13 09:42] LABS: HBSAB Concentration 14.84 mIU/mL; Hep B Surf AB Reactive (NonReactive)
[2021-12-13] MEDS: Lorazepam 2 MG/ML VIAL SLOW IVP SCH ×2 (11:46→13:55)
[2021-12-13] MEDS: Carvedilol 6.25 MG TAB PO SCH (11:46)
[2021-12-13 13:29] LABS: HIV (1/2) Antibody/Antigen Non-Reactive (NonReactive); HIV 1/2 INDEX 0.11 S/CO (<1.00)
[2021-12-13] MEDS: Amlodipine 5 MG TAB PO SCH (13:55)
[2021-12-13] MEDS: Losartan 25 MG TAB PO SCH (13:55)
[2021-12-13 15:31] VITALS: TEMP 98.4
[2021-12-13 15:43] VITALS: BP 107/61
== END 2021-12-13 18:50 | disposition left against medical advice (07) | DRG 70 ==
LOC: ERS 12:58 → ERHOLD 15:59 → 2NO 18:13
PROVIDERS: ADMIT Family Medicine; ATTEND Family Medicine
DX: G93.41 Metabolic encephalopathy (principal); N18.6 End stage renal disease; I12.0 Hypertensive chronic kidney disease with stage 5 chronic kidney disease or end stage renal disease; E85.9 Amyloidosis, unspecified; F20.2 Catatonic schizophrenia; I16.1 Hypertensive emergency; G35 Multiple sclerosis; E83.119 Hemochromatosis, unspecified; D86.9 Sarcoidosis, unspecified; E87.5 Hyperkalemia; I16.0 Hypertensive urgency; F32.A Depression, unspecified; R45.1 Restlessness and agitation; F17.210 Nicotine dependence, cigarettes, uncomplicated; D63.1 Anemia in chronic kidney disease; Z20.822 Contact with and (suspected) exposure to COVID-19; Z79.899 Other long term (current) drug therapy; Z99.2 Dependence on renal dialysis; Z78.1 Physical restraint status; Z87.442 Personal history of urinary calculi
CPT/HCPCS: 36415; 36416; 70450; 70551; 71045; 71046; 80048; 80053; 80061; 80076; 80306; 80307; 81025; 82140; 82550; 82607; 82746; 83036; 83735; 83880; 84145; 84443; 85025; 86140; 86706; 86780; 87340; 87389; 93005; 93306; 93880; 95712; 95819; 95957; J0360; J1630; J2060; J3486; U0003; U0005

== ENCOUNTER 2022-03-29 11:03 | Emergency (ER) | payer OTHER ==
[2022-03-29 12:43] LABS: #Eosinphils 0.2 thou/uL (0.0-0.7); #Monocytes 0.6 thou/uL (0.11-0.59); #Neutrophils 7.9 thou/uL (1.40-6.50); %Basophils 0.5 % (0.0-1.0); %Eosinophils 2.1 % (0.0-10.0); %Lymphocytes 10.4 % (21.0-51.0); %Monocytes 6.4 % (0.0-10.0); %Neutrophils 80.6 % (42.0-75.0); Hemoglobin 11.7 g/dL (12.0-16.0); Mean Corpuscular HGB CONC 32.4 g/dL (32.0-36.0); Mean Corpuscular Hemoglobin 31.9 pg (27.0-31.0); Mean Corpuscular Volume 98.4 fL (78.0-98.0); Mean Platelet Volume 9.1 fL (7.4-10.4); Platelet Count 192 thou/uL (130-400); RBC Distribution Width 15.7 % (11.5-14.5); Red Blood Cell (RBC) Count 3.65 mill/uL (4.20-5.40); White Blood Cell (WBC) Count 9.8 thou/uL (4.8-10.8)
[2022-03-29 13:13] LABS: ALT (SGPT) 44 U/L (8-55); AST (SGOT) 23 U/L (5-34); Alkaline Phosphatase 95 U/L (40-110); Anion Gap 21 mmol/L (10-20); BUN (Urea Nitrogen) 46 mg/dL (7.0-18.7); Bilirubin, Total 0.5 mg/dL (0.2-1.2); Calc. Creatinine Clearance 0 mL/min (70-130); Calcium 8.8 mg/dL (7.8-10.44); Carbon Dioxide 20 mmol/L (22-29); Chloride 103 mmol/L (98-107); Estimated GFR 5; Globulin 2.6 g/dL (2.4-3.5); Glucose 109 mg/dL (70-105); Magnesium 2.2 mg/dL (1.6-2.6); Potassium 4.9 mmol/L (3.5-5.1); Protein, Total 6.6 g/dL (6.0-8.3); Sodium 139 mmol/L (136-145)
[2022-03-29] MEDS ORDERED: Acetaminophen 500 MG TAB ONE ×3 (13:43→20:43)
[2022-03-29] MEDS ORDERED: cloNIDine 0.1 MG TAB PO SCH (15:45)
== END 2022-03-29 20:45 | disposition home or self-care (01) ==
LOC: ERS 11:03
DX: I12.0 Hypertensive chronic kidney disease with stage 5 chronic kidney disease or end stage renal disease (principal); N18.6 End stage renal disease; E87.2 Acidosis; Z99.2 Dependence on renal dialysis; F17.210 Nicotine dependence, cigarettes, uncomplicated
CPT/HCPCS: 36415; 71045; 80053; 83735; 84100; 85025; 90935; G0257

== ENCOUNTER 2022-05-13 18:31 | Inpatient (IN) | payer OTHER ==
[~2022-05-13 18:31] MED LIST: Iopamidol 370 76% 100 ML VIAL ONE
[2022-05-13] MEDS ORDERED: hydrALAZINE 20 MG/ML VIAL ONE (19:21)
[2022-05-13 19:37] LABS: #Basophils 0.1 thou/uL (0.0-0.2); #Eosinphils 0.3 thou/uL (0.0-0.7); #Lymphocytes 1.7 thou/uL (1.20-3.40); #Monocytes 0.8 thou/uL (0.11-0.59); #Neutrophils 7.8 thou/uL (1.40-6.50); %Basophils 0.7 % (0.0-1.0); %Eosinophils 3.2 % (0.0-10.0); %Lymphocytes 15.6 % (21.0-51.0); %Monocytes 7.1 % (0.0-10.0); %Neutrophils 73.5 % (42.0-75.0); Hemoglobin 12.5 g/dL (12.0-16.0); Mean Corpuscular HGB CONC 31.1 g/dL (32.0-36.0); Mean Corpuscular Hemoglobin 30.4 pg (27.0-31.0); Mean Corpuscular Volume 97.7 fL (78.0-98.0); Mean Platelet Volume 8.6 fL (7.4-10.4); Platelet Count 206 thou/uL (130-400); RBC Distribution Width 16.9 % (11.5-14.5); Red Blood Cell (RBC) Count 4.11 mill/uL (4.20-5.40); White Blood Cell (WBC) Count 10.7 thou/uL (4.8-10.8)
[2022-05-13 20:11] LABS: Magnesium 2.3 mg/dL (1.6-2.6)
[2022-05-13 20:21] LABS: CKMB 4.2 ng/mL (0-6.6)
[2022-05-13 21:11] LABS: Albumin 3.9 g/dL (3.5-5.0)
[2022-05-13 21:12] LABS: Chloride 104 mmol/L (98-107); Potassium 4.6 mmol/L (3.5-5.1); Sodium 140 mmol/L (136-145)
[2022-05-13 21:13] LABS: Calcium 9.4 mg/dL (7.8-10.44); Glucose 99 mg/dL (70-105)
[2022-05-13 21:14] LABS: Globulin 2.5 g/dL (2.4-3.5); Protein, Total 6.4 g/dL (6.0-8.3)
[2022-05-13 21:15] LABS: Anion Gap 19 mmol/L (10-20); Bilirubin, Total 0.7 mg/dL (0.2-1.2); Carbon Dioxide 22 mmol/L (22-29)
[2022-05-13 21:16] LABS: Alkaline Phosphatase 107 U/L (40-110)
[2022-05-13 21:17] LABS: Calc. Creatinine Clearance 0 mL/min (70-130); Estimated GFR 7
[2022-05-13 21:18] LABS: AST (SGOT) 36 U/L (5-34); BUN (Urea Nitrogen) 35 mg/dL (7.0-18.7)
[2022-05-13 21:19] LABS: ALT (SGPT) 62 U/L (8-55)
[2022-05-13 21:39] LABS: ALT (SGPT) 64 U/L (8-55); AST (SGOT) 35 U/L (5-34); Albumin 4.1 g/dL (3.5-5.0); Alkaline Phosphatase 113 U/L (40-110); Anion Gap 19 mmol/L (10-20); BUN (Urea Nitrogen) 37 mg/dL (7.0-18.7); Bilirubin, Total 0.7 mg/dL (0.2-1.2); Calc. Creatinine Clearance 0 mL/min (70-130); Calcium 9.5 mg/dL (7.8-10.44); Carbon Dioxide 20 mmol/L (22-29); Chloride 104 mmol/L (98-107); Estimated GFR 7; Globulin 2.7 g/dL (2.4-3.5); Glucose 100 mg/dL (70-105); Potassium 4.7 mmol/L (3.5-5.1); Protein, Total 6.8 g/dL (6.0-8.3); Sodium 138 mmol/L (136-145)
[2022-05-13] MEDS ORDERED: Morphine 2 MG/ML VIAL ONE (22:03)
[2022-05-13] MEDS ORDERED: niCARdipine 25 MG/10 ML VIAL ONE (22:05)
[2022-05-13] MEDS ORDERED: Acetaminophen 325 MG TAB PO PRN (22:18)
[2022-05-13] MEDS ORDERED: Ondansetron PF 4 MG/2 ML Vial IVP PRN (22:18)
[2022-05-13] MEDS ORDERED: niCARdipine 25 MG in Sodium Chloride 0.9% 250 ML 250 ML IVPB SCH (23:15)
[2022-05-13 23:26] LABS: CKMB 3.9 ng/mL (0-6.6)
[2022-05-14] MEDS: niCARdipine 50 MG in Sodium Chloride 0.9% 250 ML 230 ML IV SCH ×2 (01:36→05:04)
[2022-05-14 02:34] LABS: #Basophils 0.1 thou/uL (0.0-0.2); #Lymphocytes 0.8 thou/uL (1.20-3.40); #Monocytes 0.4 thou/uL (0.11-0.59); #Neutrophils 8.9 thou/uL (1.40-6.50); %Basophils 0.6 % (0.0-1.0); %Eosinophils 0.4 % (0.0-10.0); %Lymphocytes 7.6 % (21.0-51.0); %Neutrophils 87.4 % (42.0-75.0); Hemoglobin 12.1 g/dL (12.0-16.0); Mean Corpuscular HGB CONC 32.4 g/dL (32.0-36.0); Mean Corpuscular Hemoglobin 31.1 pg (27.0-31.0); Mean Corpuscular Volume 96.1 fL (78.0-98.0); Mean Platelet Volume 8.4 fL (7.4-10.4); Platelet Count 206 thou/uL (130-400); RBC Distribution Width 16.6 % (11.5-14.5); Red Blood Cell (RBC) Count 3.88 mill/uL (4.20-5.40); White Blood Cell (WBC) Count 10.2 thou/uL (4.8-10.8)
[2022-05-14 02:55] LABS: Anion Gap 17 mmol/L (10-20); BUN (Urea Nitrogen) 31 mg/dL (7.0-18.7); Calc. Creatinine Clearance 11 mL/min (70-130); Calcium 9.7 mg/dL (7.8-10.44); Carbon Dioxide 22 mmol/L (22-29); Chloride 103 mmol/L (98-107); Estimated GFR 9; Glucose 140 mg/dL (70-105); Sodium 138 mmol/L (136-145)
[2022-05-14 02:57] LABS: ALT (SGPT) 62 U/L (8-55); AST (SGOT) 27 U/L (5-34); Albumin 4.2 g/dL (3.5-5.0); Alkaline Phosphatase 112 U/L (40-110); Bilirubin, Direct 0.3 mg/dL (0.1-0.3); Bilirubin, Total 0.8 mg/dL (0.2-1.2)
[2022-05-14 03:10] LABS: CKMB 4.6 ng/mL (0-6.6)
[2022-05-14] MEDS ORDERED: niCARdipine 50 MG in Sodium Chloride 0.9% 250 ML 230 ML IV SCH (08:51)
[2022-05-14] MEDS: Losartan 25 MG TAB PO SCH (09:08)
[2022-05-14] MEDS: Carvedilol 6.25 MG TAB PO SCH ×2 (09:08→20:41)
[2022-05-14] MEDS: Heparin 5,000 UNITS/ML VIAL SC SCH ×2 (09:08→20:42)
[2022-05-14] MEDS: Famotidine 20 MG TAB PO SCH (09:08)
[2022-05-14] MEDS: Amlodipine 5 MG TAB PO SCH (09:08)
[2022-05-14] MEDS: cloNIDine 0.2 MG TAB PO SCH ×2 (09:08→20:42)
[2022-05-14 11:40] VITALS: BMI 17.6
[2022-05-14] MEDS ORDERED: Atorvastatin Calcium 20 MG TAB PO SCH (21:00)
[2022-05-14] MEDS ORDERED: Cyproheptadine 4 MG TAB PO SCH (21:00)
[2022-05-14] MEDS ORDERED: Minoxidil 2.5 MG TAB PO SCH (21:00)
[2022-05-15 04:12] LABS: Anion Gap 15 mmol/L (10-20); BUN (Urea Nitrogen) 31 mg/dL (7.0-18.7); Calc. Creatinine Clearance 10 mL/min (70-130); Calcium 8.7 mg/dL (7.8-10.44); Carbon Dioxide 21 mmol/L (22-29); Chloride 103 mmol/L (98-107); Estimated GFR 9; Glucose 87 mg/dL (70-105); Potassium 4.6 mmol/L (3.5-5.1); Sodium 134 mmol/L (136-145)
[2022-05-15 06:40] LABS: #Eosinphils 0.5 thou/uL (0.0-0.7); #Lymphocytes 1.6 thou/uL (1.20-3.40); #Monocytes 0.5 thou/uL (0.11-0.59); #Neutrophils 2.8 thou/uL (1.40-6.50); %Basophils 0.8 % (0.0-1.0); %Eosinophils 9.6 % (0.0-10.0); %Lymphocytes 29.3 % (21.0-51.0); %Monocytes 9.3 % (0.0-10.0); Hemoglobin 11.6 g/dL (12.0-16.0); Mean Corpuscular HGB CONC 30.9 g/dL (32.0-36.0); Mean Corpuscular Volume 97.1 fL (78.0-98.0); Mean Platelet Volume 8.4 fL (7.4-10.4); Platelet Count 181 thou/uL (130-400); RBC Distribution Width 16.4 % (11.5-14.5); Red Blood Cell (RBC) Count 3.86 mill/uL (4.20-5.40); White Blood Cell (WBC) Count 5.5 thou/uL (4.8-10.8)
[2022-05-15] MEDS: Carvedilol 6.25 MG TAB PO SCH (08:22)
[2022-05-15] MEDS: Losartan 25 MG TAB PO SCH (08:23)
[2022-05-15] MEDS: cloNIDine 0.2 MG TAB PO SCH (08:24)
[2022-05-15] MEDS: Heparin 5,000 UNITS/ML VIAL SC SCH (08:24)
[2022-05-15] MEDS: Famotidine 20 MG TAB PO SCH (08:24)
[2022-05-15 11:47] VITALS: BP 136/86; TEMP 97.9
[2022-05-15] MEDS: Amlodipine 5 MG TAB PO SCH (12:57)
[2022-05-16] MEDS ORDERED: Prevnar 13-Val Conj/PF 0.5 ML SYRINGE IM ONE (09:00)
== END 2022-05-15 19:45 | disposition home or self-care (01) | DRG 291 ==
LOC: ERS 18:31 → CCU 21:41 → 2SW 05-15 07:43
PROVIDERS: ADMIT Internal Medicine; ATTEND Hospitalist
PROC: 5A1D70Z Performance of Urinary Filtration, Intermittent, Less than 6 Hours Per Day (ICD-10-PCS; principal; 2022-05-14)
DX: I13.2 Hypertensive heart and chronic kidney disease with heart failure and with stage 5 chronic kidney disease, or end stage renal disease (principal); I50.33 Acute on chronic diastolic (congestive) heart failure; N18.6 End stage renal disease; I16.1 Hypertensive emergency; F17.210 Nicotine dependence, cigarettes, uncomplicated; F41.9 Anxiety disorder, unspecified; F32.A Depression, unspecified; E78.5 Hyperlipidemia, unspecified; D63.1 Anemia in chronic kidney disease; Z20.822 Contact with and (suspected) exposure to COVID-19; R79.89 Other specified abnormal findings of blood chemistry; Z99.2 Dependence on renal dialysis; Z82.49 Family history of ischemic heart disease and other diseases of the circulatory system; Z79.899 Other long term (current) drug therapy
CPT/HCPCS: 36415; 71045; 71275; 74174; 80048; 80053; 80076; 82553; 83735; 83880; 84443; 84484; 85025; 90935; 93005; 94760; 96374; 96375; G0257; J0360; J1644; J2270; J7050; Q9967; U0003; U0005

== ENCOUNTER 2022-07-02 04:03 | Emergency (ER) | payer OTHER, MEDICARE ==
[2022-07-02 05:56] LABS: #Basophils 0.1 thou/uL (0.0-0.2); #Eosinphils 0.6 thou/uL (0.0-0.7); #Lymphocytes 1.3 thou/uL (1.20-3.40); #Monocytes 0.8 thou/uL (0.11-0.59); #Neutrophils 4.4 thou/uL (1.40-6.50); %Basophils 1.2 % (0.0-1.0); %Eosinophils 8.5 % (0.0-10.0); %Lymphocytes 18.7 % (21.0-51.0); %Monocytes 10.7 % (0.0-10.0); Hemoglobin 10.9 g/dL (12.0-16.0); Mean Corpuscular HGB CONC 31.5 g/dL (32.0-36.0); Mean Corpuscular Hemoglobin 31.3 pg (27.0-31.0); Mean Corpuscular Volume 99.2 fl (78.0-98.0); Platelet Count 175 10x3/uL (130-400); RBC Distribution Width 15.8 % (11.5-14.5); White Blood Cell (WBC) Count 7.1 10x3/uL (4.8-10.8)
[2022-07-02 06:18] LABS: ALT (SGPT) 74 U/L (8-55); AST (SGOT) 20 U/L (5-34); Albumin 3.6 g/dL (3.5-5.0); Alkaline Phosphatase 84 U/L (40-110); Anion Gap 17 mmol/L (10-20); BUN (Urea Nitrogen) 66 mg/dL (7.0-18.7); Bilirubin, Total 0.3 mg/dL (0.2-1.2); CK (CPK) 51 U/L (29-168); Calc. Creatinine Clearance 0 mL/min (70-130); Calcium 8.7 mg/dL (7.8-10.44); Carbon Dioxide 22 mmol/L (22-29); Chloride 105 mmol/L (98-107); Estimated GFR 6; Globulin 2.2 g/dL (2.4-3.5); Glucose 89 mg/dL (70-105); Potassium 5.6 mmol/L (3.5-5.1); Protein, Total 5.8 g/dL (6.0-8.3); Sodium 138 mmol/L (136-145)
[2022-07-02 06:43] LABS: CKMB 3.1 ng/mL (0-6.6)
[2022-07-02] MEDS ORDERED: Nitroglycerin 2% Ointment 1 INCH/1 GM Packet ONE (07:05)
== END 2022-07-02 07:43 | disposition home or self-care (01) ==
LOC: ERS 04:03
DX: E87.70 Fluid overload, unspecified (principal); I10 Essential (primary) hypertension; F17.210 Nicotine dependence, cigarettes, uncomplicated; Z79.899 Other long term (current) drug therapy
CPT/HCPCS: 36415; 71045; 80053; 82550; 82553; 83880; 84484; 85025; 93005; 94760

== ENCOUNTER 2023-01-31 12:07 | Emergency (ER) | payer OTHER ==
[2023-01-31] MEDS ORDERED: hydrALAZINE 20 MG/ML VIAL ONE (12:37)
[2023-01-31 13:02] LABS: #Eosinphils 0.3 thou/uL (0.0-0.7); #Monocytes 0.6 thou/uL (0.11-0.59); %Basophils 0.8 % (0.0-1.0); %Monocytes 11.5 % (0.0-10.0); %Neutrophils 61.5 % (42.0-75.0); Hemoglobin 11.4 g/dL (12.0-16.0); Mean Corpuscular HGB CONC 32.7 g/dL (32.0-36.0); Mean Corpuscular Hemoglobin 31.1 pg (27.0-31.0); Mean Corpuscular Volume 95.4 fl (78.0-98.0); Mean Platelet Volume 10.9 fL (7.4-10.4); Platelet Count 166 10x3/uL (130-400); RBC Distribution Width 14.2 % (11.5-14.5); Red Blood Cell (RBC) Count 3.66 mill/uL (4.20-5.40); White Blood Cell (WBC) Count 4.8 10x3/uL (4.8-10.8)
[2023-01-31 13:28] LABS: Bacteria/HPF 4+ HPF (None Seen); Bilirubin Negative (Negative); Blood, Urine Negative (Negative); CAUTI Indications for Culture Fever or rigors; Clarity Turbid (Clear); Glucose, Urine (Dipstick) 150 mg/dL (Negative); Ketone, Urine Negative (Negative); Leukocyte 500 Leu/uL (Negative); Nitrite Negative (Negative); Protein, Urine (Dipstick) 300 mg/dL (Neg-Trace); RBC/HPF 0-3 HPF (0-3); Urobilinogen Normal mg/dL (Less than 2); WBC/HPF 21-50 HPF (0-3); pH, Urine 8.5 (5.0-9.0)
[2023-01-31 13:29] LABS: Urine Culture Reflex Yes Yes
[2023-01-31 13:29] LABS: ALT (SGPT) 25 U/L (8-55); AST (SGOT) 12 U/L (5-34); Albumin 4.3 g/dL (3.5-5.0); Alkaline Phosphatase 69 U/L (40-110); Anion Gap 19 mmol/L (10-20); BUN (Urea Nitrogen) 35 mg/dL (7.0-18.7); Bilirubin, Total 0.6 mg/dL (0.2-1.2); Calc. Creatinine Clearance 0 mL/min (70-130); Calcium 9.8 mg/dL (7.8-10.44); Carbon Dioxide 25 mmol/L (22-29); Chloride 101 mmol/L (98-107); Estimated GFR 7; Globulin 2.7 g/dL (2.4-3.5); Glucose 106 mg/dL (70-105); Potassium 4.4 mmol/L (3.5-5.1); Sodium 141 mmol/L (136-145)
[2023-01-31 13:32] LABS: Amphetamine Not Detected (NotDetected); Barbiturates Screen Not Detected (NotDetected); Benzodiazepine Screen Not Detected (NotDetected); Cocaine Metabolite Screen Not Detected (NotDetected); Methadone Not Detected (NotDetected); Methamphetamine Not Detected (NotDetected); Opiate Screen Not Detected (NotDetected); Oxycodone Screen Not Detected (NotDetected); Phencyclidine (PCP) Detected (NotDetected); THC/Cannabinoid Screen Not Detected (NotDetected); Tricyclic Screen Not Detected (NotDetected)
[2023-01-31 13:41] LABS: Acetaminophen Less than 10 mcg/mL (10.0-30.0); Alcohol Less than 10.0 mg/dL (Less than 10); Salicylate Less than 8.0 mg/dL (15.0-30.0)
[2023-01-31 14:07] LABS: CKMB 1.3 ng/mL (0-6.6)
[2023-01-31 14:15] LABS: SARS-CoV-2 NAA Rapid Test Not Detected (NotDetected)
== END 2023-01-31 14:40 | disposition home or self-care (01) ==
LOC: ERS 12:07
DX: N39.0 Urinary tract infection, site not specified (principal); M79.10 Myalgia, unspecified site; I12.0 Hypertensive chronic kidney disease with stage 5 chronic kidney disease or end stage renal disease; N18.5 Chronic kidney disease, stage 5; F17.210 Nicotine dependence, cigarettes, uncomplicated; Z20.822 Contact with and (suspected) exposure to COVID-19
CPT/HCPCS: 36416; 71045; 80053; 80306; 80307; 81001; 82553; 84484; 85025; 87086; 93005; 96374; J0360

== ENCOUNTER 2023-04-17 13:14 | Outpatient (CLI) | payer OTHER, MEDICAID | END 2023-04-17 13:15 | disposition home or self-care (01) | LOC: BICMAMMO 13:14 | PROVIDERS: ATTEND Internal Medicine Nephrology | DX: Z12.31 Encounter for screening mammogram for malignant neoplasm of breast (principal) | CPT/HCPCS: 77063; 77067 ==

== ENCOUNTER 2024-01-13 09:35 | Emergency (ER) | payer MEDICARE, OTHER ==
[2024-01-13] MEDS ORDERED: niCARdipine 25 MG/10 ML SDV ONE (10:23)
[2024-01-13 10:46] LABS: #Basophils 0.03 10x3/uL (0.0-0.2); %Basophils 0.5 % (0.0-1.0); %Eosinophils 3.5 % (0.0-10.0); %Lymphocytes 13.4 % (21.0-51.0); %Monocytes 7.1 % (0.0-10.0); %Neutrophils 75.2 % (42.0-75.0); Hematocrit 33.8 % (36.0-47.0); Hemoglobin 11.1 g/dL (12.0-16.0); Mean Corpuscular HGB CONC 32.8 g/dL (32.0-36.0); Mean Corpuscular Hemoglobin 30.3 pg (27.0-31.0); Mean Corpuscular Volume 92.3 fL (78.0-98.0); Mean Platelet Volume 11.5 fL (7.4-10.4); Platelet Count 138 10x3/uL (130-400); RBC Distribution Width 15.6 % (11.5-14.5); Red Blood Cell (RBC) Count 3.66 mill/uL (4.20-5.40)
[2024-01-13 10:47] LABS: ALT (SGPT) 19 U/L (8-55); AST (SGOT) 18 U/L (5-34); Albumin 3.9 g/dL (3.5-5.0); Alkaline Phosphatase 65 U/L (40-110); Anion Gap 17 mmol/L (10-20); BUN (Urea Nitrogen) 90 mg/dL (7.0-18.7); Bilirubin, Total 0.8 mg/dL (0.2-1.2); Calc. Creatinine Clearance 0 mL/min (70-130); Calcium 9.9 mg/dL (7.8-10.44); Carbon Dioxide 18 mmol/L (22-29); Chloride 113 mmol/L (98-107); Estimated GFR 3; Globulin 2.7 g/dL (2.4-3.5); Glucose 128 mg/dL (70-105); Potassium 5.2 mmol/L (3.5-5.1); Protein, Total 6.6 g/dL (6.0-8.3); Sodium 143 mmol/L (136-145)
[2024-01-13 10:48] LABS: Actual Bicarbonate (HCO3v) 18.1 mEq/L (22-28); Base Excess -6.1 mEq/L (-2.0 to +3.0); Calcium, Ionized (venous) 1.16 mmol/L (1.16-1.32); Chloride (VBG) 108 mmol/L (98-106); Hematocrit-VBG 35 % (36.0-47.0); Hemoglobin (Hb) 11.9 g/dL (11.7-16.0); Potassium (VBG) 5.07 mmol/L (3.70-5.30); Sodium 143 mmol/L (133-146); pH (venous) 7.375 (7.32-7.43)
[2024-01-13 11:03] LABS: Troponin I 0.127 ng/mL (< 0.028)
[2024-01-13] MEDS ORDERED: Senokot S 8.6-50 MG TAB PO PRN (11:51)
[2024-01-13] MEDS ORDERED: Ondansetron PF 4 MG/2 ML Vial IVP PRN (11:51)
[2024-01-13] MEDS ORDERED: Acetaminophen 325 MG TAB PO PRN (11:51)
[2024-01-13] MEDS ORDERED: HYDROcodone/Acetaminophen 5/325 mg Tablet PO PRN (11:51)
[2024-01-13] MEDS ORDERED: Calcium Carbonate 500 MG ChewTAB PO PRN (11:51)
[2024-01-13] MEDS ORDERED: niCARdipine 25 MG in Sodium Chloride 0.9% 250 ML 250 ML IVPB SCH (12:00)
[2024-01-13 12:14] LABS: Hep B Core Total Index 0.09 S/CO (0-0.79); Hep C Index 0.09 S/CO (0-0.79)
[2024-01-13 12:31] LABS: Hep B Surf Ag NONREACTIVE S/CO (NonReactive)
[2024-01-13 12:32] LABS: HBsAg Index 0.25 S/CO (0-0.99); Hep B Core Total Ab NONREACTIVE (NonReactive); Hep C IgG Ab NONREACTIVE S/CO (NonReactive)
[2024-01-13 13:22] LABS: HBSAB Concentration 10.56 mIU/mL; Hep B Surf AB GRAYZONE (NonReactive)
[2024-01-14] MEDS ORDERED: Enoxaparin 30 MG (0.3 mL) SYRINGE SC SCH (09:00)
== END 2024-01-13 12:30 | disposition left against medical advice (07) ==
LOC: ERS 09:35
DX: I16.1 Hypertensive emergency (principal); I13.2 Hypertensive heart and chronic kidney disease with heart failure and with stage 5 chronic kidney disease, or end stage renal disease; N18.6 End stage renal disease; I50.9 Heart failure, unspecified; Z99.2 Dependence on renal dialysis; F17.210 Nicotine dependence, cigarettes, uncomplicated; Z79.899 Other long term (current) drug therapy
CPT/HCPCS: 36415; 70450; 71045; 80053; 82805; 83880; 84484; 85025; 86704; 86706; 86803; 87340; 93005; 96374

== ENCOUNTER 2024-01-16 14:26 | Emergency (ER) | payer OTHER ==
[~2024-01-16 14:26] MED LIST changes: +Heparin 10,000 UNITS/ 10 ML VIAL ONE; -Iopamidol 370 76% 100 ML VIAL ONE
[2024-01-16 15:21] LABS: #Basophils 0.03 10x3/uL (0.0-0.2); %Basophils 0.5 % (0.0-1.0); %Eosinophils 3.3 % (0.0-10.0); %Lymphocytes 14.4 % (21.0-51.0); %Neutrophils 73.5 % (42.0-75.0); Hematocrit 32.6 % (36.0-47.0); Hemoglobin 10.9 g/dL (12.0-16.0); Mean Corpuscular HGB CONC 33.4 g/dL (32.0-36.0); Mean Corpuscular Volume 92.6 fL (78.0-98.0); Mean Platelet Volume 11.6 fL (7.4-10.4); Platelet Count 122 10x3/uL (130-400); RBC Distribution Width 15.4 % (11.5-14.5); Red Blood Cell (RBC) Count 3.52 mill/uL (4.20-5.40)
[2024-01-16 15:35] LABS: ALT (SGPT) 18 U/L (8-55); AST (SGOT) 12 U/L (5-34); Albumin 3.7 g/dL (3.5-5.0); Alkaline Phosphatase 66 U/L (40-110); Anion Gap 18 mmol/L (10-20); BUN (Urea Nitrogen) 94 mg/dL (7.0-18.7); Calc. Creatinine Clearance 0 mL/min (70-130); Calcium 9.3 mg/dL (7.8-10.44); Carbon Dioxide 15 mmol/L (22-29); Chloride 109 mmol/L (98-107); Estimated GFR 3; Globulin 2.6 g/dL (2.4-3.5); Glucose 108 mg/dL (70-105); Potassium 4.5 mmol/L (3.5-5.1); Protein, Total 6.3 g/dL (6.0-8.3); Sodium 137 mmol/L (136-145)
[2024-01-16] MEDS ORDERED: cloNIDine 0.1 MG TAB ONE (16:03)
[2024-01-16] MEDS ORDERED: Carvedilol 6.25 MG TAB ONE (20:38)
[2024-01-16] MEDS ORDERED: Acetaminophen 500 MG TAB ONE (20:38)
== END 2024-01-16 23:02 | disposition home or self-care (01) ==
LOC: ERS 14:26
DX: E87.20 Acidosis, unspecified (principal); I13.2 Hypertensive heart and chronic kidney disease with heart failure and with stage 5 chronic kidney disease, or end stage renal disease; N18.6 End stage renal disease; I50.9 Heart failure, unspecified; F17.210 Nicotine dependence, cigarettes, uncomplicated; Z99.2 Dependence on renal dialysis; Z79.899 Other long term (current) drug therapy
CPT/HCPCS: 80053; 85025; 93005